=== PATIENT | female | born 1980 | race Two or more races ===

== ENCOUNTER → 2023-02-17 09:18 | Outpatient (BNVA) | payer MEDICAID, SELFPAY | PROVIDERS: PCP Physician Assistant; Visit Provider Surgery ==

== ENCOUNTER 2023-03-22 08:38 | Outpatient (AMB) | payer MEDICAID, SELFPAY ==
--- OUTSIDE RECORDS SUMMARY | 2023-03-22 08:40 | XMS_ITS | Continuity of Care Document ---
Author Name Unknown Organization [facility] Address [address] [place] [address]- Care Team Providers Care Container Washer Machine Name Role Phone Wendie Love NP Primary Care Physician [id number] Date(s): [facility] - 09/08/19 [facility] [address] [place] [address]- [facility] Encounter Diagnosis Left serous otitis media(Discharge Diagnosis) - 09/01/19 Attending Physician: Emil Crespo MD Referring Physician: Wendie Love NP Allergies, Adverse Reactions, Alerts No Known Medication Allergies Medications Flonase 50 mcg/inh nasal spray See Instructions, 2 sprays both nares twice daily for 1 week, then once daily for one week, # 16 Gm, 0 Refills, Maintenance, 09/01/19 12:15:00 EDT, [place], [id number], 2 sprays both nares twice daily for 1 week, then once daily for o... Start Date: 09/01/19 Status: Ordered Problem List Condition Effective Dates Status Health Status Inform ant Amenorrhea(Confirmed) Active Pain, pelvic, female(Confirmed) Active Diagnosis Diagnosis Type Effective Dates Health Status Cl inical Service Informant Left serous otitis media Discharge Diagnosis 09/01/19 Vital Signs Most recent to oldest [Reference Range]: 1 Height 160 cm (09/01/19 11:57 AM) Weight 126.7 kg (09/01/19 11:57 AM) Oxygen Saturation [94-100 %] 98 % (09/01/19 11:57 AM) Pulse Rate [55-90 bpm] 95 bpm *H* (09/01/19 11:57 AM) Body Mass Index [18.5-24.99] 49.49 *>HHI* (09/01/19 11:57 AM) Blood Pressure [90-138/55-84 mm Hg] 138/ 86mm Hg (09/01/19 11:57 AM) Respiratory Rate [16-30 br/min] 18 br/mi n (09/01/19 11:57 AM) Temperature [96.8-100.4 DegF] 98.0 DegF (09/01/19 11:57 AM) Mode of Delivery (Oxygen) Room air (09/01/19 11:57 AM) Blood pressure sites Arm, right (09/01/19 11:57 AM) Temperature Route Temporal (09/01/19 11:57 AM) Dry Weight 126.7 kg (09/01/19 11:57 AM) Weight Obtained Via Standing scale (09/01/19 11:57 AM) Dry Weight Obtained Via Standing scale (09/01/19 11:57 AM) Social History Social History Type Response Smoking Status Never smoker entered on: 01/30/16 Sex
--- OUTSIDE RECORDS SUMMARY | 2023-03-22 08:40 | XMS_ITS | Continuity of Care Document ---
Author Name Unknown Organization [facility] Address [address] [place] [address]- Care Team Providers Care Farm Consultant Name Role Phone Not on Staff, PCP Primary Care Physician Unavail able Encounter [facility] [place] Date(s): 10/16/22 - 11/15/22 [facility] [address] [place] [address]- Attending Physician: Arnoldo Mora Admitting Physician: Arnoldo Mora Referring Physician: AdmtrArnoldo Allergies, Adverse Reactions, Alerts No Known Medication Allergies Medications betamethasone topical valerate 0.1% ointment 1 application, Topically, 2 times a day, PRN Itch, apply thin film to affected area, # 45 Gm, 0 Refills, Maintenance, 10/16/22 13:18:00 EDT, Oint[place], [facility] #[id number], Partial fill upon patient request if the prescription is for a schedule... Start Date: 10/16/22 Status: Ordered Flonase 50 mcg/inh nasal spray See Instructions, 2 sprays both nares twice daily for 1 week, then once daily for one week, # 16 Gm, 0 Refills, Maintenance, 09/01/19 12:15:00 EDT, [place], [facility] #[id number], 2 sprays both nares twice daily for 1 week, then once daily for o... Start Date: 09/01/19 Status: Ordered Problem List Condition Confirmation Course Effective Dates Status Health St atus Informant Amenorrhea Confirmed Active Pain, pelvic, female Confirmed Active Social History Social History Type Response Smoking Status Never smoker entered on: 01/30/16 Sex Patient Care team information Care Team Personnel Name: Deepika Phillips RN Position: [facility] RN Member Role: Primary Care Nurse Name: Not on Staff, PCP Position: [facility] Physician (General Medicine) Member Role: PCP Care Team Related Persons Name: AKBAR SINGLETARY Address: home [address] [place] [id number] Name: GERARD MARTINEZ Name: ORA ROSS Address: [address] [address]
--- OUTSIDE RECORDS SUMMARY | 2023-03-22 08:40 | XMS_ITS | Continuity of Care Document ---
Author Name Unknown Organization [facility] Address [address] [place] [address]- Care Team Providers Care Continuing Education Instructor Name Role Phone Wendie Love Primary Care Physician [phone] [place] [facility] [place] - 02/17/19 [facility] [address] [address]- [facility] Attending Physician: Arnoldo Mora Admitting Physician: Arnoldo Mora Referring Physician: Arnoldo Mora Allergies, Adverse Reactions, Alerts No Known Medication Allergies Problem List Condition Effective Dates Status Health Status Inform ant Amenorrhea(Confirmed) Active Pain, pelvic, female(Confirmed) Active Social History Social History Type Response Smoking Status Never smoker entered on: 01/30/16 Sex
--- OUTSIDE RECORDS SUMMARY | 2023-03-22 08:40 | XMS_ITS | Continuity of Care Document ---
Author Name Unknown Organization [facility] Address [address] [place] [address]- Care Team Providers Care Superintendent House Name Role Phone Not on Staff, PCP Primary Care Physician Unavail able En[place] [facility] [place] Date(s): 08/09/20 - 08/16/20 [facility] [address] [place] [address]- Attending Physician: Ramona Proctor MD Allergies, Adverse Reactions, Alerts No Known Medication Allergies Medications Bactrim DS 800 mg-160 mg oral tablet 1 tablet, By Mouth, 2 times a day, for 10 days, # 20 tablet, 0 Refills, Acute 08/19/20 11:30:00 EDT, 08/09/20 11:30:00 EDT, [place], [email or web address][id number], Partial fill upon patient request if the prescription is for a schedule II opioid drug., 1... Start Date: 08/09/20 Stop Date: 08/19/20 Status: Ordered Flonase 50 mcg/inh nasal spray See Instructions, 2 sprays both nares twice daily for 1 week, then once daily for one week, # 16 Gm, 0 Refills, Maintenance, 09/01/19 12:15:00 EDT, [place], [email or web address] #[id number], 2 sprays both nares twice daily for 1 week, then once daily for o... Start Date: 09/01/19 Status: Ordered Problem List Condition Effective Dates Status Health Status Inform ant Amenorrhea(Confirmed) Active Pain, pelvic, female(Confirmed) Active Vital Signs Most recent to oldest [Reference Range]: 1 Height 160 cm (08/09/20 11:09 AM) Oxygen Saturation [94-100 %] 100 % (08/09/20 11:09 AM) Pulse Rate [55-90 bpm] 85 bpm (08/09/20 11:09 AM) Blood Pressure [90-138/55-84 mm Hg] 118/ 75mm Hg (08/09/20 11:09 AM) Respiratory Rate [16-30 br/min] 20 br/mi n (08/09/20 11:09 AM) Temperature [96.8-100.4 DegF] 96.9 DegF (08/09/20 11:09 AM) Mode of Delivery (Oxygen) Room air (08/09/20 11:09 AM) Blood pressure sites Arm, right (08/09/20 11:09 AM) Social History Social History Type Response Smoking Status Never smoker entered on: 01/30/16 Sex
--- OUTSIDE RECORDS SUMMARY | 2023-03-22 08:40 | XMS_ITS | Continuity of Care Document ---
Author Name Unknown Organization [facility] Address [address] [place] [address]- Care Team Providers Care Residential Lawn Specialist Name Role Phone Not on Staff, PCP Primary Care Physician Unavail able Encounter [facility] [place] Date(s): 02/16/21 - 02/23/21 [facility] [address] [place] [address]- Attending Physician: Ramona Proctor MD Referring Physician: Mei Joya Allergies, Adverse Reactions, Alerts No Known Medication Allergies Medications Flonase 50 mcg/inh nasal spray See Instructions, 2 sprays both nares twice daily for 1 week, then once daily for one week, # 16 Gm, 0 Refills, Maintenance, 09/01/19 12:15:00 EDT, [place], [facility] #[id number], 2 sprays both nares twice daily for 1 week, then once daily for o... Start Date: 09/01/19 Status: Ordered ibuprofen 600 mg oral tablet 600 mg, 1, tablet, By Mouth, 3 times a day, PRN, for 10 days, Take with food, # 30 tablet, Refills 0, Tot. Refills 0, Acute 02/26/21 10:21:00 EST, pain, 02/16/21 10:21:00 EST, Route to Pharmacy Electronically, [facility] #[id number], Label in SPa... Start Date: 02/16/21 Stop Date: 02/26/21 Status: Ordered Problem List Condition Effective Dates Status Health Status Inform ant Amenorrhea(Confirmed) Active Pain, pelvic, female(Confirmed) Active Social History Social History Type Response Smoking Status Never smoker entered on: 01/30/16 Sex
--- OUTSIDE RECORDS SUMMARY | 2023-03-22 08:40 | XMS_ITS | Continuity of Care Document ---
Author Name Unknown Organization [facility] Address [address] [place] [address]- Care Team Providers Care Global Lead Name Role Phone Not on Staff, PCP Primary Care Physician Unavail able Encounter [facility] [place] Date(s): 03/03/20 - 03/04/[address] [address]- Encounter Diagnosis Palpitations(Final) - 03/04/20 Discharge Disposition: A-D/C Home Attending Physician: Elia Tam MD Admitting Physician: Elia Tam MD Referring Physician: Not on Staff, Referring MD Allergies, Adverse Reactions, Alerts No Known Medication Allergies Medications Flonase 50 mcg/inh nasal spray See Instructions, 2 sprays both nares twice daily for 1 week, then once daily for one week, # 16 Gm, 0 Refills, Maintenance, 09/01/19 12:15:00 EDT, [place], [facility] #[id number], 2 sprays both nares twice daily for 1 week, then once daily for o... Start Date: 09/01/19 Status: Ordered Problem List Condition Effective Dates Status Health Status Inform ant Amenorrhea(Confirmed) Active Pain, pelvic, female(Confirmed) Active Results Radiology Reports * Exam Date Time Procedure Performing Provider Status 03/04/20 2:25 AM Chest 2 Views Frontal and Lat Moses Stevens (Verified) Notes: (Chest 2 Views Frontal and Lat) Reason For Exam: Shortness of Breath, Fever;Other: RESULT: Chest 2 Views Frontal and Lat Examination: Chest performed on 03/04/2019. History: Palpitations and left chest pain. Findings: Frontal and lateral views of the chest are compared to a prior study dated 02/17/[address] chest dated 01/07/2018. The cardiac and mediastinal silhouettes are within normal limits. The lungs are clear. A right pleural-based mass appears to have increased slightly in size since the prior study, currently measuring4.3 cm, previously 4.2 cm. The difference in size may be projectional. This corresponds to a mixed fat density lesion on CT. The osseous and soft tissue structures are unremarkable. Impression: There is no acute cardiopulmonary disease. Pleural-based mass within the right upper lobe corresponding to the CT abnormality. Given the mixed density on CT, a follow-up CT may be obtained to assess for interval change. A Yellow message has been communicated via the [employer] system on 03/04/2020 8:12 AM, Message ID [id number]. WSN: [id number] Ordering Physician: Kaylynn Fernandes Dictated By: Corrie Workman MD Dictated Date/Time: 03/04/20 8:13 am Reviewed By: Corrie Workman MD Signed By: Corrie Workman MD Signed Date/Time: 03/04/20 8:13 am Transcribed By: BRUCE Transcribed Date/Time: 03/04/20 8:11 am Vital Signs Most recent to oldest [Reference Range]: 1 2 3 Oxygen Saturation [94-100 %] 100 % (03/04/20 3:24 AM) 100 % (03/03/20 7:15 PM) 100 % (03/03/20 2:42 PM) Pulse Rate [55-90 bpm] 75 bpm (03/04/20 3:24 AM) 92 bpm *H* (03/03/20 7:15 PM) 88 bpm (03/03/20 2:42 PM) Blood Pressure [90-138/55-84 mm Hg] 146/90mm Hg *H* (03/04/20 3:24 AM) 147/79mm Hg *H* (03/03/20 7:15 PM) 144/101mm Hg *H* (03/03/20 2:42 PM) Respiratory Rate [16-30 br/min] 16 br/min (03/04/20 3:24 AM) 16 br/min (03/03/20 7:15 PM) 18 br/min (03/03/20 2:42 PM) Temperature [96.8-100.4 DegF] 97.7 DegF (03/04/20 3:24 AM) 98.1 DegF (03/03/20 2:42 PM) Mode of Delivery (Oxygen) Room air (03/04/20 3:24 AM) Room air (03/03/20 7:15 PM) Room air (03/03/20 2:42 PM) Blood pressure sites Arm, right (03/04/20 3:24 AM) Arm, right (03/03/20 7:15 PM) Temperature Route Oral (03/04/20 3:24 AM) Oral (03/03/20 2:42 PM) Social History Social History Type Response Smoking Status Never smoker entered on: 01/30/16 Sex
--- OUTSIDE RECORDS SUMMARY | 2023-03-22 08:40 | XMS_ITS | Continuity of Care Document ---
Author Name Unknown Organization [facility] Address [address] [place] [address]- Care Team Providers Care Bass Mechanism Maker Name Role Phone Mei Joya Primary Care Physicia n Encounter [facility] [id number] Date(s): 10/16/22 - 10/23/22 [facility] [address] [place] [address]- Encounter Diagnosis Rash(Discharge Diagnosis) - 10/16/22 Attending Physician: Cayden STEPHESNON, Linnea Parmar Referring Physician: Not on Staff, Referring MD Allergies, Adverse Reactions, Alerts No Known Medication Allergies Medications betamethasone topical valerate 0.1% ointment 1 application, Topically, 2 times a day, PRN Itch, apply thin film to affected area, # 45 Gm, 0 Refills, Maintenance, 10/16/22 13:18:00 EDT, [place]int[place], [facility] #[id number], Partial fill upon patient request if the prescription is for a schedule... Start Date: 10/16/22 Status: Ordered Flonase 50 mcg/inh nasal spray See Instructions, 2 sprays both nares twice daily for 1 week, then once daily for one week, # 16 Gm, 0 Refills, Maintenance, 09/01/19 12:15:00 EDT, [place], [id number], 2 sprays both nares twice daily for 1 week, then once daily for o... Start Date: 09/01/19 Status: Ordered Problem List Condition Confirmation Course Effective Dates Status Health St atus Informant Amenorrhea Confirmed Active Pain, pelvic, female Confirmed Active Diagnosis Diagnosis Type Effective Dates Health Status Clini karli Service Informant Rash Discharge Diagnosis 10/16/22 Vital Signs Most recent to oldest [Reference Range]: 1 Height 160 cm (10/16/22 12:52 PM) Oxygen Saturation [94-100 %] 98 % (10/16/22 12:52 PM) Pulse Rate [55-90 bpm] 62 bpm (10/16/22 12:52 PM) Blood Pressure [90-138/55-84 mm Hg] 127/ 58mm Hg (10/16/22 12:52 PM) Respiratory Rate [16-30 br/min] 16 br/mi n (10/16/22 12:52 PM) Temperature [96.8-100.4 DegF] 98.1 DegF (10/16/22 12:52 PM) Mode of Delivery (Oxygen) Room air (10/16/22 12:52 PM) Blood pressure sites Arm, right (10/16/22 12:52 PM) Temperature Route Oral (10/16/22 12:52 PM) Social History Social History Type Response Smoking Status Never smoker entered on: 01/30/16 Sex Note * Kaleigh Ibarra: PERFORM, SIGN, VERIFY Event Display: Patient Education/Instruction Authored Date: [id number] [facility] *[facility] Clinical Summary Name SANDRA ESCOBEDO Age 42 Years 1980 PCP Not on Staff, PCP PCP Phone Visit Date 10/16/2022 12:00:00 Additional Instructions: Scheduled Appointments?? Future Appointments ?[facility] ?[address]??[place],??[place],??[address] ?Phone:??[phone]?Fax:??-- ?Appt. Date:??10/22/2022?2:00 PM ?Scheduled Provider:??[facility] 5 Follow-Up Instructions ?? Diagnosis Rash and other nonspecific skin eruption Medications: Please continue your medications until treatment is completed or stopped by your provider. Discuss any questions related to medications with your provider. New Medications [facility] #[id number], [address], [place] [id number], [phone] Betamethasone Topical (betamethasone topical valerate 0.1% ointment) 1 brad Topically twice a day asneeded Itch. apply thin film to affected area. Refills: 0. Next Dose: Medications to Continue with No Changes These medications were not printed or sent to your pharmacy Fluticasone Nasal (Flonase 50 mcg/inh nasal spray) 2 sprays both nares twice daily for 1 week, thenonce daily for one week. Refills: 0. Next Dose: Allergy Info:?? No Known Medication Allergies Medications Given This Visit Future Orders ?No future orders Vital Signs Height 160 cm Weight BMI Blood Pressure 127 mm Hg/58 mm Hg Temperature 98.1 DegF Pulse Rate 62 bpm Respiratory Rate 16 br/min 02 Sat Mode of Delivery 98 %/Room air You can now view a summary of your hospital visit from the comfort of your home through a free online portal called [employer]. [employer] is a website that allows you to securely view your medical information including discharge summary, medications and follow-up visits. ??You can alsosend a secure electronic message to your doctor???s office to request appointments, renew medications or just ask a question. You can enroll at [email or web address] or register during your next office visit. Disclaimer:?? The information provided is of a general nature and is intended to be used in conjunction with the recommendations and advice of your health care practitioner. ??Every effort has been made to ensure that the information provided is accurate and complete at the time it is provided to you however, as your needs change, or, as new ??information becomes available, different or additional instructions may be required. If you have questions, please consult with your primary care provider or pharmacist, as appropriate. ??This information is not intended to serve as substitution for assessment and evaluation by a qualified health care provider. If you do not have a primary care provider, you may find a [facility] provider by calling [facility] Remote Assistant [facility] at [phone]. For information about the plan of care including goals and instructions for your diagnosis, please see the patient education orders section of this document. Patient Education Materials?? The content of this educational material or handout may have been modified, supplemented, or adapted from its original content and format to support your individualized medical care. Patient Care team information Care Team Personnel Name: Deepika Phillips RN Position: S RN Member Role: Primary Care Nurse Name: Mei Joya Position: Reference Physician Member Role: PCP Address: Address: [address] [place] [address]- Care Team Related Persons Name: AKBAR SINGLETARY Address: [address] [address] Name: GERARD MARTINEZ Name: ORA ROSS Address: [place] [address]
--- OUTSIDE RECORDS SUMMARY | 2023-03-22 08:40 | XMS_ITS | Continuity of Care Document ---
Author Name Unknown Organization [facility] Address [address] [place] [address]- Care Team Providers Care And Rescue Fire Fighter Crash Fire Name Role Phone Not on Staff, PCP Primary Care Physician Unavail able Encounter [facility] [place] Date(s): 11/18/22 - 11/25/22 [facility] [address] [place] [address]- Encounter Diagnosis Herpes labialis(Discharge Diagnosis) - 11/18/22 Attending Physician: Ramona Proctor MD Referring Physician: Mei Joya Allergies, Adverse Reactions, Alerts No Known Medication Allergies Medications betamethasone topical valerate 0.1% ointment 1 application, Topically, 2 times a day, PRN Itch, apply thin film to affected area, # 45 Gm, 0 Refills, Maintenance, 10/16/22 13:18:00 EDT, [place], [facility] #[id number], Partial fill upon patient request if the prescription is for a schedule... Start Date: 10/16/22 Status: Ordered Flonase 50 mcg/inh nasal spray See Instructions, 2 sprays both nares twice daily for 1 week, then once daily for one week, # 16 Gm, 0 Refills, Maintenance, 09/01/19 12:15:00 EDT, [place], [facility] #[id number], 2 sprays both nares twice daily for 1 week, then once daily for o... Start Date: 09/01/19 Status: Ordered Problem List Condition Confirmation Course Effective Dates Status Health St atus Informant Amenorrhea Confirmed Active Pain, pelvic, female Confirmed Active Diagnosis Diagnosis Type Effective Dates Health Status Cl inical Service Informant Herpes labialis Discharge Diagnosis 9/20/23 Vital Signs Most recent to oldest [Reference Range]: 1 Height 160 cm (11/18/22 1:15 PM) Oxygen Saturation [94-100 %] 97 % (11/18/22 1:15 PM) Pulse Rate [55-90 bpm] 75 bpm (11/18/22 1:15 PM) Blood Pressure [90-138/55-84 mm Hg] 134/ 89mm Hg (11/18/22 1:15 PM) Temperature [96.8-100.4 DegF] 97.2 DegF (11/18/22 1:15 PM) Mode of Delivery (Oxygen) Room air (11/18/22 1:15 PM) Blood pressure sites Arm, right (11/18/22 1:15 PM) Temperature Route Temporal (11/18/22 1:15 PM) Social History Social History Type Response Smoking Status Never smoker entered on: 01/30/16 Sex Note * Saundra Weinstein: PERFORM, SIGN, VERIFY Event Display: Patient Education/Instruction Authored Date: [id number] *[facility] Clinical Summary Name SANDRA ESCOBEDO Age 42 Years 1980 PCP Not on Staff, PCP PCP Phone Visit Date 11/18/2022 11:35:00 Additional Instructions: Scheduled Appointments?? Future Appointments ?No Future Appointments Scheduled Follow-Up Instructions ?? Diagnosis Medications: Please continue your medications until treatment is completed or stopped by your provider. Discuss any questions related to medications with your provider. Medications to Continue with No Changes These medications were not printed or sent to your pharmacy Betamethasone Topical (betamethasone topical valerate 0.1% ointment) 1 brad Topically twice a day asneeded Itch. apply thin film to affected area. Refills: 0. Next Dose: Fluticasone Nasal (Flonase 50 mcg/inh nasal spray) 2 sprays both nares twice daily for 1 week, thenonce daily for one week. Refills: 0. Next Dose: Allergy Info:?? No Known Medication Allergies Medications Given This Visit Future Orders ?No future orders Vital Signs Height 160 cm Weight BMI Blood Pressure 134 mm Hg/89 mm Hg Temperature 97.2 DegF Pulse Rate 75 bpm Respiratory Rate 02 Sat Mode of Delivery 97 %/Room air You can now view a summary of your hospital visit from the comfort of your home through a free online portal called [employer]. [employer] is a website that allows you to securely view your medical information including discharge summary, medications and follow-up visits. ??You can alsosend a secure electronic message to your doctor???s office to request appointments, renew medications or just ask a question. You can enroll at [email or web address] or register during your next office visit. [...] primary care provider, you may find a [facility] provider by calling [facility] [facility] at [phone]. [facility], in keeping with [facility] guidance, no longer requires face masks for staff, patientsor visitors in most situations. Similar to time spent indoors at other locations, there is the chance that you were exposed to respiratory viruses during your time with us (such as flu or COVID-19).? If you develop symptoms concerning for a viral respiratory infection, please seek testing (and treatment if indicated) from your medical provider or home test kit. For information about the plan of care [...] Nurse Name: Not on Staff, PCP Position: [facility] Physician (General Medicine) Member Role: PCP Care Team Related Persons Name: AKBAR SINGLETARY Address: [place] [address] Name: GERARD MARTINEZ Name: ORA ROSS Address: [place] [address]
--- OUTSIDE RECORDS SUMMARY | 2023-03-22 08:40 | XMS_ITS | Continuity of Care Document ---
Author Name Unknown Organization [facility] Address [address] [place] [address]- Care Team Providers Care Spindle Carver Name Role Phone Not on Staff, PCP Primary Care Physician Unavail able Encounter [facility] Date(s): 02/16/21 - 03/18/21 [facility] [address] [place] [address]- Attending Physician: Arnoldo Mora Admitting Physician: Arnoldo Mora Referring Physician: AdmtrArnoldo Allergies, Adverse Reactions, Alerts No Known Medication Allergies Medications Flonase 50 mcg/inh nasal spray See Instructions, 2 sprays both nares twice daily for 1 week, then once daily for one week, # 16 Gm, 0 Refills, Maintenance, 09/01/19 12:15:00 EDT, [place], [facility] #[id number], 2 sprays both nares twice daily for 1 week, then once daily for o... Start Date: 09/01/19 Status: Ordered Problem List Condition Effective Dates Status Health Status Inform ant Amenorrhea(Confirmed) Active Pain, pelvic, female(Confirmed) Active Social History Social History Type Response Smoking Status Never smoker entered on: 01/30/16 Sex
--- OUTSIDE RECORDS SUMMARY | 2023-03-22 08:40 | XMS_ITS | Continuity of Care Document ---
Author Name Unknown Organization [facility] Address [address] [place] [address]- Care Team Providers Care Primary Operator Name Role Phone Not on Staff, PCP Primary Care Physician Unavail able Encounter [facility] Date(s): 08/09/20 - 09/08/20 [facility] [address] [place] [address]- Attending Physician: Arnoldo Mora Admitting Physician: Arnoldo Mora Referring Physician: AdmtrArnoldo Allergies, Adverse Reactions, Alerts No Known Medication Allergies Medications Flonase 50 mcg/inh nasal spray See Instructions, 2 sprays both nares twice daily for 1 week, then once daily for one week, # 16 Gm, 0 Refills, Maintenance, 09/01/19 12:15:00 EDT, [place], [facility] #[id number], 2 sprays both nares twice daily for 1 week, then once daily for o... Start Date: 09/01/19 Status: Ordered Problem List Condition Effective Dates Status Health Status Inform ant Amenorrhea(Confirmed) Active Pain, pelvic, female(Confirmed) Active Social History Social History Type Response Smoking Status Never smoker entered on: 01/30/16 Sex
--- OUTSIDE RECORDS SUMMARY | 2023-03-22 08:40 | XMS_ITS | Continuity of Care Document ---
Author Name Unknown Organization [facility] Address [address] [place] [address]- Care Team Providers Care Central Office Supervisor Name Role Phone Not on Staff, PCP Primary Care Physician Unavail able Encounter [facility] [place] Date(s): 11/18/22 - 12/18/22 [facility] [address] [place] [address]- Attending Physician: Arnoldo Mora Admitting Physician: Arnoldo Mora Referring Physician: AdmtrArnoldo Allergies, Adverse Reactions, Alerts No Known Medication Allergies Medications betamethasone topical valerate 0.1% ointment 1 application, Topically, 2 times a day, PRN Itch, apply thin film to affected area, # 45 Gm, 0 Refills, Maintenance, 10/16/22 13:18:00 EDT, [place], [facility] #[id number], Partial fill upon patient request if the prescription is for a schedule... Start Date: 10/16/22 Status: Ordered Flonase 50 mcg/inh nasal spray See Instructions, 2 sprays both nares twice daily for 1 week, then once daily for one week, # 16 Gm, 0 Refills, Maintenance, 09/01/19 12:15:00 EDT, [place], [facility] #[id number], 2 sprays both nares twice daily for [...] Nurse Name: Not on Staff, PCP Position: [facility] Physician (General Medicine) Member Role: PCP Care Team Related Persons Name: AKBAR SINGLETARY Address: home [address] [place] [id number] Name: GERARD MARTINEZ Name: ORA ROSS Address: [address] [address]
--- OUTSIDE RECORDS SUMMARY | 2023-03-22 08:40 | XMS_ITS | Continuity of Care Document ---
Author Name Unknown Organization [facility] Address [address] [place] [address]- Care Team Providers Care Nurse Transitional Name Role Phone Kate HINOJOSA, Wendie Primary Care Physician [phone] Encounter [facility] [place] Date(s): 09/01/19 - 10/01/19 [facility] [address] [place] [address]- [facility] Attending Physician: Arnoldo Mora Admitting Physician: Arnoldo Mora Referring Physician: Arnoldo Mora Allergies, Adverse Reactions, Alerts No Known Medication Allergies Medications Flonase 50 mcg/inh nasal spray See Instructions, 2 sprays both nares twice daily for 1 week, then once daily for one week, # 16 Gm, 0 Refills, Maintenance, 09/01/19 12:15:00 EDT, [place], [facility] #[id number], 2 sprays both nares twice daily for 1 week, then once daily for o... Start Date: 09/01/19 Status: Ordered Problem List Condition Effective Dates Status Health Status Inform ant Amenorrhea(Confirmed) Active Pain, pelvic, female(Confirmed) Active Social History Social History Type Response Smoking Status Never smoker entered on: 01/30/16 Sex
--- OUTSIDE RECORDS SUMMARY | 2023-03-22 08:40 | XMS_ITS | Continuity of Care Document ---
Author Name Unknown Organization [facility] Address [address] [place] [address]- Care Team Providers Care Bottle Selector Name Role Phone Not on Staff, PCP Primary Care Physician Unavail able Encounter [facility] [place] Date(s): 06/26/21 - 07/26/21 [facility] [address] [place] [address]- Attending Physician: Arnoldo Mora Admitting Physician: Arnoldo Mora Referring Physician: trArnoldo Allergies, Adverse Reactions, Alerts No Known Medication Allergies Medications Flonase 50 mcg/inh nasal spray See Instructions, 2 sprays both nares twice daily for 1 week, then once daily for one week, # 16 Gm, 0 Refills, Maintenance, 09/01/19 12:15:00 EDT, [place], [facility] #[id number], 2 sprays both nares twice daily for 1 week, then once daily for o... Start Date: 09/01/19 Status: Ordered Problem List Condition Effective Dates Status Health Status Inform ant Amenorrhea(Confirmed) Active Pain, pelvic, female(Confirmed) Active Social History Social History Type Response Smoking Status Never smoker entered on: 01/30/16 Sex
--- OUTSIDE RECORDS SUMMARY | 2023-03-22 08:40 | XMS_ITS | Continuity of Care Document ---
Author Name Unknown Organization [facility] Address [address] [place] [address]- Care Team Providers Care Executive Chairman Name Role Phone Not on Staff, PCP Primary Care Physician Unavail able Encounter [facility] [place](s): 06/26/21 - 07/03/21 [facility] [address] [place] [address]- Attending Physician: Hunter Bass DO Referring Physician: Mei Joya Allergies, Adverse Reactions, Alerts No Known Medication Allergies Medications Flonase 50 mcg/inh nasal spray See Instructions, 2 sprays both nares twice daily for 1 week, then once daily for one week, # 16 Gm, 0 Refills, Maintenance, 09/01/19 12:15:00 EDT, [place], [facility] #[id number], 2 sprays both nares twice daily for 1 week, then once daily for o... Start Date: 09/01/19 Status: Ordered Problem List Condition Effective Dates Status Health Status Inform ant Amenorrhea(Confirmed) Active Pain, pelvic, female(Confirmed) Active Vital Signs Most recent to oldest [Reference Range]: 1 Height 160 cm (06/26/21 4:36 PM) Oxygen Saturation [94-100 %] 100 % (06/26/21 4:36 PM) Pulse Rate [55-90 bpm] 54 bpm *L* (06/26/21 4:36 PM) Blood Pressure [90-138/55-84 mm Hg] 118/ 74mm Hg (06/26/21 4:36 PM) Respiratory Rate [16-30 br/min] 24 br/mi n (06/26/21 4:36 PM) Temperature [96.8-100.4 DegF] 98.7 DegF (06/26/21 4:36 PM) Mode of Delivery (Oxygen) Room air (06/26/21 4:36 PM) Blood pressure sites Arm, left (06/26/21 4:36 PM) Temperature Route Temporal (06/26/21 4:36 PM) Social History Social History Type Response Smoking Status Never smoker entered on: 01/30/16 Sex
--- NOTE | 2023-03-22 13:15 | MHC.OFFVISWM ---
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* HPI Details Start time: 1.10m, End time: 1.47pm ?I spent 32 minutes speaking with the patient on the phone plus an additional 5 minutes reviewing and updating records for a total of 37 minutes HPI Comments History of Present Illness Details Previous weight loss efforts: diet teas Wakes up: 5am, sleeps: 11pm Breakfast: skips Lunch: skips Dinner: 5pm (rice, beans and meat) Snacks: 12pm (sandwich, fries), 7-8pm (ice cream) Exercise: none, has home stationary bike Fluids: Coffee 1cup/day (cream), tea: none, soda: none, juice: occasionaly apple juice, ETOH: 1 beer per week some weeks PFSH Medical History (Updated 03/22/23 @ 13:19 by Angel Hull MD) GERD (gastroesophageal reflux disease) DJD (degenerative joint disease) Morbid obesity Surgical History (Updated 02/17/23 @ 10:07 by Josette Nguyen CMA) Hx of section Family History (Updated 02/17/23 @ 10:09 by Josette Nguyen CMA) Mother Hypertension Alzheimer disease Father Hypertension Diabetes Daughter No problems noted. Daughter No problems noted. Son Autism Social History (Updated 02/17/23 @ 10:09 by Josette Nguyen CMA) Alcohol intake: current Patient Tobacco Use Status: Never used Tobacco Assessment & Plan Assessment & Plan (1) Morbid obesity: Code(s): E66.01 - Morbid (severe) obesity due to excess calories Plan: 1.? Plan for lap sleeve gastrectomy. If diaphragmatic or ventral hernias are present at time of surgery, these will be repaired laparoscopically as well. Risks and complications were discussed in detail including possible conversion to an open procedure, anastomotic leak, bleeding requiring transfusion, small bowel obstruction, , DVT and pulmonary embolism, cardiac, or pulmonary complications, as longterm complications such as anastomotic ulcer, insufficient weight loss and vitamin deficiencies. I emphasized the importance of close follow-up, adherence to instructions and good communication. 2. Nutritional counseling. Start with 2 Isopure INFUSION protein shakes (buy at [employer]) shakes (HALF scoop EACH in 8oz water) at 6am-8am and 9am-11am, 2 protein bars (Zone Perfect protein bars, buy at [employer]) at 12pm-2pm and 3pm-5pm, dinner at 6pm (12 forks of protein and 12 forks of salad/vegetables) and one more protein bar after dinner at 8pm-10pm. So you do 2 protein shakes, 3 protein bars and one meal per day. Meal to include lean meat (beef, fish, pork, turkey, chicken), or wolof yogurt, or egg whites, or beans with a salad with olive oil and fruits (berries, pears, apples, kiwi). Avoid salt, breads, potatoes, rice, pasta, desserts. 3. Each shake would be drunk slowly, like coffee in a period of 2 hours. 4. Cut each bar in 4 pieces and eat each piece in 30min ?to make each bar last 2 hours. 5. I emphasized the importance of measuring accurately the food portion and measure it when serving the food in plate 6. The meal portions include 12 full-size forks of meat and 12 full-size forks of salad. You always eat the meat portion but you can replace up to 6 forks for salad/vegetables with rice, potatoes or pasta, or a fruit ?if you like. The less you do it the better weight loss will be. 7. One full-size fork is what it can be scooped on the fork without falling aside and not what can be bit with the fork. Use regular forks like those you find in a typical restaurant. 8.? Please send me weight measurements as soon as possible and then once a week. Always include your diet and exercise plan. 9. Alternatively start stationary bike at a resistance level of 4.0 Increase level by 1.0 every 3 min to a max level of 10.0. Stay at this level for 3 min and then return to level 4.0 and repeat same steps until 300 calories are burned. Goal is to burn 2000 calories per week on exercise, which means either 300 calories daily, or 400 calories 5 days per week, or 500 calories 4 days per week, or 650 calories 3 days per week. 10.?It is important of avoiding and for at least 18 months postoperatively and has been discussed at the infosession. 11. Goal is to lose at least 1.5-2lbs per week 12. Goal to lose 10% of your weight before surgery, which is about 28lbs. Ultimate weight goal: 254lbs before surgery 13. Please follow the diet plan exactly without any change. If you don't like something about the plan or you feel hungry you need to communicate with me so I can help you revise the plan. You should not change the plan yourself. Orders: Orders H Pylori Breath Test Today E66.01 - Morbid (severe) obesity due to excess calories, K21.9 - Gastro-esophageal reflux disease without esophagitis Complete Blood Count Auto Diff Today E66.01 - Morbid (severe) obesity due to excess calories, K21.9 - Gastro-esophageal reflux disease without esophagitis Lipid Panel Today E66.01 - Morbid (severe) obesity due to excess calories, K21.9 - Gastro-esophageal reflux disease without esophagitis Comprehensive Met. Panel Today E66.01 - Morbid (severe) obesity due to excess calories, K21.9 - Gastro-esophageal reflux disease without esophagitis Vitamin B12 and Folate Today E66.01 - Morbid (severe) obesity due to excess calories, K21.9 - Gastro-esophageal reflux disease without esophagitis C Reactive Protein Today E66.01 - Morbid (severe) obesity due to excess calories, K21.9 - Gastro-esophageal reflux disease without esophagitis Vitamin B1 Today E66.01 - Morbid (severe) obesity due to excess calories, K21.9 - Gastro-esophageal reflux disease without esophagitis US abdomen comp w elastography Today E66.01 - Morbid (severe) obesity due to excess calories, K21.9 - Gastro-esophageal reflux disease without esophagitis Insulin Today E66.01 - Morbid (severe) obesity due to excess calories, K21.9 - Gastro-esophageal reflux disease without esophagitis Hemoglobin A1c Today E66.01 - Morbid (severe) obesity due to excess calories, K21.9 - Gastro-esophageal reflux disease without esophagitis IRON PROFILE Today E66.01 - Morbid (severe) obesity due to excess calories, K21.9 - Gastro-esophageal reflux disease without esophagitis Zinc Today E66.01 - Morbid (severe) obesity due to excess calories, K21.9 - Gastro-esophageal reflux disease without esophagitis Vitamin A Today E66.01 - Morbid (severe) obesity due to excess calories, K21.9 - Gastro-esophageal reflux disease without esophagitis TSH reflex Free T4 Today E66.01 - Morbid (severe) obesity due to excess calories, K21.9 - Gastro-esophageal reflux disease without esophagitis Ferritin Today E66.01 - Morbid (severe) obesity due to excess calories, K21.9 - Gastro-esophageal reflux disease without esophagitis Vitamin D 25-OH Total Today E66.01 - Morbid (severe) obesity due to excess calories, K21.9 - Gastro-esophageal reflux disease without esophagitis XR chest 2V Today E66.01 - Morbid (severe) obesity due to excess calories, K21.9 - Gastro-esophageal reflux disease without esophagitis ECG 12 lead EKG Today E66.01 - Morbid (severe) obesity due to excess calories, K21.9 - Gastro-esophageal reflux disease without esophagitis FL upper GI w air Today E66.01 - Morbid (severe) obesity due to excess calories, K21.9 - Gastro-esophageal reflux disease without esophagitis Referrals Behavioral Health Referral E66.01 - Morbid (severe) obesity due to excess calories, K21.9 - Gastro-esophageal reflux disease without esophagitis Nutrition/Dietitian Referral E66.01 - Morbid (severe) obesity due to excess calories, K21.9 - Gastro-esophageal reflux disease without esophagitis Telehealth Telehealth Location of provider rendering services: practice address Location of patient: address on file Patient Identification confirmed using: Name, : Yes Telehealth method: voice only Patient verbally consented to treatment: Yes Patient verbally consented to billing insurance company: Yes Patient informed of any privacy concerns related to visit: Yes Minutes spent on Phone/Video with Pt.: 37 Coding Level of Care Code Tele [facility] Pt Level 3 (03045) Diagnoses Morbid obesity E66.01 Time Spent (min) 37 Comment 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
[2023-03-22 13:25] VITALS: BMI 53.3
== END 2023-03-22 13:47 | disposition home or self-care (01) ==
LOC: HO.HBS 08:39
PROVIDERS: PCP Physician Assistant; Visit Provider Surgery
DX: E66.01 Morbid (severe) obesity due to excess calories (principal); Z68.43 Body mass index [BMI] 50.0-59.9, adult
CPT/HCPCS: 99203

== ENCOUNTER → 2023-03-22 08:38 | Outpatient (BNVA) | payer MEDICAID, SELFPAY | PROVIDERS: PCP Physician Assistant; Visit Provider Surgery ==

== ENCOUNTER 2023-03-26 08:59 | Outpatient (REF) | payer MEDICAID, SELFPAY ==
--- NOTE | ~2023-03-26 | XR_ITS ---
EXAMINATION: XR CHEST CLINICAL INFORMATION: Morbid severe obesity due to excess calories. COMPARISON: None available. TECHNIQUE: 2 views of the chest were obtained. FINDINGS: There is a 4.8 x 4.0 cm smooth round mass right upper lobe without any underlying bony erosive changes or calcification. Rest of lungs are well-expanded and clear. Heart size enlarged. Pulmonary vascularity is normal. No gross bony abnormality seen. XR/XR chest 2V IMPRESSION: 1. 4.8 x 4.0 cm smooth round mass right upper lobe. 2. Mild cardiomegaly. 3. Recommend CT correlation.
[2023-03-26 09:18] LABS: MANUAL DIFF FLAG NO
--- NOTE | 2023-03-26 09:24 | ECG_ITS ---
Test Reason : E66.01 Blood Pressure : / mmHG Vent. Rate : 067 BPM Atrial Rate : 067 BPM P-R Int : 132 ms QRS Dur : 084 ms QT Int : 404 ms P-R-T Axes : 025 004 003 degrees QTc Int : 426 ms Normal sinus rhythm Normal ECG No previous ECGs available Referred By: Angel Hull Electronically Signed By:Americo Kemp
[2023-03-26 09:36] LABS: Basophils Percent Auto 0.3 % (0-2); Eosinophils Absolute Auto 0.1 X10*3/uL (0.0-0.4); Eosinophils Percent Auto 1.2 % (0-4); Hematocrit 36.2 % (37.0-47.0); Hemoglobin 11.4 g/dl (12.0-16.0); Imm Gran Abs Auto 0.04 X10*3/uL (0.00-0.03); Imm Gran Pct Auto 0.4 % (0.0-0.4); Lymphocytes Absolute Auto 3.3 X10*3/uL (1.2-4.9); Mean Corpuscular HGB Conc 31.5 g/dl (31.0-35.0); Mean Corpuscular Hemoglobin 25.7 pg (27.0-33.0); Mean Corpuscular Volume 81.7 fL (80.0-98.0); Monocytes Absolute Auto 0.5 X10*3/uL (0.1-1.2); Monocytes Percent Auto 5.1 % (2-11); Neutrophils Absolute Auto 5.5 x10*3/uL (2.0-8.3); Platelet Count 412 X10*3/uL (160-400); Red Blood Count 4.43 X10*6/uL (4.20-5.50); Red Cell Distribution Width 13.6 % (11.0-16.0); White Blood Count 9.5 X10*3/uL (4.8-10.8)
[2023-03-26 09:44] LABS: Estimated Average Glucose 111 mg/dL; Hemoglobin A1c % 5.5 % (<6.0)
[2023-03-26 10:24] LABS: Alanine Aminotransferase 20 U/L (0-31); Albumin Level 4.1 g/dL (3.5-5.0); Alkaline Phosphatase 88 U/L (39-117); Anion Gap 13 (12-20); Aspartate Amino Transferase 18 U/L (5-31); Bilirubin Total 0.3 mg/dL (0.0-1.0); Blood Urea Nitrogen 13 mg/dL (9-16); C Reactive Protein 1.78 mg/dL (< or = 0.50); Calcium 9.6 mg/dL (8.4-10.2); Carbon Dioxide 27 mmol/L (22-29); Chloride 106 mmol/L (96-108); Cholesterol 168 mg/dL (<200); Estimated Glomerular Filt Rate > 60; Glucose Random 92 mg/dL (60-115); HDL Cholesterol 46 mg/dL (>40); Iron 50 mcg/dL (30-160); LDL Cholesterol Calculated 102 mg/dL (<100); Percent Iron Saturation 16 % (15-50); Potassium 3.9 mmol/L (3.3-5.1); Sodium 142 mmol/L (135-145); Total Iron Binding Capacity 305 mcg/dL (228-428); Total Protein 7.4 g/dL (6.5-8.0); Triglycerides 103 mg/dL (<150); Unsaturated Iron Binding 255 ug/dL
[2023-03-26 10:43] LABS: Ferritin 44 ng/mL (10-250); Insulin 14 uU/mL (2-29); TSH reflex Free T4 3.58 uIU/mL (0.32-4.0); Vitamin D 25-OH Total 12.1 ng/mL (>30)
[2023-03-26 10:45] LABS: Folate 9.2 ng/mL (> or = 4.0); Vitamin B12 290 pg/mL (200-900)
[2023-03-30 00:49] LABS: Zinc 84 mcg/dL (60-130)
[2023-03-30 18:00] LABS: Vitamin A 32 mcg/dL (38-98)
[2023-04-02 17:27] LABS: Vitamin B1 9 nmol/L (8-30)
== END 2023-03-26 09:00 | disposition home or self-care (01) ==
LOC: HO.XRAY 08:59
PROVIDERS: PCP Physician Assistant; Visit Provider Surgery
DX: E66.01 Morbid (severe) obesity due to excess calories (principal); K21.9 Gastro-esophageal reflux disease without esophagitis
CPT/HCPCS: 36415; 71046; 80053; 80061; 82306; 82607; 82728; 82746; 83036; 83525; 83540; 84425; 84443; 84590; 84630; 85025; 86140; 93005

== ENCOUNTER → 2023-03-26 09:24 | Outpatient (BNV) | payer MEDICAID, SELFPAY | PROVIDERS: PCP Physician Assistant; Visit Provider Internal Medicine Cardiovascular Disease | DX: Z01.810 Encounter for preprocedural cardiovascular examination (principal) | CPT/HCPCS: 93010 ==

== ENCOUNTER → 2023-04-07 09:51 | Outpatient (BNVA) | payer MEDICAID, SELFPAY | PROVIDERS: PCP Physician Assistant; Visit Provider Physician Assistant | DX: Z11.0 Encounter for screening for intestinal infectious diseases (principal) | CPT/HCPCS: 99211 ==

== ENCOUNTER 2023-04-08 09:15 | Outpatient (AMB) | payer MEDICAID, SELFPAY ==
--- NOTE | 2023-04-08 09:02 | MHC.AMNUTRGE ---
Intake Intake Visit Reasons: (TV) Initial Nutrition SW Employment Programs Analyst Required: Yes Employment Programs Analyst Name: jerel chen [id number] Information Interpreted: non-clinical & clinical Allergies No Known Allergies Allergy (Verified 03/22/23 13:16) HPI Nutrition Presentation Reason for consult elevated BMI Diet Assmnt Details Pt reports she has been following surgeons plan which is 2 bars and 1 shake . Has appt with MD tomorrow. meal - chicken adn salad or chicken and broccoli , potatoes and rice. SWL online classes: none , sent link today and pt reports she received it Dietary counseling reduction Who buys your food self Who prepares/cooks your food self Meal frequency regular: dinner and snacks (ice cream , cookies at night ), irregular: lunch and never: breakfast (coffee) Lifestyle Emotional Eating Reports anxiety Food frequency Processed foods/meats: daily, Water: daily, Soda: daily (gingerale ), Juice: never and Coffee: daily Diagnosis Nutrition problem #1 overweight/obesity As related to (etiology) #1 excess energy intake and unwilling to learn/apply As evidenced by (sign/symptom) #1 high BMI Monitoring/Goals Nutrition problem monitoring total energy intake, level of knowledge/skill, total PRO intake, total CHO intake and weight Learning/Education Readiness to learn fair Most Recent Diabetes Results: Cholesterol 168 mg/dL (<200) 03/26/23 HDL Cholesterol 46 mg/dL (>40) 03/26/23 Triglycerides 103 mg/dL (<150) 03/26/23 Creatinine 0.76 mg/dL (0.5-1.4) 03/26/23 Blood Urea Nitrogen 13 mg/dL (9-16) 03/26/23 Sodium 142 mmol/L (135-145) 03/26/23 Potassium 3.9 mmol/L (3.3-5.1) 03/26/23 Chloride 106 mmol/L (96-108) 03/26/23 Carbon Dioxide 27 mmol/L (22-29) 03/26/23 Calcium 9.6 mg/dL (8.4-10.2) 03/26/23 AST 18 U/L (5-31) 03/26/23 ALT 20 U/L (0-31) 03/26/23 Total Protein 7.4 g/dL (6.5-8.0) 03/26/23 Albumin 4.1 g/dL (3.5-5.0) 03/26/23 [facility] Medical History (Updated 03/30/23 @ 18:01 by Angel Hull MD) GERD (gastroesophageal reflux disease) DJD (degenerative joint disease) Morbid obesity (~03/30/23) Surgical History (Updated 02/17/23 @ 10:07 by Josette Nguyen CMA) Hx of section Family History (Updated 02/17/23 @ 10:09 by Josette Nguyen CMA) Mother Hypertension Alzheimer disease Father Hypertension Diabetes Daughter No problems noted. Daughter No problems noted. Son Autism Social History (Updated 02/17/23 @ 10:09 by Josette Nguyen CMA) Alcohol intake: current Patient Tobacco Use Status: Never used Tobacco Assessment & Plan Assessment & Plan (1) Morbid (severe) obesity due to excess calories: Code(s): E66.01 - Morbid (severe) obesity due to excess calories Plan Will be seen again to review online classes. she will call office when she has completed them. Telehealth Telehealth Location of provider rendering services: practice address Location of patient: address on file Patient Identification confirmed using: Name, : Yes Telehealth method: voice only Patient verbally consented to treatment: Yes Patient verbally consented to billing insurance company: Yes Patient informed of any privacy concerns related to visit: Yes Minutes spent on Phone/Video with Pt.: 30 Coding Level of Care Code Nutr Indiv Intake (13213) Diagnoses Morbid (severe) obesity due to excess calories E66.01 Time Spent (min) 25
== END 2023-04-08 09:22 | disposition home or self-care (01) ==
LOC: HO.HBS 09:15
PROVIDERS: PCP Physician Assistant; Visit Provider Dietitian, Registered
DX: E66.01 Morbid (severe) obesity due to excess calories (principal)

== ENCOUNTER → 2023-04-08 09:15 | Outpatient (BNVA) | payer MEDICAID, SELFPAY | PROVIDERS: PCP Physician Assistant; Visit Provider Dietitian, Registered | DX: E66.01 Morbid (severe) obesity due to excess calories (principal) | CPT/HCPCS: 97802 ==

== ENCOUNTER 2023-04-09 07:55 | Outpatient (AMB) | payer MEDICAID, SELFPAY ==
[2023-04-09 13:03] VITALS: BMI 53.5
--- NOTE | 2023-04-09 13:03 | A.OFFVIS_ITS ---
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* HPI Details Start time: 12.54pm, End time: 1.24pm ?I spent 25 minutes speaking with the patient on the phone plus an additional 5 minutes reviewing and updating records for a total of 30 minutes HPI Comments History of Present Illness Details Is doing 2 Isopure Infusions (1/2 scoop in water), 2 Zone Perfect protein bars and one meal (unclear about the portions) Exercise: [facility] Medical History (Updated 03/30/23 @ 18:01 by Angel Hull MD) GERD (gastroesophageal reflux disease) DJD (degenerative joint disease) Morbid obesity (~03/30/23) Surgical History (Updated 02/17/23 @ 10:07 by Josette Nguyen CMA) Hx of section Family History (Updated 02/17/23 @ 10:09 by Josette Nguyen CMA) Mother Hypertension Alzheimer disease Father Hypertension Diabetes Daughter No problems noted. Daughter No problems noted. Son Autism Social History (Updated 02/17/23 @ 10:09 by Josette Nguyen CMA) Alcohol intake: current Patient Tobacco Use Status: Never used Tobacco Assessment & Plan Assessment & Plan (1) Morbid obesity: Onset Date: ~03/30/23 Code(s): E66.01 - Morbid (severe) obesity due to excess calories Plan: 1. Start with 2 Isopure INFUSION protein shakes (buy at [facility]) shakes (HALF scoop EACH in 8oz water) at 6am-8am and 9am-11am, 2 protein bars (Zone Perfect protein bars, buy at [facility]) at 12pm-2pm and 3pm-5pm, dinner at 6pm (12 forks of protein and 12 forks of salad/vegetables) and one more protein bar after dinner at 8pm-10pm. So you do 2 protein shakes, 3 protein bars and one meal per day. Meal to include lean meat (beef, fish, pork, turkey, chicken), or mohawk yogurt, or egg whites, or beans with a salad with olive oil and fruits (berries, pears, apples, kiwi). Avoid salt, breads, potatoes, rice, pasta, desserts. 2. Take a picure of your meat after you measure it but before you eat it and send it to me daily. 3. Each shake would be drunk slowly, like coffee in a period of 2 hours. 4. Cut each bar in 4 pieces and eat each piece in 30min ?to make each bar last 2 hours. 5. I emphasized the importance of measuring accurately the food portion and measure it when serving the food in plate 6. The meal portions include 12 full-size forks of meat and 12 full-size forks of salad. You always eat the meat portion but you can replace up to 6 forks for salad/vegetables with rice, potatoes or pasta, or a fruit ?if you like. The less you do it the better weight loss will be. 7. One full-size fork is what it can be scooped on the fork without falling aside and not what can be bit with the fork. Use regular forks like those you find in a typical restaurant. 8.? Please send me weight measurements as soon as possible and then once a week. Always include your diet and exercise plan. 9. Start stationary bike at a resistance level of 4.0 Increase level by 1.0 every 3 min to a max level of 10.0. Stay at this level for 3 min and then return to level 4.0 and repeat same steps until 500 calories are burned, 4 days per week. Goal is to burn 2000 calories per week on exercise. Telehealth Telehealth Location of provider rendering services: practice address Location of patient: address on file Patient Identification confirmed using: Name, : Yes Telehealth method: voice only Patient verbally consented to treatment: Yes Patient verbally consented to billing insurance company: Yes Patient informed of any privacy concerns related to visit: Yes Minutes spent on Phone/Video with Pt.: 30 Coding Level of Care Code Tele Est Pt Level 4 (22224) Diagnoses Morbid obesity E66.01 Time Spent (min) 30
== END 2023-04-09 13:25 | disposition home or self-care (01) ==
LOC: HO.HBS 07:55
PROVIDERS: PCP Physician Assistant; Visit Provider Surgery
DX: E66.01 Morbid (severe) obesity due to excess calories (principal); Z68.43 Body mass index [BMI] 50.0-59.9, adult
CPT/HCPCS: 99214

== ENCOUNTER → 2023-04-09 07:55 | Outpatient (BNVA) | payer MEDICAID, SELFPAY | PROVIDERS: PCP Physician Assistant; Visit Provider Surgery ==

== ENCOUNTER 2023-04-09 15:39 | Outpatient (REF) | payer MEDICAID, SELFPAY ==
[2023-04-10 12:12] LABS: H Pylori Breath Test Negative (Negative)
== END 2023-04-09 15:40 | disposition home or self-care (01) ==
LOC: HO.LNP 15:39
PROVIDERS: Visit Provider Surgery
DX: E66.01 Morbid (severe) obesity due to excess calories (principal); K21.9 Gastro-esophageal reflux disease without esophagitis
CPT/HCPCS: 83013

== ENCOUNTER 2023-04-15 10:10 | Outpatient (REF) | payer MEDICAID, SELFPAY ==
--- NOTE | ~2023-04-15 | US_ITS ---
EXAMINATION: US COMPLETE ABDOMEN WITH LIVER ELASTOGRAPHY CLINICAL INFORMATION: Obesity. COMPARISON: None available. TECHNIQUE: Real-time imaging of the abdominal viscera. Noninvasive ultrasound liver fibrosis assessment is performed using Katty ElastPQ point quantification shear wave elastography (2D-SWE) with a C5-2 MHz transducer. Multiple elastography samples are obtained. FINDINGS: PANCREAS: Normal. The visualized pancreatic head and body are normal in appearance. The remainder of the pancreas is obscured from visualization by the overlying bowel gas. ABDOMINAL AORTA: The proximal, middle, and distal aortic segments are normal in caliber. INFERIOR VENA CAVA: Visualized portions are normal. LIVER: The liver demonstrates normal size, contour and increased echogenicity. No focal lesion or intrahepatic biliary duct dilatation. The right lobe measures 16.4 cm in length. The left lobe measures 7.5 cm in length. Portal flow is towards the liver (hepatopetal). Shear wave liver elastography median stiffness is 1.35 m/s (reference: normal median stiffness is 1.3 m/s or less). IQR/median stiffness to assess sampling precision is 0.13 (reference: good quality data set is IQR/median stiffness of 0.15 or less). GALLBLADDER: Normal. The gallbladder is physiologically distended without evidence of stones, sludge, polyps, wall thickening or pericholecystic fluid. COMMON BILE DUCT: Normal in caliber measuring 0.3 cm in diameter. RIGHT KIDNEY: Normal. No hydronephrosis. No renal calculi or focal parenchymal lesions. The kidney measures 11.3 cm in maximum dimension. LEFT KIDNEY: Normal. No hydronephrosis. No renal calculi or focal parenchymal lesions. The kidney measures 10.8 cm in maximum dimension. SPLEEN: Normal. The spleen measures 10.0 cm in maximum dimension. FREE FLUID: None. US/US abdomen comp w elastography IMPRESSION: 1. There is generalized increase in hepatic echotexture, consistent with fatty infiltration or hepatocellular disease. Please correlate clinically. No focal hepatic mass or intrahepatic biliary dilatation is seen. 2. Liver elastography: In the absence of other known clinical signs, measurements rule out compensated advanced chronic liver disease. If there are known clinical signs, further testing may be needed for confirmation. REFERENCE: Society of Radiologists in Ultrasound Liver Stiffness Thresholds (2020): LIVER STIFFNESS THRESHOLDS: *Liver Stiffness equal or less than 1.3 m/s: High probability of being normal. *Liver Stiffness less than 1.7 m/s: In the absence of other known clinical signs, rules out compensated advanced chronic liver disease. *Liver Stiffness 1.7-2.1 m/s: Suggestive of compensated advanced chronic liver disease but need further test for confirmation. *Liver Stiffness over 2.1 m/s: Rules in compensated advanced chronic liver disease. *Liver Stiffness over 2.4 m/s: Suggestive of clinically significant portal hypertension. QUALITY OF DATA SET: *IQR/Median value equal or less than 0.15 implies a quality data set. *IQR/Median value over 0.15 implies a poor quality data set. SIGNIFICANT CHANGE FROM PRIOR EXAM: Significant change if liver stiffness measurement is 10% or greater from prior exam. OTHER CONSIDERATIONS: The stage of liver fibrosis may be overestimated in the setting of acute hepatitis, liver inflammation, elevated liver function tests, hepatic vascular congestion, obstructive cholestasis, non-fasting state, and infiltrative diseases such as amyloidosis and lymphoma. In some patients with NAFLD, the liver stiffness thresholds for compensated advanced chronic liver disease may be lower. In causes other than viral hepatitis and NAFLD, liver stiffness thresholds are not well established.
== END 2023-04-15 10:11 | disposition home or self-care (01) ==
LOC: HO.US 10:10
PROVIDERS: PCP Physician Assistant; Visit Provider Surgery
DX: E66.01 Morbid (severe) obesity due to excess calories (principal); K21.9 Gastro-esophageal reflux disease without esophagitis
CPT/HCPCS: 76700; 76981

== ENCOUNTER 2023-04-28 10:34 | Outpatient (AMB) | payer OTHER, SELFPAY ==
--- NOTE | 2023-04-28 10:06 | MHC.WMTHER ---
Intake Intake Visit Reasons: VIDEO BH Intake Allergies No Known Allergies Allergy (Verified 03/22/23 13:16) FOR[facility] Medical History (Updated 03/30/23 @ 18:01 by Angel Hull MD) GERD (gastroesophageal reflux disease) DJD (degenerative joint disease) Morbid obesity (~03/30/23) Surgical History (Updated 02/17/23 @ 10:07 by Josette Nguyen CMA) Hx of section Family History (Updated 02/17/23 @ 10:09 by Josette Nguyen CMA) Mother Hypertension Alzheimer disease Father Hypertension Diabetes Daughter No problems noted. Daughter No problems noted. Son Autism Social History (Updated 02/17/23 @ 10:09 by Josette Nguyen CMA) Alcohol intake: current Patient Tobacco Use Status: Never used Tobacco Behavioral Health Assessment Weight Management Therapy Therapy Notes Details PT is a 43 year old, , [place]ese-Speaking female who presents for assessment as part of surgical weight-loss program. PT reports her interest in bariatric surgery due to obesity and desires to improve her life and health. PT denied any history of mental health treatment and or past hospitalization/crisis for behavioral health. Denies any safety concerns around SI and/or self-other harm, also there is no history of substance use reported. There is also no evidence for stress/emotional-eating, and scores from BES suggest minimal risk for binge eating behavior. PHQ- scores also showed no active symptoms/concerns with depression. Mental status exam is withing normal limits, suggesting person's functioning is not impaired. At this time patient is cleared from the behavioral health standpoint. Presenting Concerns Referral Source [facility] Provider. Pt sees dr. Verde Initially referred by her PCP. Reason for referral Completion of behavioral health assessment as part of process for weight-loss surgery. Precipitating Event Obesity. Living Situation Current Living Situation Rent At risk of losing current housing? No Satisfied with current living situation? Yes Comments Pt lives with 2 children and the family dog. Food/Weight/Diet Expectations of change The initial goal to lose 10% of her weight before surgery, which is about 28 lbs. Ultimate weight goal: 254lbs before surgery. Pt started the program in March and have lost 6 lbs. She wants to be at a healthy weight and feel better with her body. History/Relationship with food -PT states she was not used to having breakfast or consistent meals. Would have something around 1pm, mainly fast food like a pizza or burger. Then at 5:30 pm, she had a big meal. At night she was having cravings and increased hunger which led to snacks from dinnertime until bedtime. -PT reports she is doing well with her current meal plan, she feels satiated and is not snacking anymore. History/Relationship with weight 14 years ago she lost 100 lbs using teas. Then got and after the second started gaining weight again and with the normal day-to-day stressors losing weight was harder. In the past 5 years, her lowest weight was 220 Lbs, and highest weight 284 Lbs. History/Relationship with dieting In the past, she has tried teas, OTC pills. Never was consistent with exercise and healthy eating. -PT has been attending the gym 4 days a week while using a meal plan daily as instructed by the WMP- provider. Binge Eating Do you frequently eat large amounts of food in short periods of time, not feeling physically hungry? No Do you feel out of control when you eat a large amount of food in a short period of time? No Do you eat large amounts of food rapidly and typically alone? Yes Night Eating Do you wake up at least once during the night to eat? No If you wake up in the night, do you find that it is necessary to eat something in order to fall back asleep? No Do you have little or no appetite in the morning and feel very hungry in the evening, often overeating between dinner and when you go to bed? Yes Social History Family history and relationship PT is a single mother of 3. Oldest daughter is 22 and lives apart. She has 2 sisters, her father , mother alive. PT reported good family relationships. Parental/Familial gluer obligations 2 Children. 14 y/o girls and 11 y/o boy. Developmental history and status None reported. Social support Sister, friends. Community support PCP. Congregational/Spirituality None. Cultural/Ethnic information Cym[place]. Living in [place] since 2014. Mainly [place]-speaking. Legal Involvement and History Current or historical involvement with the legal system? None. Education Highest grade completed 11th Grade. Preferred learning style Auditory and Written Currently enrolled in educational program? No Interested in further educational program? Yes (Waiting to start ESL classess.) Educational Interests/Skills [place]ian classes, cooking. Employment Employment Status Unemployed (Since 2015) Wants help to find employment? No Meaningful activities Family activities, cleaning. Financial Situation Describe current financial situation Comfortable and Occasional struggle Financial assistance? Food [place] and SSI (for each kid.) Service Service? No Mental Health and Addiction Treatment Current/Past substance abuse? No Current/Past addictive behavior concerns? No Psychiatric history Never in any type of MH treatment. Denies any HX or cocnern with Sself-harm and/or other-harm. Medical and Physical Health Summary Additional Medical History not covered in history None reported Sexual History concerns None reported Physical exam in the last year? Yes Pain Screening Current pain? No Pain in the last few months? No Medications Is the patient compliant with medications? Not applicable Does the patient have Odom Guardian in place? Not applicable Does the patient use complimentary health approaches? No Trauma/Abuse History History of trauma? No Questionnaires PHQ-9 Over the last 2 weeks, how often have you been bothered by any of the following problems? 1. Little interest or pleasure in doing things: several days 2. Feeling down, depressed, or hopeless: several days 3. Trouble falling or staying asleep, or sleeping too much: not at all 4. Feeling tired or having little energy: several days 5. Poor appetite or overeating: several days 6. Feeling bad about yourself - or that you are a failure or have let yourself or your family down: not at all 7. Trouble concentrating on things, such as reading the newspaper or watching television: not at all 8. Moving or speaking so slowly that other people could have noticed. Or the opposite - being so fidgety or restless that you have been moving around a lot more than usual: not at all 9. Thoughts that you would be better off or of hurting yourself in some way: not at all Total score: 4 Depression Screening Interpretation: Negative Depression Screening Done: Yes 44583 - PHQ-9 Billing: Yes Source: Developed by Drs. Shamar Montes, Eileen Ibarra, David Whitney and colleagues, with an educational angel from [employer] Binge Eating Scale Group 1 A. I don't feel self-conscious about my wt. or body size when I'm with others. B. I feel concerned about how I look to others, but it normally does not make me fell disappointed with myself C. I do get self-conscious about my appearance and wt. which makes me feel disappointed in myself. D. I feel very self-conscious about my wt. and frequently I feel intense shame and disgust for myself. I try to avoid social contacts because of my self-consciousness. Response Group 1: B Group 2 A. I don't have any difficulty eating slowly in the proper manner. B. Although I seem to gobble down foods, I don't end up feeling stuffed because of eating to much. C. At times, I tend to eat quickly and then, I feel uncomfortably full afterwards. D. I have the habit of bolting down my food, without really chewing it. When this happens I usually feel uncomfortably stuffed because I've eaten to much. Response Group 2: A Group 3 A. I feel capable to control my eating urges when I want to. B. I feel like I have failed to control my eating more than the average person. C. I feel utterly helpless when it comes to feeling in control of my eating urges. D. Because I feel so helpless about controlling my eating I have become very desperate about trying to get control. Response Group 3: A Group 4 A. I don't have the habit of eating when I'm bored. B. I sometimes eat when I'm bored, but often I'm able to get busy and get my mind off food. C. I have a regular habit of eating when I'm bored, but occasionally, I can use some other activity to get my mind off eating. D. I have a strong habit of eating when I'm bored. Nothing seems to help me breath the habit. Response Group 4: A Group 5 A. I'm usually physically hungry when I eat something. B. Occasionally, I eat something on impulse even though I really am not hungry. C. I have the regular habit of eating foods, that I might not really enjoy, to satisfy a hungry feeling even though physically, I don't need the food. D. Although I'm not physically hungry, I get a hungry feeling in my mouth that only seems to be satisfied when I eat a food, like sandwich, that fills my mouth. Sometimes, when I eat the food to satisfy my mouth hunger, I then spit the food out so I won't gain weight. Response Group 5: A Group 6 A. I don't feel any guilt or self-hate after I overeat. B. After I overeat, occasionally I feel guilt or self-hate. C. Almost all the time I experience strong guilt or self-hate after I overeat. Response Group 6: B Group 7 A. I don't lose total control of my eating when dieting even after periods when I overeat. B. Sometimes when I eat a forbidden food on a diet, I feel like I blew it and eat even more. C. Frequently, I have the habit of saying to myself, I've blown it now, why not go all the way, when I overeat on a diet. When that happens I eat more. D. I have a regular habit of starting a strict diets for myself but I break the diets by going on an eating binge. My life seems to be either a feast or famine. Response Group 7: B Group 8 A. I rarely eat so much food that I feel uncomfortably stuffed afterwards. B. Usually about once a month, I each such a quantity of food, I end up feeling very stuffed. C. I have regular periods during the month when I eat large amounts of food, either at mealtime or at snacks. D. I eat so much food that I regularly feel quite uncomfortable after eating and sometimes a bit nauseous. Response Group 8: C Group 9 A. My level of calorie intake does not go up very high or go down very low on a regular basis. B. Sometimes after I overeat, I will try to reduce my caloric intake to almost nothing to compensate for the excess calories I've eaten. C. I have a regular habit of overeating during the night. It seems that my routine is not to be hungry in the morning but overeat in the evening. D. In my adult years, I have had week-long periods where I practically starve myself. This follows periods when I overeat. It seems I live a life of either feast or famine. Response Group 9: B Group 10 A. I usually am able to stop eating when I want to. I know when enough is enough. B. Every so often, I experience a compulsion to eat which I can't seem to control. C. Frequently, I experience strong urges to eat which I seem unable to control, but at other times I can control my eating urges. D. I feel incapable of controlling urges to eat. I have a fear of not being able to stop eating voluntarily. Response Group 10: A Group 11 A. I don't have any problem stopping eating when I feel full. B. I usually can stop eating when I feel full but occasionally overeat leaving me feeling uncomfortably stuffed. C. I have a problem stopping eating once I start and usually I feel uncomfortably stuffed after I eat a meal. D. Because I have a problem not being able to stop eating when I want, I sometimes have to induce vomiting to relieve my stuffed feeling. Response Group 11: B Group 12 A. I seem to eat just as much when I'm with others, Family social gatherings as when I'm by myself. B. Sometimes, when I'm with other persons, I don't eat as much as I want to eat because I'm self-conscious about my eating. C. Frequently, I eat only a small amount of food when others are present, because I'm very embarrassed about my eating. D. I feel so ashamed about overeating that I pick times to overeat when I know no one will see me. I feel like a closet eater. Response Group 12: A Group 13 A. I eat three meals a day with only an occasional between meal snack. B. I eat 3 meals a day, but I also normally snack between meals. C. When I am snacking heavily, I get in the habit of skipping regular meals. D. There are regular periods when I seem to be continually eating, with no planned meals. Response Group 13: D Group 14 A. I don't think much about trying to control unwanted eating urges. B. At least some of the time, I feel my thoughts are pre-occupied with trying to control my eating urges. C. I feel that frequently I spend much time thinking about how much I ate or about trying not to eat anymore. D. It seems to me that most of my waking hours are pre-occupied by thoughts about eating or not eating. I feel like I'm constantly struggling not to eat. Response Group 14: D Group 15 A. I don't think about food a great deal. B. I have strong craving for food but they last only for brief periods of time. C. I have days when I can't seem to think about anything else but food. D. Most of my days seem to be pre-occupied with thoughts about food. I feel like I live to eat. Response Group 15: B Group 16 A. I usually know whether or not I'm physically hungry. I take the right portion of food to satisfy me. B. Occasionally, I feel uncertain about knowing whether or not I'm physically hungry. A these times it's hard to know how much food I should take to satisfy me. C. Even though I might know how many calories I should eat, I don't have any idea what is a normal amount of food for me. Response Group 16: A Binge Eating Score: 14 Score less than 17 Minimal Risk Score between 18-26 Moderate Risk Score between 27-46 High Risk Assessment & Plan Assessment & Plan (1) Adjustment disorder: Code(s): F43.20 - Adjustment disorder, unspecified Qualifiers: Adjustment disorder type: unspecified type Qualified Code(s): F43.20 - Adjustment disorder, unspecified Plan: -Pt has been cleared from BH standpoint. -We will follow up 4-6 weeks post-op. -She has been advised of available resources in the program and to maintain communication with office as needed. Telehealth Telehealth Location of provider rendering services: other Location of patient: address on file Patient Identification confirmed using: Name, : Yes Telehealth method: voice only Patient verbally consented to treatment: Yes Patient verbally consented to billing insurance company: Yes Patient informed of any privacy concerns related to visit: No Minutes spent on Phone/Video with Pt.: 60 Coding Level of Care Code New Pt Tele Psy Diag Amy ([id number]) Patient Type New Diagnoses Adjustment disorder, unspecified type F43.20 Adjustment disorder type: unspecified type Time Spent (min) 60
== END 2023-04-28 11:00 | disposition home or self-care (01) ==
LOC: HO.HBST 10:35
PROVIDERS: PCP Physician Assistant; Visit Provider Counselor Mental Health
DX: F43.20 Adjustment disorder, unspecified (principal)
CPT/HCPCS: 90837

== ENCOUNTER → 2023-04-28 10:34 | Outpatient (BNVA) | payer MEDICAID, SELFPAY | PROVIDERS: PCP Physician Assistant; Visit Provider Counselor Mental Health ==

== ENCOUNTER 2023-05-03 08:34 | Outpatient (AMB) | payer MEDICAID, SELFPAY ==
--- NOTE | 2023-05-02 16:29 | A.OFFVIS_ITS ---
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 ?I spent 15 minutes speaking with the patient on the phone plus an additional 15 minutes reviewing and updating records for a total of 30 minutes HPI Comments History of Present Illness Details Overall weight loss: 5.8lbs, or 2.05% TBWL Is doing 2 Isopure Infusions (1/2 scoop in water), 2 Zone Perfect protein bars and one meal (12 forks of protein and 12 forks of salad or vegetables) Exercise: stationary bike 4 days per week for 100-150 calories [facility] Medical History (Updated 03/30/23 @ 18:01 by Angel Hull MD) GERD (gastroesophageal reflux disease) DJD (degenerative joint disease) Morbid obesity (~03/30/23) Surgical History (Updated 02/17/23 @ 10:07 by Josette Nguyen CMA) Hx of section Family History (Updated 02/17/23 @ 10:09 by Josette Nguyen CMA) Mother Hypertension Alzheimer disease Father Hypertension Diabetes Daughter No problems noted. Daughter No problems noted. Son Autism Social History (Updated 02/17/23 @ 10:09 by Josette Nguyen CMA) Alcohol intake: current Patient Tobacco Use Status: Never used Tobacco Physical Exam Vital Signs: BMI result Body Mass Index 52.2 Assessment & Plan Assessment & Plan (1) Morbid obesity: Onset Date: ~03/30/23 Code(s): E66.01 - Morbid (severe) obesity due to excess calories Plan: 1. Continue same nutritional plan of 2 Isopure Infusions (1/2 scoop in water), 2 Zone Perfect protein bars and one meal (12 forks of protein and 12 forks of salad or vegetables) 2. Exercise: continue stationary bike but increase calories per week. Goal is to burn 2000 calories per week on exercise, which means either 300 calories daily, or 400 calories 5 days per week, or 500 calories 4 days per week, or 650 calories 3 days per week. 3. 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
[2023-05-02 16:32] VITALS: BMI 52.2
== END 2023-05-03 11:30 | disposition home or self-care (01) ==
LOC: HO.HBS 08:34
PROVIDERS: PCP Physician Assistant; Visit Provider Surgery
DX: E66.01 Morbid (severe) obesity due to excess calories (principal); Z68.43 Body mass index [BMI] 50.0-59.9, adult
CPT/HCPCS: 99214

== ENCOUNTER → 2023-05-03 08:34 | Outpatient (BNVA) | payer OTHER, SELFPAY | PROVIDERS: PCP Physician Assistant; Visit Provider Surgery | DX: E66.01 Morbid (severe) obesity due to excess calories (principal) ==

== ENCOUNTER 2023-05-13 08:43 | Outpatient (REF) | payer MEDICAID, SELFPAY ==
--- NOTE | ~2023-05-13 | CT_ITS ---
EXAMINATION: CT CHEST WITHOUT AND WITH CONTRAST CLINICAL INFORMATION: Other nonspecific abnormal finding of lung field. COMPARISON: Chest radiograph 03/26/2023. TECHNIQUE: Multidetector volumetric CT imaging of the chest was obtained before and after the administration of 65 mL of Omnipaque 350 intravenous contrast without immediate adverse reactions. Axial MIP volume rendering provided. Sagittal and coronal reformatted images were obtained. This CT examination was performed using dose optimization techniques as appropriate, variously including the following: *Automated exposure control *Adjustment of mA and/or kV according to patient size (this includes techniques or standardized protocols for targeted exams where dose is matched to indication/reason for exam; i.e. extremities or head) *Use of iterative reconstruction technique DLP: 420 mGy-cm FINDINGS: LUNGS AND PLEURA: There is a smooth pleural-based mass in the right upper lobe measuring 6.0 x 3.3 x 3.5 cm which measures fat density with no soft tissue component or calcifications. Findings are consistent with a pleural lipoma. There is one additional lung nodule present which measures 4 mm in the right upper lobe (10:187) MEDIASTINUM: The mediastinum is normal. CORONARY ARTERY CALCIFICATION: None visualized on this study. PLEURA: There is no pleural effusion. No pleural mass or thickening. AXILLA: No lymphadenopathy. UPPER ABDOMEN: Unremarkable. OSSEOUS STRUCTURES: Unremarkable. CT/CT chest wo/w IV con IMPRESSION: 1. The pleural-based mass in the right upper lobe is a benign pleural lipoma. 2. There is one additional 4 mm lung nodule present. According to the UPDATED 2017 Fleischner Society recommendations, the advised follow-up imaging for nodules <6mm in the upper lobes is not necessarily required in low-risk patients. In high-risk patients with a nodule in the upper lobe and/or demonstrating suspicious morphology, an optional CT follow-up at 12 months may be obtained. If stable at 12 months, no further follow-up is recommended.
[2023-05-13] MEDS: iohexoL 350 MG/ML 100 ML INFUS..BTL 65 ML IV (09:23)
== END 2023-05-13 08:44 | disposition home or self-care (01) ==
LOC: HO.CT 08:43
PROVIDERS: Visit Provider Surgery
DX: R91.8 Other nonspecific abnormal finding of lung field (principal)
CPT/HCPCS: 71270; Q9967

== ENCOUNTER 2023-05-17 10:12 | Outpatient (AMB) | payer MEDICAID, SELFPAY ==
--- NOTE | 2023-05-17 10:10 | MHC.AMNUTRGE ---
Intake Intake Visit Reasons: TV F/U SWL Iron Installer Required: Yes Iron Installer Name: [id number] Information Interpreted: non-clinical & clinical Allergies No Known Allergies Allergy (Verified 03/22/23 13:16) HPI Nutrition Presentation Reason for consult elevated BMI Diet Assmnt Details Pt reports she has been following surgeons plan meal - chicken adn salad or chicken and broccoli SWL online classes: completed, reviewed macros and she was able to accurately verbalize sources. reviewed post op nutrition as well Dietary counseling reduction Diagnosis Nutrition problem #1 overweight/obesity As related to (etiology) #1 excess energy intake and unwilling to learn/apply As evidenced by (sign/symptom) #1 high BMI Monitoring/Goals Nutrition problem monitoring total energy intake, level of knowledge/skill, total PRO intake, total CHO intake and weight Learning/Education Readiness to learn fair Most Recent Diabetes Results: No Data to Display [facility] Medical History (Updated 03/30/23 @ 18:01 by Angel Hull MD) GERD (gastroesophageal reflux disease) DJD (degenerative joint disease) Morbid obesity (~03/30/23) Surgical History (Updated 02/17/23 @ 10:07 by Josette Nguyen CMA) Hx of section Family History (Updated 02/17/23 @ 10:09 by Josette Nguyen CMA) Mother Hypertension Alzheimer disease Father Hypertension Diabetes Daughter No problems noted. Daughter No problems noted. Son Autism Social History (Updated 02/17/23 @ 10:09 by Josette Nguyen CMA) Alcohol intake: current Patient Tobacco Use Status: Never used Tobacco Assessment & Plan Assessment & Plan (1) Morbid obesity: Onset Date: ~03/30/23 Code(s): E66.01 - Morbid (severe) obesity due to excess calories Plan Patient is cleared from a nutrition standpoint for bariatric surgery. Educational requirements have been completed. Reviewed vitamin supplementation and commitment to protein shake for several months post surgery. Encouraged communication with office as needed Telehealth Telehealth Location of provider rendering services: practice address Location of patient: address on file Patient Identification confirmed using: Name, : Yes Telehealth method: voice only Patient verbally consented to treatment: Yes Patient verbally consented to billing insurance company: Yes Patient informed of any privacy concerns related to visit: Yes Minutes spent on Phone/Video with Pt.: 25 Coding Level of Care Code Nutr Indiv Subseq (44303) Diagnoses Morbid obesity E66.01 Time Spent (min) 25
== END 2023-05-17 10:31 | disposition home or self-care (01) ==
LOC: HO.HBS 10:12
PROVIDERS: PCP Physician Assistant; Visit Provider Dietitian, Registered
DX: E66.01 Morbid (severe) obesity due to excess calories (principal)

== ENCOUNTER → 2023-05-17 10:12 | Outpatient (BNVA) | payer MEDICAID, SELFPAY | PROVIDERS: PCP Physician Assistant; Visit Provider Dietitian, Registered | DX: E66.01 Morbid (severe) obesity due to excess calories (principal); Z68.43 Body mass index [BMI] 50.0-59.9, adult | CPT/HCPCS: 97803 ==

== ENCOUNTER 2023-05-19 09:34 | Outpatient (REF) | payer MEDICAID, SELFPAY ==
--- NOTE | ~2023-05-19 | FL_ITS ---
EXAMINATION: XR FLUOROSCOPY UPPER GI WITH AIR CLINICAL INFORMATION: Preop evaluation prior to bariatric surgery COMPARISON: None TECHNIQUE: Fluoroscopic air contrast upper GI examination was performed utilizing standard techniques with thin and thick barium and effervescent granules. Numerous spot images were obtained. FINDINGS: Dual and single contrast images of the esophagus demonstrate normal caliber, contour, and mucosal pattern. No evidence of stricture, mass, or ulcerations identified. Esophageal peristalsis is mildly disorganized. Small type I hiatus hernia present. Significant gastroesophageal reflux up to the thoracic inlet. Dual contrast and single contrast images of the stomach demonstrated normal contour and mucosal pattern without evidence of mass, ulceration, or other abnormality. Contrast freely passed into the gastric antrum and duodenal bulb without delay. Single and air-contrast images of the duodenal bulb demonstrate no abnormality. The duodenal sweep has a normal appearance, course, and mucosal fold appearance. No malrotation. The imaged proximal jejunum has a normal fold pattern and caliber. FLUOROSCOPY TIME: 4 minutes 4 seconds Number of Spot Images: 16 Number of Cine: 9 DOSE AREA PRODUCT: 3614 uGy-m2 (microgray-meter squared) FL/FL upper GI w air IMPRESSION: 1. Mildly disorganized esophageal peristalsis. 2. Severe gastroesophageal reflux. 3. Small type I hiatus hernia. This procedure was performed by Andry Looney PA-C, and supervised by Dr. Smith
== END 2023-05-19 09:35 | disposition home or self-care (01) ==
LOC: HO.XRAY 09:34
PROVIDERS: PCP Physician Assistant; Visit Provider Surgery
DX: E66.01 Morbid (severe) obesity due to excess calories (principal); K21.9 Gastro-esophageal reflux disease without esophagitis
CPT/HCPCS: 74246

== ENCOUNTER → 2023-05-19 09:35 | Outpatient (BNV) | payer MEDICAID, SELFPAY | PROVIDERS: PCP Physician Assistant; Visit Provider Physician Assistant Surgical | DX: Z01.818 Encounter for other preprocedural examination (principal); E66.01 Morbid (severe) obesity due to excess calories | CPT/HCPCS: 74246 ==

== ENCOUNTER 2023-05-28 07:37 | Outpatient (AMB) | payer MEDICAID, SELFPAY ==
--- NOTE | 2023-05-28 10:23 | A.OFFVIS_ITS ---
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* Allergies No Known Allergies Allergy (Verified 03/22/23 13:16) HPI TV Follow Up SWL *TYPE BAR AND SEGMENT ASSEMBLER* HPI Details Start time: 10.22am, End time: 10.48am ?I spent 21 minutes speaking with the patient on the phone plus an additional 5 minutes reviewing and updating records for a total of 26 minutes HPI Comments History of Present Illness Details Overall weight loss: 11.4lbs, or 4.04% TBWL Is doing 2 Isopure protein shakes (1/2 scoop in 8oz water), 2 Zone Perfect protein bars and one meal (12 forks of meat and 12 forks of salad or vegetables) Exercise: is doing the stationary bike 300-600 calories per day measured by a smartwatch [facility] Medical History (Updated 03/30/23 @ 18:01 by Angel Hull MD) GERD (gastroesophageal reflux disease) DJD (degenerative joint disease) Morbid obesity (~03/30/23) Surgical History (Updated 02/17/23 @ 10:07 by Josette Nguyen CMA) Hx of section Family History (Updated 02/17/23 @ 10:09 by Josette Nguyen CMA) Mother Hypertension Alzheimer disease Father Hypertension Diabetes Daughter No problems noted. Daughter No problems noted. Son Autism Social History (Updated 02/17/23 @ 10:09 by Josette Nguyen CMA) Alcohol intake: current Patient Tobacco Use Status: Never used Tobacco Physical Exam Vital Signs: BMI result Body Mass Index 51.2 Assessment & Plan Assessment & Plan (1) Morbid obesity: Onset Date: ~03/30/23 Code(s): E66.01 - Morbid (severe) obesity due to excess calories Plan: 1. Continue same nutritional plan of e protein shakes (1/2 scoop in 8oz water), 2 Zone Perfect protein bars and one meal (12 forks of meat and 12 forks of salad or vegetables). If you feel hungry after dinner, you may do another protein bar per your plan. 2. Exercise: continue the stationary bike 300-600 calories per day, daily. Please track the calories from the bike and not your smartwatch 3. Continue to send me weight measurements weekly on Fridays Telehealth Telehealth Location of provider rendering services: practice address Location of patient: address on file Patient Identification confirmed using: Name, : Yes Telehealth method: voice only Patient verbally consented to treatment: Yes Patient verbally consented to billing insurance company: Yes Patient informed of any privacy concerns related to visit: Yes Minutes spent on Phone/Video with Pt.: 26 Coding Level of Care Code Tele Est Pt Level 3 (56181) Diagnoses Morbid obesity E66.01 Time Spent (min) 26 Comment With a Kittitian speaking corporate paralegal
[2023-05-28 10:25] VITALS: BMI 51.2
== END 2023-05-28 10:49 | disposition home or self-care (01) ==
LOC: HO.HBS 07:37
PROVIDERS: PCP Physician Assistant; Visit Provider Surgery
DX: E66.01 Morbid (severe) obesity due to excess calories (principal); Z68.43 Body mass index [BMI] 50.0-59.9, adult
CPT/HCPCS: 99213

== ENCOUNTER → 2023-05-28 07:37 | Outpatient (BNVA) | payer MEDICAID, SELFPAY | PROVIDERS: PCP Physician Assistant; Visit Provider Surgery ==

== ENCOUNTER 2023-06-18 08:05 | Outpatient (AMB) | payer MEDICAID, SELFPAY ==
--- NOTE | 2023-06-18 13:33 | MHC.OFFVISWM ---
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 Is doing 2 Isopure Infusions (1 scoop each in 8oz water), 3 Zone Perfect protein bars and one meal (12 forks of protein and 12 forks of salad or vegetables) Exercise: stationary bike. Had to stop for two weeks as she had an ankle injury [facility] Medical History (Updated 03/30/23 @ 18:01 by Angel Hull MD) GERD (gastroesophageal reflux disease) DJD (degenerative joint disease) Morbid obesity (~03/30/23) Surgical History (Updated 02/17/23 @ 10:07 by Josette Nguyen CMA) Hx of section Family History (Updated 02/17/23 @ 10:09 by Josette Nguyen CMA) Mother Hypertension Alzheimer disease Father Hypertension Diabetes Daughter No problems noted. Daughter No problems noted. Son Autism Social History (Updated 02/17/23 @ 10:09 by Josette Nguyen CMA) Alcohol intake: current Patient Tobacco Use Status: Never used Tobacco Telehealth Telehealth Location of provider rendering services: practice address Location of patient: address on file Patient Identification confirmed using: Name, : Yes Telehealth method: voice only Patient verbally consented to treatment: Yes Patient verbally consented to billing insurance company: Yes Patient informed of any privacy concerns related to visit: Yes Minutes spent on Phone/Video with Pt.: 20 Assessment & Plan Assessment & Plan (1) Morbid obesity: Onset Date: ~03/30/23 Code(s): E66.01 - Morbid (severe) obesity due to excess calories Category: Medical Plan: 1. Continue same nutritional plan of 2 Isopure Infusions (HALF scoop each in 8oz water), 3 Zone Perfect protein bars and one meal (12 forks of protein and 12 forks of salad or vegetables). 2. If shakes are too watery, she can reduce the amount of water she uses but not to increase the scoop portions 3. Continue the stationary bike for 300-600 calories per day daily 4. Continue to send me weight measurements weekly on Fridays
[2023-06-18 13:36] VITALS: BMI 50.5
== END 2023-06-18 13:52 | disposition home or self-care (01) ==
LOC: HO.HBS 08:05
PROVIDERS: PCP Physician Assistant; Visit Provider Surgery
DX: E66.01 Morbid (severe) obesity due to excess calories (principal); Z68.43 Body mass index [BMI] 50.0-59.9, adult
CPT/HCPCS: 99213

== ENCOUNTER → 2023-06-18 08:05 | Outpatient (BNVA) | payer MEDICAID, SELFPAY | PROVIDERS: PCP Physician Assistant; Visit Provider Surgery ==

== ENCOUNTER 2023-07-16 09:19 | Outpatient (AMB) | payer MEDICAID, SELFPAY ==
[2023-07-16 12:03] VITALS: BMI 49.5
--- NOTE | 2023-07-16 12:03 | A.OFFVIS_ITS ---
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* Allergies No Known Allergies Allergy (Verified 03/22/23 13:16) HPI HPI TV Follow Up SWL *RECREATION PROGRAM COORDINATOR*: Details: Start time: 11.58am, End time: 12.18pm ?I spent 15 minutes speaking with the patient on the phone plus an additional 5 minutes reviewing and updating records for a total of 20 minutes HPI Comments Details: Overall weight loss: 20lbs, or 7.08% TBWL Is doing the Isopure Infusions protein shakes (1/2 scoop in 8oz water), 2 Zone Perfect protein bars and one meal (12 forks of protein and 12 forks of salad or vegetables) Exercise: Walking outside, or stationary bike for 300 calories PFSH Medical History (Updated 03/30/23 @ 18:01 by Angel Hull MD) GERD (gastroesophageal reflux disease) DJD (degenerative joint disease) Morbid obesity (~03/30/23) Surgical History (Updated 02/17/23 @ 10:07 by Josette Nguyen CMA) Hx of section Family History (Updated 02/17/23 @ 10:09 by Josette Nguyen CMA) Mother Hypertension Alzheimer disease Father Hypertension Diabetes Daughter No problems noted. Daughter No problems noted. Son Autism Social History (Updated 02/17/23 @ 10:09 by Josette Nguyen CMA) Alcohol intake: current Patient Tobacco Use Status: Never used Tobacco Telehealth Telehealth Telehealth Platform: Telephone Location of provider rendering services: practice address Location of patient: address on file Patient Identification confirmed using: Name, : Yes Telehealth method: voice only Patient verbally consented to treatment: Yes Patient verbally consented to billing insurance company: Yes Patient informed of any privacy concerns related to visit: Yes Minutes spent on Phone/Video with Pt.: 20 Assessment & Plan Assessment & Plan (1) Morbid obesity: Onset Date: ~03/30/23 Code(s): E66.01 - Morbid (severe) obesity due to excess calories Category: Medical Plan: 1. Plan for lap sleeve gastrectomy including upper GI endoscopy. All tests has been completed and reviewed and the patient is cleared for the surgery. ?If diaphragmatic or ventral hernias are present at time of surgery, these will be repaired laparoscopically as well. Risks and complications were discussed in detail including possible conversion to an open procedure, anastomotic leak, bleeding requiring transfusion, small bowel obstruction, , DVT and pulmonary embolism, cardiac, or pulmonary complications, as half-way complications such as anastomotic ulcer, insufficient weight loss and vitamin deficiencies. I emphasized the importance of close follow-up, adherence to instructions and good communication. So far she has proven to be an excellent communicator and very compliant with all our directions accomplishing a great weight loss. I believe that she is an excellent candidate and she is ready. [facility]: 2. The patient participated in a structured preoperative lifestyle intervention program supervised by a physician the 4 months preceding the surgical procedure. The lifestyle intervention included a structured nutritional plan with a specific daily protein intake goal, an exercise plan with a 2000 calorie burn weekly goal, weekly behavior modification guidance and completion of eight 1- hour online nutritional classes and passing successfully the corresponding quizzes. Adherence to preoperative care plan was demonstrated by completing an extensive preoperative work-up. Program participation was demonstrated by completing 7 visits with our medical team and by sharing weekly weight measurements weekly for 4 consecutive months via an approved body composition scale. Compliance to the lifestyle intervention was demonstrated by achieving a 20lbs weight-loss or 7.1% total body weight loss (TBWL). No medications were used to achieve this weight loss. In our published experience an over 7% preoperative TBWL, achieved by meeting the diet and exercise goals of our program improves surgical outcomes, reduces the potential for surgical complications, and predicts a statistically significant higher weight loss up to 6 years postoperatively. 3. Continue same nutritional plan of two Isopure Infusions protein shakes (1/2 scoop in 8oz water), 2 Zone Perfect protein bars and one meal (12 forks of protein and 12 forks of salad or vegetables) 4. Exercise: Continue stationary bike daily for 300 calories 5. Continue to send me weight measurements weekly on Fridays
== END 2023-07-16 12:18 | disposition home or self-care (01) ==
LOC: HO.HBS 09:19
PROVIDERS: PCP Physician Assistant; Referring Provider Physician Assistant; Visit Provider Surgery
DX: E66.01 Morbid (severe) obesity due to excess calories (principal); Z68.42 Body mass index [BMI] 45.0-49.9, adult
CPT/HCPCS: 99213

== ENCOUNTER → 2023-07-16 09:19 | Outpatient (BNVA) | payer MEDICAID, SELFPAY | PROVIDERS: PCP Physician Assistant; Visit Provider Surgery ==

== ENCOUNTER 2023-08-16 08:12 | Outpatient (AMB) | payer MEDICAID, SELFPAY ==
--- NOTE | 2023-08-15 09:17 | A.OFFVIS_ITS ---
VS Expanded 08/15/23 09:18 Height 5 ft 1 in Weight 256 lb 4 oz BMI 48.4 Body Fat % 52.6 Body Fat Mass 134.8 Fat Free Mass 121.6 Visceral Fat Rating 21 Body Water % 32.5 Body Water Mass 83.3 Basal Metabolic Rate/Score 1,543 Intake Visit Reasons: TV Pre Op LSG 08/26/23 Allergies No Known Allergies Allergy (Verified 08/15/23 09:21) Medication List - Last Reconciled 08/15/23 by Angel Hull MD cholecalciferol (vitamin D3) 125 mcg PO DAILY ibuprofen 600 mg PO Q8H PRN iron,carbonyl-vitamin C 65 mg iron- 125 mg (Vitron-C) 1 tab PO DAILY mecobalamin (vitamin B12) 1,000 mcg sublingual DAILY ondansetron 4 mg PO Q12H pantoprazole 40 mg PO DAILY polyethylene glycol 3350 17 grams PO DAILY sucralfate 10 mL PO BID vitamin A palmitate 10,000 units PO DAILY HPI HPI TV Pre Op LSG 08/26/23: Details: Start time: 2.30p, End time: 3pm ?I spent 25 minutes speaking with the patient on the phone plus an additional 5 minutes reviewing and updating records for a total of 30 minutes HPI Comments Details: Overall weight loss: 26lbs, or 9.21% TBWL Is doing 2 Isopure infusions (1/2 scoop each in 8oz water), 2 Zone Perfect protein bars and one meal (12 forks of protein and 12 forks of salad or vegetables) Exercise: stationary bike or outside walking PFSH Medical History (Updated 03/30/23 @ 18:01 by Angel Hull MD) GERD (gastroesophageal reflux disease) DJD (degenerative joint disease) Morbid obesity (~03/30/23) Surgical History (Updated 02/17/23 @ 10:07 by Josette Nguyen CMA) Hx of section Family History (Updated 02/17/23 @ 10:09 by Josette Nguyen CMA) Mother Hypertension Alzheimer disease Father Hypertension Diabetes Daughter No problems noted. Daughter No problems noted. Son Autism Social History (Updated 02/17/23 @ 10:09 by Josette Nguyen CMA) Alcohol intake: current Patient Tobacco Use Status: Never used Tobacco Physical Exam Vital Signs: BMI result Body Mass Index 48.4 Telehealth Telehealth Telehealth Platform: Telephone Location of provider rendering services: practice address Location of patient: address on file Patient Identification confirmed using: Name, : Yes Telehealth method: voice only Patient verbally consented to treatment: Yes Patient verbally consented to billing insurance company: Yes Patient informed of any privacy concerns related to visit: Yes Minutes spent on Phone/Video with Pt.: 30 Assessment & Plan Assessment & Plan (1) Morbid obesity: Onset Date: ~03/30/23 Code(s): E66.01 - Morbid (severe) obesity due to excess calories Category: Medical Plan: 1. Plan for lap sleeve gastrectomy including upper GI endoscopy. All tests has been completed and reviewed and the patient is cleared for the surgery. ?If diaphragmatic or ventral hernias are present at time of surgery, these will be repaired laparoscopically as well. 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 I emphasized the importance of close follow-up, adherence to instructions and good communication. So far she has proven to be an excellent communicator and very compliant with all our directions accomplishing a great weight loss. I believe that she is an excellent candidate and she is ready. 2. Preop prescriptions were provided and explained the purpose of each one. Need to be purchased preop. Start Pantoprazole now as you get it from the pharmacy, 1 pill per day. Sucralfate and Zofran are for after surgery as needed. 3. Bowel prep: please do 7 packets ?of Miralax mixing each one with a an 8oz glass of water, crystal light, gatorade zero, or propel ?on 08/24/23 and the same amount on 08/25/23. The Miralax you begin with one packet at a time in 8oz water or crystal light, gatorade zero, or propel ?as early in the day as you can and you do them back to back until you finish them. Continue the protein shakes during? the bowel prep. 4. Needs to purchase 1oz medicine cups . 5. Needs to purchase Children's liquid Tylenol for postop pain control. 6. She needs to stop the Ibuprofen as of today 08/15/23. Avoid aspirin, motrin, Advil, Aleve, Ibuprofen, Naproxyn. Tylenol is OK. 7. She needs to purchase the Celebrate 4:1 protein shakes from the hospital's gift shop. 8. Will do basic preop blood work-up any day between Wednesday08/16/23 and Wednesday08/20/23 fasting for 12 hours and is scheduled to see the Anesthesiologist prior to the day of surgery. 9. Importance of adherence to postop folllow-up and recommendations was underscored and she understands that. 10. Stop food and bars as of tomorrow 08/16/23 and continue with 4 Isopure INFUSIONS protein shakes (HALF scoop EACH in 8oz water) at 6am-8am, 9am-11am, 12pm-2pm and 3pm-5pm AND TWO more Isopure INFUSIONS protein shakes with ONE scoop EACH in 8oz of water at 6pm-8pm and 9pm-11pm 11. No soups, broths or V8 12. The patient's?medical?history has been reviewed and they are considered low risk for post op DVT and therefore DVT prophylaxis is not considered necessary. Travel after surgery was reviewed. The patient has not disclosed any travel plans during the first 30 days after surgery and they have been advised that within the first 30 days after surgery any bus, plane, train or car travel over 2 hours in duration is contraindicated due to the possibility of developing blood clots from immobility. Any travel, needs to include periods of ambulation of 10 minutes in duration every 2 hours.? Patient was instructed to discuss any plans for travel during this period with their bariatric surgeon.? 13. Please take at the day of surgery the following medications: NONE 14. Stop any control pills and don't use them for one month after surgery 15. Absolutely no smoking or vaping, or marijuana until the surgery and for at least the first 4 weeks. Only nicotine patches are allowed. 16. Send me weight measurements on Wednesday08/20/23 and then on 08/26/23, the day of surgery before you go to the hospital. 17. Avoid any steroids by mouth for any reason. Let me know if someone prescribes them to you 18. These instructions supersede anything else you read in the handbook, anything you watched in videos or classes or you were told by any other provider. If there is any conflict, you follow the above instructions and nothing else. Orders: Orders TSH reflex Free T4 08/15/23 E53.8 - Deficiency of other specified B group vitamins, E55.9 - Vitamin D deficiency, unspecified, E61.1 - Iron deficiency, E66.01 - Morbid (severe) obesity due to excess calories Type and Screen 08/15/23 E53.8 - Deficiency of other specified B group vitamins, E55.9 - Vitamin D deficiency, unspecified, E61.1 - Iron deficiency, E66.01 - Morbid (severe) obesity due to excess calories Partial Thromboplastin Time 08/15/23 E53.8 - Deficiency of other specified B group vitamins, E55.9 - Vitamin D deficiency, unspecified, E61.1 - Iron deficiency, E66.01 - Morbid (severe) obesity due to excess calories Lipid Panel 08/15/23 E53.8 - Deficiency of other specified B group vitamins, E55.9 - Vitamin D deficiency, unspecified, E61.1 - Iron deficiency, E66.01 - Morbid (severe) obesity due to excess calories Hemoglobin A1c 08/15/23 E53.8 - Deficiency of other specified B group vitamins, E55.9 - Vitamin D deficiency, unspecified, E61.1 - Iron deficiency, E66.01 - Morbid (severe) obesity due to excess calories Complete Blood Count Auto Diff 08/15/23 E53.8 - Deficiency of other specified B group vitamins, E55.9 - Vitamin D deficiency, unspecified, E61.1 - Iron deficiency, E66.01 - Morbid (severe) obesity due to excess calories Ferritin 08/15/23 E53.8 - Deficiency of other specified B group vitamins, E55.9 - Vitamin D deficiency, unspecified, E61.1 - Iron deficiency, E66.01 - Morbid (severe) obesity due to excess calories IRON PROFILE 08/15/23 E53.8 - Deficiency of other specified B group vitamins, E55.9 - Vitamin D deficiency, unspecified, E61.1 - Iron deficiency, E66.01 - Morbid (severe) obesity due to excess calories Vitamin D 25-OH Total 08/15/23 E53.8 - Deficiency of other specified B group vitamins, E55.9 - Vitamin D deficiency, unspecified, E61.1 - Iron deficiency, E66.01 - Morbid (severe) obesity due to excess calories Vitamin B12 08/15/23 E53.8 - Deficiency of other specified B group vitamins, E55.9 - Vitamin D deficiency, unspecified, E61.1 - Iron deficiency, E66.01 - Morbid (severe) obesity due to excess calories Vitamin A 08/15/23 E53.8 - Deficiency of other specified B group vitamins, E55.9 - Vitamin D deficiency, unspecified, E61.1 - Iron deficiency, E66.01 - Morbid (severe) obesity due to excess calories Comprehensive Met. Panel 08/15/23 E53.8 - Deficiency of other specified B group vitamins, E55.9 - Vitamin D deficiency, unspecified, E61.1 - Iron deficiency, E66.01 - Morbid (severe) obesity due to excess calories Prothrombin Time INR 08/15/23 E53.8 - Deficiency of other specified B group vitamins, E55.9 - Vitamin D deficiency, unspecified, E61.1 - Iron deficiency, E66.01 - Morbid (severe) obesity due to excess calories C Reactive Protein 08/15/23 E53.8 - Deficiency of other specified B group vitamins, E55.9 - Vitamin D deficiency, unspecified, E61.1 - Iron deficiency, E66.01 - Morbid (severe) obesity due to excess calories Insulin 08/15/23 E53.8 - Deficiency of other specified B group vitamins, E55.9 - Vitamin D deficiency, unspecified, E61.1 - Iron deficiency, E66.01 - Morbid (severe) obesity due to excess calories Medications: New pantoprazole 40 mg PO DAILY 90 tabs 0RF K21.9 - Gastro-esophageal reflux disease without esophagitis sucralfate 10 mL PO BID 600 mL 2RF K21.9 - Gastro-esophageal reflux disease without esophagitis ondansetron Only take one every 12 hours as needed if you have nausea 4 mg PO Q12H 20 tabs 0RF nausea and vomiting R11.0 - Nausea polyethylene glycol 3350 Mix each measuring cup with 8oz of water, Crystal light, or Gatorade zero, or Propel and do 7 measuring cups on 08/24/23 and another 7 measuring cups on 08/25/23 17 grams PO DAILY 238 grams 0RF Z01.818 - Encounter for other preprocedural examination
[2023-08-15 09:18] VITALS: BMI 48.4
== END 2023-08-16 17:00 | disposition home or self-care (01) ==
LOC: HO.HBS 08:12
PROVIDERS: PCP Physician Assistant; Visit Provider Surgery
DX: E66.01 Morbid (severe) obesity due to excess calories (principal); Z68.42 Body mass index [BMI] 45.0-49.9, adult
CPT/HCPCS: 99499

== ENCOUNTER → 2023-08-16 08:12 | Outpatient (BNVA) | payer MEDICAID, SELFPAY | PROVIDERS: PCP Physician Assistant; Visit Provider Surgery | DX: E66.01 Morbid (severe) obesity due to excess calories (principal); E61.1 Iron deficiency; E53.8 Deficiency of other specified B group vitamins; E55.9 Vitamin D deficiency, unspecified; K21.9 Gastro-esophageal reflux disease without esophagitis; R11.0 Nausea; Z01.818 Encounter for other preprocedural examination ==

== ENCOUNTER → 2023-08-17 09:34 | Outpatient (BNVA) | payer MEDICAID, SELFPAY | PROVIDERS: PCP Physician Assistant; Visit Provider Physician Assistant Surgical ==

== ENCOUNTER 2023-08-26 08:03 | Inpatient (IN) | payer MEDICAID, SELFPAY ==
[2023-08-17 09:29] LABS: MANUAL DIFF FLAG NO
[2023-08-17 09:50] LABS: Basophils Percent Auto 0.3 % (0-2); Eosinophils Absolute Auto 0.1 X10*3/uL (0.0-0.4); Hematocrit 36.5 % (37.0-47.0); Hemoglobin 11.5 g/dl (12.0-16.0); Imm Gran Abs Auto 0.03 X10*3/uL (0.00-0.03); Imm Gran Pct Auto 0.3 % (0.0-0.4); Lymphocytes Absolute Auto 2.8 X10*3/uL (1.2-4.9); Lymphocytes Percent Auto 29.6 % (20-40); Mean Corpuscular HGB Conc 31.5 g/dl (31.0-35.0); Mean Corpuscular Volume 82.4 fL (80.0-98.0); Monocytes Absolute Auto 0.5 X10*3/uL (0.1-1.2); Monocytes Percent Auto 5.2 % (2-11); Neutrophils Absolute Auto 5.9 x10*3/uL (2.0-8.3); Neutrophils Percent Auto 63.6 % (45-73); Platelet Count 402 X10*3/uL (160-400); Red Blood Count 4.43 X10*6/uL (4.20-5.50); Red Cell Distribution Width 14.1 % (11.0-16.0); White Blood Count 9.3 X10*3/uL (4.8-10.8)
[2023-08-17 09:55] LABS: Prothrombin Time 12.4 SEC (11.1-13.3)
[2023-08-17 09:57] LABS: Partial Thromboplastin Time 35.7 SEC (26.0-36.8)
[2023-08-17 10:27] LABS: Alanine Aminotransferase 18 U/L (0-31); Albumin Level 4.2 g/dL (3.5-5.0); Alkaline Phosphatase 90 U/L (39-117); Anion Gap 13 (12-20); Aspartate Amino Transferase 17 U/L (5-31); Bilirubin Total 0.4 mg/dL (0.0-1.0); Blood Urea Nitrogen 11 mg/dL (9-16); C Reactive Protein 2.83 mg/dL (< or = 0.50); Calcium 9.6 mg/dL (8.4-10.2); Carbon Dioxide 27 mmol/L (22-29); Chloride 106 mmol/L (96-108); Cholesterol 172 mg/dL (<200); Estimated Glomerular Filt Rate > 60; Glucose Random 89 mg/dL (60-115); HDL Cholesterol 41 mg/dL (>40); Iron 48 mcg/dL (30-160); LDL Cholesterol Calculated 108 mg/dL (<100); Percent Iron Saturation 17 % (15-50); Potassium 3.8 mmol/L (3.3-5.1); Sodium 142 mmol/L (135-145); Total Iron Binding Capacity 289 mcg/dL (228-428); Total Protein 7.4 g/dL (6.5-8.0); Triglycerides 119 mg/dL (<150); Unsaturated Iron Binding 241 ug/dL
[2023-08-17 10:46] LABS: Ferritin 67 ng/mL (10-250); TSH reflex Free T4 3.06 uIU/mL (0.32-4.0); Vitamin D 25-OH Total 49.7 ng/mL (>30)
[2023-08-17 10:48] LABS: Estimated Average Glucose 111 mg/dL; Hemoglobin A1c % 5.5 % (<6.0)
[2023-08-17 12:22] LABS: Vitamin B12 497 pg/mL (200-900)
[2023-08-17 12:46] LABS: Insulin 9 uU/mL (2-29)
[2023-08-19 10:47] VITALS: BMI 48.7
[2023-08-21 10:38] LABS: Vitamin A 37 mcg/dL (38-98)
--- NOTE | 2023-08-24 14:36 | HO.ANESPROP2 ---
HPI - Anesthesia Eval Consult details Narrative: 43yo F for Gastrectomy Sleeve,EGD,possible Diaphragmatic hernia,possible Ventral hernia,possible open PMFSH Active Problems Active Problems: All Active Problems Lung mass (Acute) Iron deficiency (Acute) Vitamin B12 deficiency (Acute) Vitamin D deficiency (Acute) GERD (gastroesophageal reflux disease) (Acute) DJD (degenerative joint disease) (Acute) Morbid obesity (Acute ~03/30/23) Past Medical History Medical History (Updated 09/04/23 @ 00:02 by Background Romeo) Back pain Loose, teeth Pleural lipoma GERD (gastroesophageal reflux disease) DJD (degenerative joint disease) Morbid obesity (~03/30/23) Family History Family History Mother Hypertension Alzheimer disease Father Hypertension Diabetes Daughter No problems noted. Daughter No problems noted. 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027 kg Pertinent Lab Results Pertinent Lab Results: Laboratory Tests 08/17/23 08/17/23 09:20 09:28 WBC 9.3 RBC 4.43 Hgb 11.5 L Hct 36.5 L MCV 82.4 MCH 26.0 L MCHC 31.5 RDW 14.1 Plt Count 402 H MPV 10.0 Immature Gran % (Auto) 0.3 Neut % (Auto) 63.6 Lymph % (Auto) 29.6 Bland % (Auto) 5.2 Eos % (Auto) 1.0 Baso % (Auto) 0.3 Lymph # (Auto) 2.8 Bland # (Auto) 0.5 Eos # (Auto) 0.1 Baso # (Auto) 0.0 Abs Immat Gran (auto) 0.03 Absolute Neuts (auto) 5.9 Absolute Nucleated RBC 0.000 Nucleated RBC % (auto) 0.0 PT 12.4 INR 1.0 APTT 35.7 Sodium 142 Potassium 3.8 Chloride 106 Carbon Dioxide 27 Anion Gap 13 BUN 11 Creatinine 0.73 Estim Creat Clear Calc TNP Estimated GFR > 60 Random Glucose 89 Estimat Average Glucose 111 Hemoglobin A1c % 5.5 Insulin Level 9 Calcium 9.6 Iron 48 TIBC 289 % Saturation 17 Unsat Iron Binding 241 Ferritin 67 Total Bilirubin 0.4 AST 17 ALT 18 Alkaline Phosphatase 90 C-Reactive Protein 2.83 H Total Protein 7.4 Albumin 4.2 Triglycerides 119 Cholesterol 172 LDL Cholesterol, Calc 108 H HDL Cholesterol 41 Vitamin A 37 L Vitamin B12 497 25-OH Vitamin D Total 49.7 TSH 3.06 Blood Type O Positive Antibody Screen NEGATIVE Narrative Narrative: EKG 03/2023 Vent. Rate : 067 BPM Atrial Rate : 067 BPM P-R Int : 132 ms QRS Dur : 084 ms QT Int : 404 ms P-R-T Axes : 025 004 003 degrees QTc Int : 426 ms Normal sinus rhythm Normal ECG No previous ECGs available Assessment and Plan Assessment Anesthesia Assessment: Chart Reviewed
[2023-08-26] VITALS (11 sets, daily range): BP systolic 127–148; BP diastolic 70–90; PULSE 72–98; RESP 13–22; TEMP 36–37.2; O2SAT 95–100; BMI 48.0
[2023-08-26] MEDS: Lactated Ringers 1,000 ML 999 ML IV (08:11)
[2023-08-26] MEDS: Lactated Ringers 1,000 ML 100 ML IVCONT ×3 (08:11→23:51)
[2023-08-26] MEDS: Aprepitant 32 MG/4.4 ML VIAL IVPUSH (08:33)
--- NOTE | 2023-08-26 09:26 | P.CONAN_ITS ---
[facility] Active Problems Active Problems: All Active Problems Lung mass (Acute) Iron deficiency (Acute) Vitamin B12 deficiency (Acute) Vitamin D deficiency (Acute) GERD (gastroesophageal reflux disease) (Acute) DJD (degenerative joint disease) (Acute) Morbid obesity (Acute ~03/30/23) Past Medical History Medical History Back pain Loose, teeth Pleural lipoma GERD (gastroesophageal reflux disease) DJD (degenerative joint disease) Morbid obesity (~03/30/23) Functional capacity: independent ambulation Patient : No Family History Family History Mother Hypertension Alzheimer disease Father Hypertension Diabetes Daughter No problems noted. Daughter No problems noted. 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) Do you presently have visiting nurse or other home services: No Alcohol intake: current Alcohol intake frequency: holidays/special occasions only Patient Tobacco Use Status: Never used Tobacco Meds Allergies Allergy/AdvReac Type Severity Reaction Status Date / Time No Known Allergies Allergy Verified 08/26/23 08:01 Active Medications: Current Medications Lactated Ringer's (Lr) 1,000 mls @ 100 mls/hr IVCONT .Q10H LEONID Last Admin: 08/26/23 08:11 Dose: 100 mls/hr Lactated Ringer's (Lr) 1,000 mls @ 999 mls/hr IV .Q1H1M LEONID Stop: 08/26/23 10:00 Last Admin: 08/26/23 08:11 Dose: 999 mls/hr Home Medications ?Medication ?Instructions ?Recorded ?Confirmed ?Last Taken ?Type ibuprofen 600 mg tablet 600 mg PO Q8H PRN Back Pain 02/17/23 08/19/23 05/29/23 History Exam Height,Weight and Vital Signs: Height 5 ft 1 in Weight 115.303 kg Last Vital Signs Temp 98.4 F 08/26/23 08:20 Pulse 89 08/26/23 08:20 Resp 18 08/26/23 08:20 BP 137/85 08/26/23 08:20 Pulse Ox 98 08/26/23 08:20 O2 Del Method Room Air 08/26/23 08:20 Pertinent Lab Results Pertinent Lab Results: Laboratory Tests 08/17/23 08/17/23 09:20 09:28 WBC 9.3 RBC 4.43 Hgb 11.5 L Hct 36.5 L MCV 82.4 MCH 26.0 L MCHC 31.5 RDW 14.1 Plt Count 402 H MPV 10.0 Immature Gran % (Auto) 0.3 Neut % (Auto) 63.6 Lymph % (Auto) 29.6 [place] % (Auto) 5.2 Eos % (Auto) 1.0 Baso % (Auto) 0.3 Lymph # (Auto) 2.8 [place] # (Auto) 0.5 Eos # (Auto) 0.1 Baso # (Auto) 0.0 Abs Immat Gran (auto) 0.03 Absolute Neuts (auto) 5.9 Absolute Nucleated RBC 0.000 Nucleated RBC % (auto) 0.0 PT 12.4 INR 1.0 APTT 35.7 Sodium 142 Potassium 3.8 Chloride 106 Carbon Dioxide 27 Anion Gap 13 BUN 11 Creatinine 0.73 Estim Creat Clear Calc TNP Estimated GFR > 60 Random Glucose 89 Estimat Average Glucose 111 Hemoglobin A1c % 5.5 Insulin Level 9 Calcium 9.6 Iron 48 TIBC 289 % Saturation 17 Unsat Iron Binding 241 Ferritin 67 Total Bilirubin 0.4 AST 17 ALT 18 Alkaline Phosphatase 90 C-Reactive Protein 2.83 H Total Protein 7.4 Albumin 4.2 Triglycerides 119 Cholesterol 172 LDL Cholesterol, Calc 108 H HDL Cholesterol 41 Vitamin A 37 L Vitamin B12 497 25-OH Vitamin D Total 49.7 TSH 3.06 Blood Type O Positive Antibody Screen NEGATIVE Airway Mallampati Class: III TM Dist: >3cm Neck ROM: Full Heart: RRR Lungs: CTA Assessment and Plan Assessment Anesthesia Assessment: Anesthesia Plan Discussed Final Anesthetic Review Family History of Problems with Anesthesia: No History of Problems with Anesthesia: No ASA Class: III Final Preanesthetic Review: Meds/Allgs Chart Reviewed, Consent Obtained/Reviewed and Anes Risks/Benef Reviewed Patient Risk: Intermediate Procedure Risk: Intermediate Anesthetic Plan Anesthetic Plan: GA Disposition: Standard PACU
--- NOTE | 2023-08-26 10:21 | MHC.SHP ---
Pre-Procedural Eval Section A - 24 Hr Update-Section A only Date of Service: 08/26/23 The patient is an INPATIENT: Yes The patient has been examined within 24 hours of the surgical procedure. The History & Physical has been completed within 30 days and I have reviewed it.: No Section B - Complete if H&P > 30 days Chief Complaint: obesity Relevant Family History (Specify if Yes): No Relevant Social History: None Present Medications: None Medical History: No relevant PMH History of Previous Operations: No relevant previous surgery Allergies: Allergies Allergy/AdvReac Type Severity Reaction Status Date / Time No Known Allergies Allergy Verified 08/26/23 08:01 Review of Systems Sugical H&P ROS: Negative: Constitution, Cardiovascular, Respiratory, Neurological, Psychiatric, Hem-Onc, Allergic/Immunologic, Gastrointestinal, Genitourinary, Musculoskeletal, Integumentary, Endocrine and Eyes/Ears/Nose/Throat Exam Surgical H&P Exam: Normal: HEENT, Normal: Heart, Normal: Lungs, Normal: Extremities, Normal: Abdomen, Normal: Skin and Normal: Neurological Plan Diagnosis/Plan: Unchanged I have reviewed the history and physical and performed a pertinent physical examination on my patient. No changes have occurred unless specified. Time Spent With Patient Time: Total time managing care of this patient today ____ minutes.
--- NOTE | 2023-08-26 10:27 | P.BOP_ITS ---
Brief Operative Note Date of Service: 08/26/23 Pre-op diagnosis: Morbid obesity Post-op diagnosis: same Procedure: INITIAL PATIENT BMI ON PRESENTATION AT OUR OFFICE: 48.5 kg/m2 LAST BMI BEFORE SURGERY: 40.1 kg/m2 COMORBIDITIES: DJD, GERD, liver steatosis ?The patient presented to the Weight Management Program with significant obesity that was negatively impacting the patient's comorbidities as listed above.? The program is a phased program with a special focus on preoperative medical weight management to promote substantial weight loss and prepare the patients for the second phase of the program: bariatric surgery. The patient participated in an intensive weekly lifestyle ?intervention and exercise program during which the patient ?has lost between the initial office visit and the last preoperative visit 26.8lbs, or 9.5% of initial actual body weight. It was deemed appropriate for the patient to now have bariatric surgery. In light of the current Covid-19 pandemic and the well documented strong association of obesity and increased risk of worse outcomes if infected with Covid-19 (REFERENCES: https://pubmed.ncbi.nlm.nih.gov/00755726/ ,? https://pubmed.ncbi.nlm.nih.gov/85203525/ ), any delay in undergoing bariatric surgery may lead to the patient's worsening health condition and increased?risk of more severe Covid-19 disease if infected. In addition a recent?study from [facility] published in [facility] on 02/24/2021 ([email or web address]) found that, among patients with obesity, substantial weight loss achieved with surgery was associated with improved outcomes of COVID-19 infection. The findings suggest that obesity can be a modifiable risk factor for the severity of COVID-19 infection. In addition, the patient met the BMI-criteria for bariatric surgery based on the BMI on initial presentation. The patient should not be penalized for achieving such weight loss because ?it is not sustainable long-term without surgical intervention and it was achieved in preparation for bariatric surgery ?under my direction and based on my published research ([email or web address]).[email or web address] and? https://www.dami.org/article/[email or web address](97)34191-X/pdf ) ?that a 10% preoperative weight loss improves long-term weight loss after surgery and reduces perioperative complications.? Insurance carriers such as [facility] have endorsed my recommendations ?and have included in their policies criteria to include a 10% preoperative weight loss requirement. PROCEDURE: Esophago-gastroscopy, laparoscopic sleeve gastrectomy and laparoscopic gastropexy INDICATIONS: This is a 43 year-old female who was electively scheduled for laparoscopic, possibly open sleeve gastrectomy. The risks and complications of the procedure were discussed with the patient in advance, particularly the possibility of ; pulmonary embolism; staple line leak; bleeding; GERD; cardiac, pulmonary, or renal complications; as well as long-term problems such as insufficient weight loss, vitamin deficiency, strictures, or ulcers. The patient understood all the risks, and was in agreement to proceed with surgery. DESCRIPTION OF PROCEDURE: After informed consent was obtained from the patient, the patient was given preoperative antibiotics, and was transferred to the operating room. After successful induction of general anesthesia, pneumatic compression devices were placed on both lower extremities. An upper endoscopy was performed next. The oropharynx and esophagus appeared to be within normal limits. There was no diaphragmatic hernia present. The stomach was entered. Then after all fluid and air were suctioned and the stomach was fully decompressed, the scope was withdrawn and secured in the mid esophagus. The patient was then prepped and draped in the usual sterile manner, and abdominal access was established at the right upper quadrant with the Mirta technique. A 12 mm blunt port was inserted, and the abdomen was insufflated with CO2 to a pressure of 15 mmHg. Under direct visualization, additional ports were placed, specifically two 5 mm Versi-step ports to the left upper quadrant, and a 5 mm Versi-Step port to the right upper quadrant. 1% lidocaine plain was used to infiltrate all port sites as well as all fascia defects. Following that, the patient was placed in a steep reverse Trendelenburg position. An additional 5 mm port was placed to the right flank for the Mediflex retractor that was used to retract the left lobe of the liver. The gastro-esophageal fat pad was opened with the ultrasonic device (Thbrandonerbeyesenia, Olympus) and the anterior esophagus and hiatus were exposed. The angle of His was opened with the ultrasonic device the fundus of the stomach from any diaphragmatic and splenic attachments. I then opened the gastrocolic ligament between the transverse colon and the greater curvature of the stomach with the ultrasonic device to enter the lesser sac and facilitate the ligation of the short gastric vessels. I started at a mid-point along the greater curvature and using the Thunderbeat, all short gastric vessels were divided all the way to the angle of His until the left checo was completely dissected at its entirety. I then divided the gastro-colic ligament distally to a distance of about 3-4 cm proximal to the pylorus.? The stomach was then divided transversely with two Endo ANDRÉS-45 purple and three ANDRÉS-60 articulating purple loads using the Vquence stapler and loads. Every effort was made that the gastric sleeve had a tubular shape and an even caliber throughout. Once the sleeve resection was completed, the staple line of the gastric sleeve was reinforced with Hemoclips. The resected stomach was retrieved without difficulty from the Mirta port. A gastropexy was then performed in order to prevent postoperative GERD and partial gastric volvulus. Several interrupted 2.0 Surgidac sutures were placed between the sleeve's staple line and the previously divided greater omentum and gastro-colic ligament using the Endo-Stitch device. ?An upper endoscopy was performed. There was no narrowing at the GE junction. The scope was easily advanced all the way to the pylorus which was clearly visualized. There was no narrowing anywhere and the sleeve's caliber was even throughout. The sleeve's staple line was inspected and there was no evidence of ischemia, bleeding or dehiscence. At that point the gastroscope was withdrawn from the patient?s mouth while we were decompressing the bowel and the stomach from any remaining air. I looked into the lesser sac to see how the sleeve was situating and it was situating well. There was no bleeding from the staple line, spleen, or short gastric vessels. The Mediflex retractor was removed, and the undersurface of the liver was inspected and there was no bleeding. The patient was placed in supine position. I closed the fascial defect of the 12 mm port site with a figure of eight #1 Polysorb suture. Then 30cc Ropivacaine plain with 10 mg of Dexamethasone were used to infiltrate the fascial closure as well as all skin incisions. A total of 6ml Zynrelef was applied in the Mirta wound. At this point, the abdomen was deflated, all ports were removed under direct vision, and no bleeding was noted from any of the port sites. The skin incisions were irrigated with saline and were closed with 4-0 absorbable monofilament sutures. Steri-Strips and OpSites were used to cover all incisions. The patient was extubated and was transferred in stable condition to the recovery room for further care. I was present and performed all sibley parts of the procedure. Mr Newell was the assistant elementary teacher. There were no residents to assist with this case. Jb Hull MD, PhD, FACS Surgeon: Angel Hull MD Anesthesia: GETA, local and other (TAP block and 6ml Zynrelef) Was an Equity Research Associate used for this Procedure?: No Equity Research Associate: Phu Newell Estimated blood loss (mL): 10 IV fluids (mL): 3,000 Urine output (mL): 0 (No Desir to record output) Pathology: other (Stomach) Condition: stable Disposition: PACU
--- NOTE | 2023-08-26 10:32 | P.PNGS_ITS ---
Subjective Subjective Date of Service: 08/27/23 Interval history: Feels well. Mild incisional pain. She is tolerating phase 1 bariatric diet Physical Exam 2 Vital Signs: Vital Signs: Last Vital Signs Temp 98.4 F 08/26/23 08:20 Pulse 89 08/26/23 08:20 Resp 18 08/26/23 08:20 BP 137/85 08/26/23 08:20 Pulse Ox 98 08/26/23 08:20 O2 Del Method Room Air 08/26/23 08:20 BMI result Body Mass Index 48.0 GI: Inspection: Yes normal to inspection, Yes incision (clean, dry and intact) and Yes obesity Palpation (GI): Soft to palpation Extrem: Right lower extremity: normal to inspection (no calf tenderness) L eft lower extremity: normal to inspection (no calf tenderness) Objective Data Active Medications Fentanyl (Fentanyl Citrate/Pf 100 Mcg/2 Ml Vial) 25 mcg IVPUSH Q5M PRN PRN Reason: Pain, Moderate(Pain Scale 4-6) Stop: 08/26/23 15:39 Hydromorphone HCl (Hydromorphone Hcl 0.5 Mg/0.5 Ml Syringe) 0.25 mg IVPUSH Q5M PRN PRN Reason: Pain, Severe (Pain Scale 7-10) Stop: 08/26/23 15:39 Lactated Ringer's (Lr) 1,000 mls @ 100 mls/hr IVCONT .Q10H LEONID Last Admin: 08/26/23 08:11 Dose: 100 mls/hr Documented By: EULOGIO Ondansetron HCl (Ondansetron Hcl 4 Mg/2 Ml Vial) 4 mg IVPUSH ONCE PRN PRN Reason: Nausea and Vomiting Stop: 08/26/23 15:39 Labs 08/27/23 05:27 08/27/23 05:27 Procedures Date of Service Date of Service: 08/27/23 Progress Note: A&P Assessment and plan (1) Morbid obesity: Status: Acute Assessment and Plan: s/p laparoscopic sleeve gastrectomy and gastropexy Doing well Will check am labs and if OK the patient will be discharged home (2) DJD (degenerative joint disease): Status: Acute (3) GERD (gastroesophageal reflux disease): Status: Acute (4) Steatosis, liver: Status: Acute (5) S/P laparoscopic sleeve gastrectomy: Status: Acute Time Spent With Patient Time: Total time managing care of this patient today ____ minutes. Quality Stroke Does the patient have a stroke diagnosis?: No VTE Prior VTE?: No VTE Risk Level:: Surgical - moderate VTE Device Contraindication: N/A - Device Ordered VTE Drug Contraindication: Treatment Not Indicated
--- NOTE | 2023-08-26 13:20 | PM.DS ---
DS: Providers Provider Date of Service: 08/27/23 Date of admission: 08/26/23 08:03 Primary care physician: Mei Lee PA-C DS: Diagnosis Discharge Diagnosis (1) Morbid obesity: Status: Acute (2) DJD (degenerative joint disease): Status: Acute (3) GERD (gastroesophageal reflux disease): Status: Acute (4) Steatosis, liver: Status: Acute (5) S/P laparoscopic sleeve gastrectomy: Status: Acute DS: Summary Hospital Course Hospital Course: ADMITTING DIAGNOSIS: morbid obesity, gerd ? DISCHARGE DIAGNOSIS: same, s/p laparoscopic sleeve gastrectomy ? PAST SURGICAL HISTORY: tubal ligation, cesarian section ? PROCEDURE: upper endoscopy, laparoscopic sleeve gastrectomy ? DISCHARGE SUMMARY: ? History of Present Illness: ? The patient is a?43 year-old woman with a BMI of?53.3 kg/m2 and associated co-morbidities as described above. The patient had extensive work-up,lost?25 lbs preoperatively and was electively scheduled for laparoscopic, possible open sleeve gastrectomy and gastropexy. Risks and complications of the surgery were discussed with the patient in advance, particularly the possibility of , pulmonary embolism, anastomotic leak, bleeding, bowel injury, GERD, cardiac, renal or pulmonary complications. The patient understood all the risks and was in agreement with the surgical plan. ? Hospital Course: ? The patient underwent an uneventful laparoscopic sleeve gastrectomy with gastropexy on the day of admission. Postoperatively, the patient was transferred to the surgical floor. The patient received IV Acetaminophen and IV dilaudid for pain control. Patient was started on bariatric phase 1 diet POD #0. On postoperative day one, the patient was feeling well without nausea, vomiting, fevers, or tachycardia. The patient had some mild incisional pain and the abdomen was soft. ? On the morning of postoperative day one, the patient was continued on 1 ounce of water or ice every half hour. During the day, the patient did fairly well, having some incisional pain, but able to ambulate adequately and to tolerate liquids well. ? Since the patient is doing well, we decided that the patient was ready to be discharged. The patient was given instructions to follow-up with me next week and to call my office for any fever over 101, persistent abdominal pain, nausea, vomiting, GERD, symptoms of DVT such as calf tenderness, or leg swelling, or pulmonary embolism such as chest pain or shortness of breath. The patient was also instructed to drink 40-60 ounces of liquids per day using the 1-ounce cups. The patient had been given prescriptions for Tylenol for pain, Zofran prn for nausea, and pantoprazole and carafate previously. The patient was encouraged to ambulate and use the incentive spirometer. The patient was allowed to shower, but no baths, and encouraged to stay active at home. All of these instructions were given to the patient personally. All questions were answered and the patient understood all instructions, the instructions were also given to the patient in print. Time Attestation Total time managing care of this patient today: 25 mintues. Discharge Coordination Time (in mins): 25 Quality: Safe Use of Opioids Does Pt have an Active Cancer Diagnosis on the Problem List?: No Quality: Stroke Does the patient have a stroke diagnosis?: No Physical Exam Vital Signs: Vital Signs: Last Vital Signs Temp 98.4 F 08/26/23 08:20 Pulse 89 08/26/23 08:20 Resp 18 08/26/23 08:20 BP 137/85 08/26/23 08:20 Pulse Ox 98 08/26/23 08:20 O2 Del Method Room Air 08/26/23 08:20 BMI result Body Mass Index 48.0 Discharge Plan Discharge Anticipated Discharge Date/Time: 08/27/23 10:00 Patient Disposition: Home, Self-Care Discharge Diagnosis: s/p laparoscopic sleeve gastrectomy Referrals: Mei Lee PA-C [Primary Care Provider] - 1 Week Discharge Medications: Continued sucralfate 100 mg/mL suspension 10 ml PO BID Qty: 600 2RF acetaminophen 325 mg Tablet 650 mg PO Q6H PRN (Reason: Pain) pantoprazole 40 mg tablet,delayed release (DR/EC) 40 mg PO DAILY Qty: 90 0RF ondansetron 4 mg tablet,disintegrating 4 mg PO Q12H Qty: 20 0RF Rx Instructions: Only take one every 12 hours as needed if you have nausea Discontinued cholecalciferol (vitamin D3) 125 mcg (5,000 unit) capsule 125 mcg PO DAILY Qty: 90 0RF mecobalamin (vitamin B12) 1,000 mcg tablet,disintegrating 1,000 mcg sublingual DAILY Qty: 90 0RF Rx Instructions: place tablet under tongue and allow to dissolve for at least30 secs before swallowing Vitron-C 65 mg iron- 125 mg tablet,delayed release (DR/EC) 1 tab PO DAILY Qty: 90 0RF Rx Instructions: swallow whole; do not chew/break/dissolve/open vitamin A palmitate 3,000 mcg (10,000 unit) capsule 10,000 unit PO DAILY Qty: 60 0RF ibuprofen 600 mg tablet 600 mg PO Q8H PRN (Reason: Back Pain) Discharge Orders: Discharge Order (Routine); Ordered 08/27/23 Ordered By: Angel Hull Activity on Discharge: No heavy lifting Stand Alone Forms: Patient Portal Discharge page Print Language: [place] Islander Care Plan Goals: weight loss Health Concerns: morbid obesity Plan of Treatment: No tub baths, sex or returning to work until discussed at first post op appointment. No exercise, alcohol, tobacco or illegal drug use. Continue to use incentive spirometer hourly while awake. Walk in home for 5- 10 minutes every 2 hours during the first week. Follow all instructions in the bariatric handbook and call with any questions.Discharge Instructions 1. Please call your doctor or come back to the emergency room should any new symptoms arise. 2. You will receive a courtesy call from [facility] 24-48 hours after discharge. 3. Activity: abstain from alcohol, practice limited stair climbing, no bending, no driving, no exercise, no illicit substances, no lifting, no sex, no tub bath, no work. 4. Diet: continue as discussed with Dr. Hull. 5. Dressing Change/Wound Care: Your incision is covered by clear bandages and guaze underneath. If the area is tender, you may apply an ice pack for short intervals (no more than 20 minutes on, followed by at least 20 minutes off). Do not apply heat. Do not use creams, lotions, or topical antibiotics unless instructed to do so by your surgeon. These can cause infection or allergic reaction. 6. Call your doctor if: - Your temperature exceeds 101.5 F - You experience excessive pain or swelling - You have an unexpected reaction to medication - You have excessive bleeding - You experience continued vomiting/nausea - Your incision begins to separate - Your incision shows signs of infection such as increased redness, swelling, excessive pain, heat, or drainage (light blood or clear fluid is normal) 7. General instructions: No lifting greater than 5 lbs for 1 week and not more than 20lbs the next 3?weeks. No driving until seen at the office in 5-7 days after surgery. If you do not move your bowels in the next 2 days, please tell?Dr. Hull. Please walk around your home every hour or two to prevent blood clots from forming in your legs. You do not need to wake from sleeping to walk. Please sleep in a bed or couch to prevent kinking at the hips and knees. Please take your incentive spirometer (your lung traveling inventory associate) home with you and use it for the next few days to prevent pneumonia. You may shower, no hot tubs, baths or swimming pools.?Please follow the post op diet instructions you are?given by Dr Hull? and text me daily at 5-6pm for an update.?If you have any issues or concerns or questions please communicate this to him via text.? The Celebrate shakes have all of the bariatric vitamins you need if you consume these shakes. If you are drinking other protein shakes, you will need to purchase the Celebrate multivitamins and calcium that are available in the hospital gift shop on the first floor of the [facility].??Do not take anything without first discussing with Dr Hull. Please make sure you are consuming at least 40 ounces of fluids per day starting the?day AFTER your discharge from the hospital. Always drink 1-2 ml per minute using the 5ml?syringe. If you drink faster you may experience?bloating,?gas pain, burping, nausea or heartburn. In that case please slow down your pace and use the syringe to?understand better the?proper?pace and volume of drinking. Do not hesitate to contact the office with any questions at . The patient's medical history has been reviewed and they are considered low risk for post op DVT and therefore DVT prophylaxis is not considered necessary. Travel after surgery was reviewed. The patient has not disclosed any travel plans during the first 30 days after surgery and they have been advised that within the first 30 days after surgery any bus, plane, train or car travel over 2 hours in duration is contraindicated due to the possibility of developing blood clots from immobility. Any travel, needs to include periods of ambulation of 10 minutes in duration every 2 hours.? The patient was instructed to discuss any plans for travel during this period with their bariatric surgeon. Assessment: stable s/p laparoscopic sleeve gastrectomy Patient Instructions: Nutrition after Bariatric Surgery (DC), Laparoscopic Sleeve Gastrectomy (DC) Discharge Date/Time: 08/27/23 09:46
[2023-08-26] MEDS: HYDROmorphone HCl 0.5 MG/0.5 ML SYRINGE 0.25 MG IVPUSH ×2 (13:35→13:40)
[2023-08-26] MEDS: ondansetron HCL 4 MG/2 ML VIAL IVPUSH (13:36)
[2023-08-26 14:30] LABS: Hematocrit 33.5 % (37.0-47.0); Hemoglobin 10.7 g/dl (12.0-16.0)
[2023-08-26 14:41] LABS: Anion Gap 14 (12-20); Blood Urea Nitrogen 9 mg/dL (9-16); Calcium 9.3 mg/dL (8.4-10.2); Carbon Dioxide 22 mmol/L (22-29); Chloride 107 mmol/L (96-108); Creatinine Clr Calc Pharmacy 137.4; Estimated Glomerular Filt Rate > 60; Glucose Random 140 mg/dL (60-115); Sodium 139 mmol/L (135-145)
--- NOTE | 2023-08-26 14:46 | PHA.MEDREC ---
Pharmacy Consult ? Medication Reconciliation Pharmacy has completed the medication reconciliation. Reviewed home meds and was able to speak with patient's family who helped me talk with patient and confirm which meds she was taking. Left ondansetron, pantoprazole, and sucralfate unconfirmed as patient didn't seem to recognize them and there is no fill history yet.
[2023-08-26] MEDS: Acetaminophen 1,000 MG/100 ML PIGGYBACK 16.7 MG IV ×2 (15:13→20:58)
[2023-08-26] MEDS: ceFAZolin Sodium/Dextrose,Iso 2 GM/50 ML PIGGYBACK IV (16:15)
[2023-08-26] MEDS: Famotidine/PF 20 MG/2 ML VIAL IVPUSH (21:00)
[2023-08-27 00:16] VITALS: BP 126/69; PULSE 72; RESP 18; TEMP 36.4; O2SAT 96
[2023-08-27 03:04] VITALS: BP 110/59; PULSE 70; RESP 18; TEMP 36.2; O2SAT 94
[2023-08-27] MEDS: Acetaminophen 1,000 MG/100 ML PIGGYBACK 16.7 MG IV (03:06)
[2023-08-27 05:59] LABS: MANUAL DIFF FLAG NO
[2023-08-27 06:28] LABS: Basophils Percent Auto 0.1 % (0-2); Hematocrit 34.5 % (37.0-47.0); Hemoglobin 11.1 g/dl (12.0-16.0); Imm Gran Abs Auto 0.05 X10*3/uL (0.00-0.03); Imm Gran Pct Auto 0.5 % (0.0-0.4); Lymphocytes Absolute Auto 1.5 X10*3/uL (1.2-4.9); Lymphocytes Percent Auto 15.4 % (20-40); Mean Corpuscular HGB Conc 32.2 g/dl (31.0-35.0); Mean Corpuscular Hemoglobin 25.9 pg (27.0-33.0); Mean Corpuscular Volume 80.6 fL (80.0-98.0); Mean Platelet Volume 10.9 fL (9.4-12.3); Monocytes Absolute Auto 0.3 X10*3/uL (0.1-1.2); Monocytes Percent Auto 2.7 % (2-11); Neutrophils Percent Auto 81.3 % (45-73); Platelet Count 422 X10*3/uL (160-400); Red Blood Count 4.28 X10*6/uL (4.20-5.50); Red Cell Distribution Width 14.1 % (11.0-16.0); White Blood Count 9.9 X10*3/uL (4.8-10.8)
[2023-08-27 06:32] LABS: Anion Gap 17 (12-20); Blood Urea Nitrogen 6 mg/dL (9-16); Calcium 9.8 mg/dL (8.4-10.2); Carbon Dioxide 23 mmol/L (22-29); Chloride 106 mmol/L (96-108); Creatinine Clr Calc Pharmacy 133.1; Estimated Glomerular Filt Rate > 60; Glucose Random 115 mg/dL (60-115); Potassium 4.1 mmol/L (3.3-5.1); Sodium 142 mmol/L (135-145)
[2023-08-27] MEDS: 0.9 % Sodium Chloride Flush 3 ML SYRINGE IVFLUSH (07:16)
[2023-08-27] MEDS: Famotidine/PF 20 MG/2 ML VIAL IVPUSH (07:16)
[2023-08-27 07:29] VITALS: BP 145/96; PULSE 63; RESP 18; TEMP 36.1; O2SAT 98
--- NOTE | 2023-08-27 08:41 | HO.POSTANES ---
Post Anesthesia Evaluation Post Anesthesia Evaluation Date of Service: 08/26/23 Vital Signs: Vital Signs Temp Pulse Resp BP Pulse Ox O2 Del Method 08/27/23 07:29 96.9 F 63 18 145/96 H 98 Room Air 08/27/23 03:04 97.2 F 70 18 110/59 L 94 Room Air 08/27/23 00:16 97.5 F 72 18 126/69 96 Room Air Anesthesia: General Endotracheal-GETA Mental Status: Awake Pain Control: Satisfactory Nausea/Vomiting: None Hydration: Adequate Anesthesia-Related Issues: No Anes. Related Issues
--- NOTE | 2023-08-27 09:23 | MHC.CM.PN ---
Patient lives at home w/ . Functionally independent. Denies use of services or DME. PCP Mei DIXON No HCP. CM provided education and offered assistance. Patient declined. DP: Medically cleared for dc home self care. Sister at bedside to transport.
== END 2023-08-27 09:46 | disposition home or self-care (01) | DRG 403 ==
LOC: HO.SSSA 13:22 → HO.S3 13:27
PROVIDERS: Physician Assistant Surgical; Admitting Provider Surgery; PCP Physician Assistant; Visit Provider Surgery
PROC: 0DB64Z3 Excision of Stomach, Percutaneous Endoscopic Approach, Vertical (ICD-10-PCS; CPT 43845; principal; 2023-08-26 10:20)
DX: E66.01 Morbid (severe) obesity due to excess calories (principal); K76.0 Fatty (change of) liver, not elsewhere classified; K21.9 Gastro-esophageal reflux disease without esophagitis; M19.90 Unspecified osteoarthritis, unspecified site; Z68.41 Body mass index [BMI] 40.0-44.9, adult; Z79.899 Other long term (current) drug therapy
CPT/HCPCS: 36415; 80048; 80053; 80061; 82306; 82607; 82728; 83036; 83525; 83540; 84443; 84590; 85014; 85018; 85025; 85610; 85730; 86140; 86850; 86900; 86901; 88304; 88305; 88307; 88342; A4649; C9088; C9145; J0131; J0690; J1100; J1170; J2250; J2405; J2704; J2795; J3010; J7120

== ENCOUNTER → 2023-08-26 08:03 | Outpatient (BNV) | payer MEDICAID, SELFPAY | PROVIDERS: Admitting Provider Surgery; PCP Physician Assistant; Visit Provider Surgery | DX: E66.01 Morbid (severe) obesity due to excess calories (principal); M19.90 Unspecified osteoarthritis, unspecified site; K21.9 Gastro-esophageal reflux disease without esophagitis; K76.0 Fatty (change of) liver, not elsewhere classified; Z98.84 Bariatric surgery status | CPT/HCPCS: 43659; 43775; 99024; 99499 ==

== ENCOUNTER 2023-08-31 09:31 | Outpatient (AMB) | payer MEDICAID, SELFPAY ==
--- NOTE | 2023-08-31 09:44 | A.OFFVIS_ITS ---
VS Expanded 08/31/23 10:00 BP 131/88 Blood Pressure Location Rt brachial Blood Pressure Position Sitting Pulse 86 Pulse Source Pulse Oximeter Temp 97.8 F Temperature Source Temporal Artery Scan Pulse Oximetry 93 Oxygen Delivery Method Room Air Height 5 ft 4 in Weight 246 lb 9.6 oz BMI 42.3 Body Fat % 52.0 Body Fat Mass 128.0 Fat Free Mass 118.4 Visceral Fat Rating 17.0 Body Water % 34.3 Body Water Mass 84.6 Muscle Mass/Score 112.4 Basal Metabolic Rate/Score 1,723 Intake Visit Reasons: (OV) PO LSG 08/26/23 Allergies No Known Allergies Allergy (Verified 08/31/23 09:47) Medication List - Last Reconciled 08/31/23 by DESTINY Valerio acetaminophen 650 mg PO Q6H PRN ondansetron 4 mg PO Q12H pantoprazole 40 mg PO DAILY sucralfate 10 mL PO BID HPI Comments Details: Pt is 5d s/p LSG 08/26/2023. Reports feeling well, no N/V, no abd pain. Tolerating 3 Celebrate 4:1 shakes with 1 scoop each in UAM. Drinking adequate fluids. Exercise- walking for now. [facility] Medical History (Updated 08/26/23 @ 10:33 by Angel Hull MD) Back pain Loose, teeth Pleural lipoma GERD (gastroesophageal reflux disease) DJD (degenerative joint disease) Morbid obesity (~03/30/23) Surgical History (Updated 08/31/23 @ 10:04 by Kaleigh Williamson CMA) Hx of laparoscopic partial gastrectomy Hx of tubal ligation Hx of section Family History Mother Hypertension Alzheimer disease Father Hypertension Diabetes Daughter No problems noted. Daughter No problems noted. 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 at home: Yes (children) Do you presently have visiting nurse or other home services: No 75 years or older and lives alone: No Alcohol intake: current Alcohol intake frequency: holidays/special occasions only Patient Tobacco Use Status: Never used Tobacco service: No Physical Exam Vital Signs: Last Vital Signs Temp 97.8 F 08/31/23 10:00 Pulse 86 08/31/23 10:00 BP 131/88 08/31/23 10:00 Pulse Ox 93 08/31/23 10:00 Oxygen Delivery Method Room Air 08/31/23 10:00 BMI result Body Mass Index 42.3 Const General: cooperative, comfortable and no acute distress Orientation/consciousness: patient oriented x3 GI Other: soft, nontender, nondistended, incisions well healed, no hernia, no masses Neuro General: patient oriented x3 Assessment & Plan Assessment & Plan (1) S/P laparoscopic sleeve gastrectomy: Code(s): Z98.84 - Bariatric surgery status Category: Surgical (2) Morbid obesity: Onset Date: ~03/30/23 Code(s): E66.01 - Morbid (severe) obesity due to excess calories Category: Medical Plan May shower tomorrow but no bath or submersion of abdomen in water. May start exercise in 2 days.? No abdominal exercises x 6 weeks. Abdominal binder for the next 2 weeks with activity or exercise. Continue meal plan per Dr Guajardo until next f/u in 2 weeks. Reviewed pantoprazole and carafate dosing. Reminded of the pace of drinking 2 mL/min or 1oz per 15 min. Will be emailed link for post op video for review. RTC 2 weeks. Patient is morbidly obese and is not considered stable at this time. I spent a total of 30 minutes reviewing/updating records, examining the patient and counseling the patient on weight management as detailed above.
[2023-08-31 10:00] VITALS: BP 131/88; PULSE 86; TEMP 36.6; O2SAT 93; BMI 42.3
== END 2023-08-31 10:30 | disposition home or self-care (01) ==
PROVIDERS: PCP Physician Assistant; Visit Provider Physician Assistant Surgical
DX: E66.01 Morbid (severe) obesity due to excess calories (principal); Z68.41 Body mass index [BMI] 40.0-44.9, adult; Z90.3 Acquired absence of stomach [part of]; Z98.84 Bariatric surgery status
CPT/HCPCS: 99024

== ENCOUNTER → 2023-08-31 09:31 | Outpatient (BNVA) | payer MEDICAID, SELFPAY | PROVIDERS: PCP Physician Assistant; Visit Provider Physician Assistant Surgical | DX: E66.01 Morbid (severe) obesity due to excess calories (principal); Z48.815 Encounter for surgical aftercare following surgery on the digestive system; Z98.84 Bariatric surgery status; Z68.42 Body mass index [BMI] 45.0-49.9, adult | CPT/HCPCS: 99212 ==

== ENCOUNTER 2023-09-24 10:10 | Outpatient (AMB) | payer MEDICAID, SELFPAY ==
--- NOTE | 2023-09-24 10:17 | A.OFFVIS_ITS ---
VS Expanded 09/24/23 10:26 BP 120/71 Blood Pressure Location Rt brachial Blood Pressure Position Sitting Pulse 91 Pulse Source Pulse Oximeter Temp 98.0 F Temperature Source Temporal Artery Scan Pulse Oximetry 97 Oxygen Delivery Method Room Air Height 5 ft 4 in Weight 231 lb 9.6 oz BMI 39.7 Body Fat % 49.3 Body Fat Mass 114.2 Fat Free Mass 117.2 Visceral Fat Rating 13.0 Body Water % 36.2 Body Water Mass 83.8 Muscle Mass/Score 111.4 Basal Metabolic Rate/Score 1,686 Intake Visit Reasons: (ov) PO LSG 08/26/23 Allergies No Known Allergies Allergy (Verified 09/24/23 10:25) HPI Comments Details: This?a?43?yo female who is s/p LSG without hiatal hernia repair on?08/26/2023. Presents for 1 month post op visit. I requested that she come into the office today for evaluation as there was some difficulty understanding exactly what she is doing for her meal plan. She additionally was having difficulty with constipation and I felt she should be seen in person. Weight today is 231.6 pounds, with a BMI of 39.8. There has been a 50.8 pound weight loss,(initial weight 282.4 pounds) since starting the program on 03/22/2023 reflecting a 17.9 % total body weight loss and a weight loss of 25.8 pounds since surgery (operative weight 257.4 pounds) reflecting a 10 % TBWL since surgery. She did have a new diagnosis of left arm cellulitis after a ?bug bite?. She was placed on doxycycline although this made her feel nauseous. She is going to discuss this with her prescribing provider. Reports pos BM yesterday after suppository. Present meal plan includes: celebrate 4 in 1 1 scoop in 8 oz almond milk 6-8, 9-11, isopure 1 scoop in 8 oz water 12-2 ZP bar 5-8 Drinking 45 oz water daily ? Exercise routine includes: PF gym treadmill and stationary bike 4 days/week, 300 karli [facility] Medical History (Updated 09/04/23 @ 00:02 by Background Dasamantha) Back pain Loose, teeth Pleural lipoma GERD (gastroesophageal reflux disease) DJD (degenerative joint disease) Morbid obesity (~03/30/23) Surgical History Hx of laparoscopic partial gastrectomy Hx of tubal ligation Hx of section Family History Mother Hypertension Alzheimer disease Father Hypertension Diabetes Daughter No problems noted. Daughter No problems noted. Son Autism Social History Household Members: Family Housing: House Are you a primary healthcare sales representative to a significant other at home: Yes (children) Do you presently have visiting nurse or other home services: No 75 years or older and lives alone: No Alcohol intake: current Alcohol intake frequency: holidays/special occasions only Patient Tobacco Use Status: Never used Tobacco service: No Physical Exam Extrem Other: 3 x 3.5 area of erythema, well-circumscribed to the left arm, slightly raised and slightly warm Assessment & Plan Assessment & Plan (1) S/P laparoscopic sleeve gastrectomy: Code(s): Z98.84 - Bariatric surgery status Category: Surgical Plan: Patient had constipation, now resolved after suppository yesterday. She remains on antibiotics prescribed by outside provider for left arm cellulitis. She will continue her current meal plan. Encouraged to track calories at the gym with a goal of burning 2000 per week. Increase from 300 today to 400-450 per day, ultimately 500 as she is only able to go 4 days per week. Keep scheduled appointment with my colleague Keyonna for next week.
[2023-09-24 10:26] VITALS: BP 120/71; PULSE 91; TEMP 36.7; O2SAT 97; BMI 39.7
== END 2023-09-24 10:55 | disposition home or self-care (01) ==
PROVIDERS: PCP Physician Assistant; Visit Provider Physician Assistant Surgical
DX: Z98.84 Bariatric surgery status (principal)
CPT/HCPCS: 99024

== ENCOUNTER → 2023-09-24 10:10 | Outpatient (BNVA) | payer MEDICAID, SELFPAY | PROVIDERS: PCP Physician Assistant; Visit Provider Physician Assistant Surgical | DX: E66.9 Obesity, unspecified (principal); Z68.39 Body mass index [BMI] 39.0-39.9, adult; Z90.3 Acquired absence of stomach [part of] | CPT/HCPCS: 99212 ==

== ENCOUNTER 2023-09-30 09:55 | Outpatient (AMB) | payer MEDICAID, SELFPAY ==
--- NOTE | 2023-09-30 10:09 | MHC.OFFVISWM ---
VS Expanded 09/30/23 10:17 Height 5 ft 4 in Weight 231 lb BMI 39.6 Intake Visit Reasons: (TV) PO LSG 08/26/23 Card Runner Required: Yes Allergies No Known Allergies Allergy (Verified 09/24/23 10:25) Medication List - Last Reconciled 09/30/23 by DESTINY Valerio acetaminophen 650 mg PO Q6H PRN bisacodyl (Dulcolax (bisacodyl)) 10 mg HI DAILY PRN ondansetron 4 mg PO Q12H pantoprazole 40 mg PO DAILY sucralfate 10 mL PO BID HPI Comments Details: This?is a?43?yo female who is s/p LSG 08/26/23. Presents for 1 month post op visit. Was seen last week for concerns of constipation and meal plan understanding.? No complaints of nausea, emesis, abdominal pain or reflux today. Constipation is improved after visit last week, using suppository. Was being treated for arm cellulitis, abx was giving her some nausea. Present meal plan includes: celebrate 4 in 1, 1 scoop in 8 oz almond milk 6-8, 9-11 isopure 1 scoop in 8 oz water 12-2 ZP bar 5-8 Drinking 45 oz water daily Exercise routine includes: PF gym treadmill and stationary bike 4 days/week, goal 500 karli PFSH Medical History (Updated 09/04/23 @ 00:02 by Toby Dasamantha) Back pain Loose, teeth Pleural lipoma GERD (gastroesophageal reflux disease) DJD (degenerative joint disease) Morbid obesity (~03/30/23) Surgical History Hx of laparoscopic partial gastrectomy Hx of tubal ligation Hx of section Family History Mother Hypertension Alzheimer disease Father Hypertension Diabetes Daughter No problems noted. Daughter No problems noted. Son Autism Social History Household Members: Family Housing: House Are you a primary client care representative to a significant other at home: Yes (children) Do you presently have visiting nurse or other home services: No 75 years or older and lives alone: No Alcohol intake: current Alcohol intake frequency: holidays/special occasions only Patient Tobacco Use Status: Never used Tobacco service: No Telehealth Telehealth Telehealth Platform: Telephone Location of provider rendering services: other Location of patient: address on file Patient Identification confirmed using: Name, : Yes Telehealth method: voice only Patient verbally consented to treatment: Yes Patient verbally consented to billing insurance company: Yes Patient informed of any privacy concerns related to visit: Yes Minutes spent on Phone/Video with Pt.: 15 Assessment & Plan Assessment & Plan (1) S/P laparoscopic sleeve gastrectomy: Code(s): Z98.84 - Bariatric surgery status Category: Surgical (2) Morbid obesity: Onset Date: ~03/30/23 Code(s): E66.01 - Morbid (severe) obesity due to excess calories Category: Medical Plan Pt will text her measurements to Dr Casandra connell and follow any meal plan updates. Goal to increase exercise to 2000 karli/week. Gave pt my cell phone # and encouraged her to reach out with any concerns/questions between now and next visit. RTC 1 month. I spent a total of 30 minutes reviewing/updating records, examining the patient and counseling the patient on weight management as detailed above.
[2023-09-30 10:17] VITALS: BMI 39.6
== END 2023-09-30 10:31 | disposition home or self-care (01) ==
PROVIDERS: PCP Physician Assistant; Visit Provider Physician Assistant Surgical
DX: E66.01 Morbid (severe) obesity due to excess calories (principal); Z68.39 Body mass index [BMI] 39.0-39.9, adult; Z90.3 Acquired absence of stomach [part of]; Z98.84 Bariatric surgery status
CPT/HCPCS: 99024

== ENCOUNTER → 2023-09-30 09:55 | Outpatient (BNVA) | payer MEDICAID, SELFPAY | PROVIDERS: PCP Physician Assistant; Visit Provider Physician Assistant Surgical ==

== ENCOUNTER 2023-11-15 12:33 | Outpatient (AMB) | payer MEDICAID, SELFPAY ==
--- NOTE | 2023-11-15 12:15 | A.OFFVIS_ITS ---
VS Expanded 11/15/23 12:22 Height 5 ft 4 in Weight 207 lb BMI 35.5 Intake Visit Reasons: TELEPHONE PO LSG 08/26/23 Business Analyst Project Manager Required: Yes Allergies No Known Allergies Allergy (Verified 09/24/23 10:25) Medication List - Last Reconciled 11/15/23 by DESTINY Valerio acetaminophen 650 mg PO Q6H PRN bisacodyl (Dulcolax (bisacodyl)) 10 mg [place] DAILY PRN pantoprazole 40 mg PO DAILY sucralfate 10 mL PO BID HPI Comments Details: This?is a?43?yo female who is s/p LSG 08/26/2023. Presents for 3 month post op visit. Weight at last visit on 09/30/2023 was 231 pounds with a BMI of 39.6, weight today is 207 pounds, representing a 24 pound weight loss with a BMI today of 35.5.? No complaints of nausea, emesis, abdominal pain or reflux, or constipation. Pt asks about alcohol use. Present meal plan includes: celebrate 4 in 1, 1 scoop in 8 oz almond milk 6-8, 9-11 isopure 1 scoop in 8 oz water 12-2 ZP bar 5-8 Exercise routine includes: PF gym treadmill and stationary bike almost every day, goal 500 karli PFSH Medical History (Updated 11/15/23 @ 12:25 by DESTINY Valerio) Back pain Loose, teeth Pleural lipoma GERD (gastroesophageal reflux disease) DJD (degenerative joint disease) Morbid obesity (~03/30/23) Surgical History Hx of laparoscopic partial gastrectomy Hx of tubal ligation Hx of section Family History Mother Hypertension Alzheimer disease Father Hypertension Diabetes Daughter No problems noted. Daughter No problems noted. Son Autism Social History Household Members: Family Housing: House Are you a primary career coordinator to a significant other at home: Yes (children) Do you presently have visiting nurse or other home services: No 75 years or older and lives alone: No Alcohol intake: current Alcohol intake frequency: holidays/special occasions only Patient Tobacco Use Status: Never used Tobacco service: No Telehealth Telehealth Telehealth Platform: Telephone Location of provider rendering services: practice address Location of patient: address on file Patient Identification confirmed using: Name, : Yes Telehealth method: voice only Patient verbally consented to treatment: Yes Patient verbally consented to billing insurance company: Yes Patient informed of any privacy concerns related to visit: Yes Minutes spent on Phone/Video with Pt.: 16 Assessment & Plan Assessment & Plan (1) S/P laparoscopic sleeve gastrectomy: Code(s): Z98.84 - Bariatric surgery status Category: Surgical (2) Obesity: Code(s): E66.9 - Obesity, unspecified Category: Medical Plan Pt to continue meal plan per Dr. Verde Complete course of PPI/carafate this month. Avoid alcohol until 3 months postop. RTC 6 weeks. I spent a total of 30 minutes reviewing/updating records, examining the patient and counseling the patient on weight management as detailed above.
[2023-11-15 12:22] VITALS: BMI 35.5
== END 2023-11-15 13:00 | disposition home or self-care (01) ==
LOC: HO.HBS 12:33
PROVIDERS: PCP Physician Assistant; Visit Provider Physician Assistant Surgical
DX: E66.9 Obesity, unspecified (principal); Z68.35 Body mass index [BMI] 35.0-35.9, adult; Z98.84 Bariatric surgery status
CPT/HCPCS: 99024

== ENCOUNTER → 2023-11-15 12:33 | Outpatient (BNVA) | payer MEDICAID, SELFPAY | PROVIDERS: PCP Physician Assistant; Visit Provider Physician Assistant Surgical | DX: Z98.84 Bariatric surgery status (principal); E66.9 Obesity, unspecified ==

== ENCOUNTER 2024-01-12 11:52 | Outpatient (AMB) | payer MEDICAID, SELFPAY ==
--- NOTE | 2024-01-12 11:31 | A.OFFVIS_ITS ---
VS Expanded 01/12/24 11:35 Height 5 ft 4 in Weight 182 lb BMI 31.2 Intake Visit Reasons: TELEPHONE PO LSG 08/26/23 Vending Machine Repairer Required: Yes Vending Machine Repairer Name: Vy [id number] Gan Information Interpreted: clinical only Allergies No Known Allergies Allergy (Verified 09/24/23 10:25) Medication List - Last Reconciled 01/12/24 by DESTINY Valerio acetaminophen 650 mg PO Q6H PRN bisacodyl (Dulcolax (bisacodyl)) [address] DAILY PRN HPI Comments Details: This?is a?44?yo female who is s/p LSG 08/26/2023. Presents for 4.5 month post op visit. Weight at last visit on 11/15/2023 was 207 pounds with a BMI of 35.5, weight today is 182 pounds, representing a 25 pound weight loss with a BMI today of 31.2.? No complaints of nausea, emesis, abdominal pain, or constipation. Off PPI and carafate now. Had one episode of heartburn but got better with drinking water. Present meal plan includes: celebrate 4 in 1, 1 scoop in 8 oz almond milk 6-8, 9-11 isopure 1 scoop in 8 oz water 12-2 ZP bar 5-8 Exercise routine includes: PF gym treadmill and stationary bike almost every day, goal 500 karli PFSH Medical History (Updated 11/15/23 @ 12:25 by DESTINY Valerio) Back pain Loose, teeth Pleural lipoma GERD (gastroesophageal reflux disease) DJD (degenerative joint disease) Morbid obesity (~03/30/23) Surgical History Hx of laparoscopic partial gastrectomy Hx of tubal ligation Hx of section Family History Mother Hypertension Alzheimer disease Father Hypertension Diabetes Daughter No problems noted. Daughter No problems noted. Son Autism Social History Household Members: Family Housing: House Are you a primary intensive care specialist to a significant other at home: Yes (children) Do you presently have visiting nurse or other home services: No 75 years or older and lives alone: No Alcohol intake: current Alcohol intake frequency: holidays/special occasions only Patient Tobacco Use Status: Never used Tobacco service: No Physical Exam Vital Signs: BMI result Body Mass Index 31.2 Telehealth Telehealth Telehealth Platform: Telephone Location of provider rendering services: other Location of patient: address on file Patient Identification confirmed using: Name, : Yes Telehealth method: voice only Patient verbally consented to treatment: Yes Patient verbally consented to billing insurance company: Yes Patient informed of any privacy concerns related to visit: Yes Minutes spent on Phone/Video with Pt.: 16 Assessment & Plan Assessment & Plan (1) S/P laparoscopic sleeve gastrectomy: Code(s): Z98.84 - Bariatric surgery status Category: Surgical (2) Obesity: Code(s): E66.9 - Obesity, unspecified Category: Medical Plan Pt doing very well with weight loss on current plan. Continue per Dr. Verde Discussed the likelihood of meal plan progression, such as possibly starting solids once BMI closer to 30 or less than 30. RTC 2 months. Labs at next visit. I spent a total of 30 minutes reviewing/updating records, examining the patient and counseling the patient on weight management as detailed above.
[2024-01-12 11:35] VITALS: BMI 31.2
== END 2024-01-12 11:59 | disposition home or self-care (01) ==
LOC: HO.HBS 11:52
PROVIDERS: PCP Physician Assistant; Visit Provider Physician Assistant Surgical
DX: Z98.84 Bariatric surgery status (principal); E66.9 Obesity, unspecified
CPT/HCPCS: 99214

== ENCOUNTER 2024-04-10 10:14 | Outpatient (AMB) | payer MEDICAID, SELFPAY ==
--- NOTE | 2024-04-10 09:50 | A.OFFVIS_ITS ---
VS Expanded 04/10/24 09:54 Height 5 ft 4 in Weight 148 lb 8 oz BMI 25.5 Intake Visit Reasons: TELEPHONE PO LSG 08/26/23 Extension Course Coordinator Required: Yes Extension Course Coordinator Name: Krissy Gan Information Interpreted: clinical only Allergies No Known Allergies Allergy (Verified 09/24/23 10:25) Medication List - Last Reconciled 04/10/24 by DESTINY Valerio acetaminophen 650 mg PO Q6H PRN bisacodyl (Dulcolax (bisacodyl)) 10 mg [place] DAILY PRN HPI Comments Details: This?is a 44?yo female who is s/p LSG 08/26/2023. Presents for 8 month post op visit. Weight at last visit on 01/12/2024 was 182 pounds with a BMI of 31.2, weight today is 148.8 pounds, representing a 35.2 pound weight loss with a BMI today of 25.5.? No complaints of nausea, emesis, abdominal pain or reflux, or constipation. Present meal plan includes: celebrate 4 in 1, 1 scoop in 8 oz almond milk 6-8, 9-11 isopure 1 scoop in 8 oz water 12-2 ZP bar 5-8 Exercise routine includes: PF gym treadmill and stationary bike almost every day, goal 500 karli Pt reports problems of excess skin of arms and abdomen. Regarding excess skin of arms, she is having difficulty finding clothing that fits comfortably due to volume of excess skin of arms. Her mobility is limited when she is walking and becomes uncomfortable due to excess skin of arms rubbing against the torso with movement. Pt reports problems of excess skin of abdomen, including having difficulty finding pants that fit comfortably. She has to wear a compressive waistband or garment to hold the excess skin in place to prevent discomfort. She has noticed moisture in the skin folds which smells unpleasant and she has to wash and shower frequently. [facility] Medical History (Updated 04/10/24 @ 10:08 by DESTINY Valerio) Back pain Loose, teeth Pleural lipoma GERD (gastroesophageal reflux disease) DJD (degenerative joint disease) Morbid obesity (~03/30/23) Surgical History Hx of laparoscopic partial gastrectomy Hx of tubal ligation Hx of section Family History Mother Hypertension Alzheimer disease Father Hypertension Diabetes Daughter No problems noted. Daughter No problems noted. Son Autism Social History Household Members: Family Housing: House Are you a primary child care coordinator to a significant other at home: Yes (children) Do you presently have visiting nurse or other home services: No 75 years or older and lives alone: No Alcohol intake: current Alcohol intake frequency: holidays/special occasions only Patient Tobacco Use Status: Never used Tobacco service: No Telehealth Telehealth Telehealth Platform: Telephone Location of provider rendering services: other Location of patient: address on file Patient Identification confirmed using: Name, : Yes Telehealth method: voice only Patient verbally consented to treatment: Yes Patient verbally consented to billing insurance company: Yes Patient informed of any privacy concerns related to visit: Yes Minutes spent on Phone/Video with Pt.: 16 Assessment & Plan Assessment & Plan (1) Overweight: Code(s): E66.3 - Overweight Category: Medical (2) S/P laparoscopic sleeve gastrectomy: Code(s): Z98.84 - Bariatric surgery status Category: Medical Plan Congratulated pt on her success so far with weight loss, starting weight 282lbs at first visit with us. Will continue meal plan per Dr Mehreen Snyder ordered. Discussed skin removal surgery requirements, pt will qualify in Jan 2025. Pt is experiencing issues of excess skin of upper arms and abdomen resulting in limitation of movement, difficulty with clothing fitting comfortably, and discomfort due to excess skin. RTC 3 months. I spent a total of 30 minutes reviewing/updating records, examining the patient and counseling the patient on weight management as detailed above. Orders: Orders Hemoglobin A1c Today Z98.84 - Bariatric surgery status Lipid Panel Today Z98.84 - Bariatric surgery status IRON PROFILE Today Z98.84 - Bariatric surgery status Comprehensive Met. Panel Today Z98.84 - Bariatric surgery status Zinc Today Z98.84 - Bariatric surgery status C Reactive Protein Today Z98.84 - Bariatric surgery status Vitamin B1 Today Z98.84 - Bariatric surgery status Vitamin D 25-OH Total Today Z98.84 - Bariatric surgery status Insulin Today Z98.84 - Bariatric surgery status Complete Blood Count Auto Diff Today Z98.84 - Bariatric surgery status Vitamin B12 and Folate Today Z98.84 - Bariatric surgery status Vitamin A Today Z98.84 - Bariatric surgery status TSH reflex Free T4 Today Z98.84 - Bariatric surgery status Ferritin Today Z98.84 - Bariatric surgery status
[2024-04-10 09:54] VITALS: BMI 25.5
== END 2024-04-10 10:14 | disposition home or self-care (01) ==
LOC: HO.HBS 10:14
PROVIDERS: PCP Physician Assistant; Visit Provider Physician Assistant Surgical
DX: E66.3 Overweight (principal); Z98.84 Bariatric surgery status
CPT/HCPCS: 99214

== ENCOUNTER → 2024-04-10 10:14 | Outpatient (BNVA) | payer MEDICAID, SELFPAY | PROVIDERS: PCP Physician Assistant; Visit Provider Physician Assistant Surgical | DX: Z98.84 Bariatric surgery status (principal); E66.3 Overweight ==

== ENCOUNTER 2024-04-11 08:31 | Outpatient (REF) | payer MEDICAID, SELFPAY ==
[2024-04-11 08:52] LABS: MANUAL DIFF FLAG NO
[2024-04-11 09:39] LABS: Basophils Percent Auto 0.3 % (0-2); Eosinophils Absolute Auto 0.1 X10*3/uL (0.0-0.4); Eosinophils Percent Auto 0.9 % (0-4); Imm Gran Abs Auto 0.03 X10*3/uL (0.00-0.03); Imm Gran Pct Auto 0.3 % (0.0-0.4); Lymphocytes Absolute Auto 3.1 X10*3/uL (1.2-4.9); Lymphocytes Percent Auto 35.2 % (20-40); Mean Corpuscular HGB Conc 31.4 g/dl (31.0-35.0); Mean Corpuscular Hemoglobin 26.3 pg (27.0-33.0); Mean Corpuscular Volume 83.5 fL (80.0-98.0); Mean Platelet Volume 10.7 fL (9.4-12.3); Monocytes Absolute Auto 0.5 X10*3/uL (0.1-1.2); Monocytes Percent Auto 5.2 % (2-11); Neutrophils Absolute Auto 5.1 x10*3/uL (2.0-8.3); Neutrophils Percent Auto 58.1 % (45-73); Platelet Count 424 X10*3/uL (160-400); Red Blood Count 4.19 X10*6/uL (4.20-5.50); White Blood Count 8.7 X10*3/uL (4.8-10.8)
[2024-04-11 10:19] LABS: Estimated Average Glucose 103 mg/dL; Hemoglobin A1C 96.0902 umol/L; Hemoglobin A1c % 5.2 % (<6.0); Total Hemoglobin (HGBA1C) 2884.1385 umol/L
[2024-04-11 10:32] LABS: Alanine Aminotransferase 17 U/L (0-31); Albumin Level 4.3 g/dL (3.5-5.0); Alkaline Phosphatase 87 U/L (39-117); Anion Gap 10 (12-20); Aspartate Amino Transferase 20 U/L (5-31); Bilirubin Total 0.4 mg/dL (0.0-1.0); Blood Urea Nitrogen 19 mg/dL (9-16); C Reactive Protein 0.71 mg/dL (< or = 0.50); Calcium 9.8 mg/dL (8.4-10.2); Carbon Dioxide 27 mmol/L (22-29); Chloride 111 mmol/L (96-108); Cholesterol 167 mg/dL (<200); Estimated Glomerular Filt Rate > 60; Glucose Random 81 mg/dL (60-115); HDL Cholesterol 47 mg/dL (>40); Iron 60 mcg/dL (30-160); LDL Cholesterol Calculated 105 mg/dL (<100); Percent Iron Saturation 22 % (15-50); Potassium 4.7 mmol/L (3.3-5.1); Sodium 143 mmol/L (135-145); Total Iron Binding Capacity 270 mcg/dL (228-428); Total Protein 7.5 g/dL (6.5-8.0); Triglycerides 79 mg/dL (<150); Unsaturated Iron Binding 210 ug/dL
[2024-04-11 10:41] LABS: Ferritin 73 ng/mL (10-250); Insulin 4 uU/mL (2-29); TSH reflex Free T4 1.96 uIU/mL (0.32-4.0); Vitamin D 25-OH Total 71.4 ng/mL (>30)
[2024-04-11 10:44] LABS: Folate 16.3 ng/mL (> or = 4.0); Vitamin B12 424 pg/mL (200-900)
[2024-04-14 17:58] LABS: Vitamin A 41 mcg/dL (38-98)
[2024-04-14 19:09] LABS: Zinc 75 mcg/dL (60-130)
[2024-04-20 14:19] LABS: Vitamin B1 16 nmol/L (8-30)
== END 2024-04-11 08:32 | disposition home or self-care (01) ==
LOC: HO.LAB 08:31
PROVIDERS: PCP Physician Assistant; Visit Provider Physician Assistant Surgical
DX: Z98.84 Bariatric surgery status (principal)
CPT/HCPCS: 36415; 80053; 80061; 82306; 82607; 82728; 82746; 83036; 83525; 83540; 84425; 84443; 84590; 84630; 85025; 86140

== ENCOUNTER 2024-07-25 13:34 | Outpatient (AMB) | payer MEDICAID, SELFPAY ==
--- NOTE | 2024-07-25 13:31 | A.OFFVIS_ITS ---
Intake Visit Reasons: TV PO LSG 08/26/23 Merchandise Associate Required: Yes Merchandise Associate Name: [id number] Allergies No Known Allergies Allergy (Verified 09/24/23 10:25) HPI Comments Details: This?is a?[]?yo [] who is s/p LSG with[out] hiatal hernia repair on?[]. Presents for [] post op visit. Weight at last visit on [] was [] pounds with a BMI of [], weight today is [] pounds, representing a [] pound weight loss with a BMI today of [].? No complaints of nausea, emesis, abdominal pain or reflux, or constipation. Present meal plan includes: celebrate 4 in 1, 1 scoop in 8 oz almond milk 6-8, 9-11 isopure 1 scoop in 8 oz water 12-2 ZP bar 5-8 Exercise routine includes: PF gym treadmill and stationary bike almost every day, goal 500 karli Pt reports problems of excess skin of arms and abdomen. Regarding excess skin of arms, she is having difficulty finding clothing that fits comfortably due to volume of excess skin of arms. Her mobility is limited when she is walking and becomes uncomfortable due to excess skin of arms rubbing against the torso with movement. Pt reports problems of excess skin of abdomen, including having difficulty finding pants that fit comfortably. She has to wear a compressive waistband or garment to hold the excess skin in place to prevent discomfort. She has noticed moisture in the skin folds which smells unpleasant and she has to wash and shower frequently. [facility] Medical History (Updated 04/10/24 @ 10:08 by DESTINY Valerio) Back pain Loose, teeth Pleural lipoma GERD (gastroesophageal reflux disease) DJD (degenerative joint disease) Morbid obesity (~03/30/23) Surgical History Hx of laparoscopic partial gastrectomy Hx of tubal ligation Hx of section Family History Mother Hypertension Alzheimer disease Father Hypertension Diabetes Daughter No problems noted. Daughter No problems noted. Son Autism Social History Household Members: Family Housing: House Are you a primary senior resident care director to a significant other at home: Yes (children) Do you presently have visiting nurse or other home services: No 75 years or older and lives alone: No Alcohol intake: current Alcohol intake frequency: holidays/special occasions only Patient Tobacco Use Status: Never used Tobacco service: No Assessment & Plan Assessment & Plan Plan Congratulated pt on her success so far with weight loss, starting weight 282lbs at first visit with us. Will continue meal plan per Dr Mehreen Snyder ordered. Discussed skin removal surgery requirements, pt will qualify in Jan 2025. Pt is experiencing issues of excess skin of upper arms and abdomen resulting in limitation of movement, difficulty with clothing fitting comfortably, and discomfort due to excess skin. RTC 3 months for in person visit for physical exam.
--- NOTE | 2024-07-25 13:42 | A.OFFVIS_ITS ---
VS Expanded 07/25/24 13:46 Height 5 ft 4 in Weight 138 lb BMI 23.7 Intake Visit Reasons: TV PO LSG 08/26/23 Site Technician Name: Cinthya [id number] Allergies No Known Allergies Allergy (Verified 09/24/23 10:25) HPI Comments Details: This?is a?44?yo F who is s/p LSG 08/26/2023. Presents for 11mo post op visit. Weight at last visit on 04/10/2024 was 148.8 pounds with a BMI of 25.5, weight today is 138 pounds, representing a 10.8 pound weight loss with a BMI today of 23.7.? No complaints of nausea, emesis, abdominal pain or reflux, or constipation. Her dad recently ; she had to travel for that. Present meal plan includes: celebrate 4 in 1, 1 scoop in 8 oz almond milk 6-8, 9-11 isopure 1 scoop in 8 oz water 12-2 ZP bar 5-8 did try to add 1 scrambled egg at breakfast, tolerated well Exercise routine includes: PF gym treadmill and stationary bike almost every day, goal 500 karli Pt reports problems of excess skin of arms and abdomen. Regarding excess skin of arms, she is having difficulty finding clothing that fits comfortably due to volume of excess skin of arms. Her mobility is limited when she is walking and becomes uncomfortable due to excess skin of arms rubbing against the torso with movement. Pt reports problems of excess skin of abdomen, including having difficulty f inding pants that fit comfortably. She has to wear a compressive waistband or garment to hold the excess skin in place to prevent discomfort. She has noticed moisture in the skin folds which smells unpleasant and she has to wash and shower frequently. [facility] Medical History (Updated 07/25/24 @ 13:53 by DESTINY Valerio) Back pain Loose, teeth Pleural lipoma GERD (gastroesophageal reflux disease) DJD (degenerative joint disease) Morbid obesity (~03/30/23) Surgical History Hx of laparoscopic partial gastrectomy Hx of tubal ligation Hx of section Family History Mother Hypertension Alzheimer disease Father Hypertension Diabetes Daughter No problems noted. Daughter No problems noted. Son Autism Social History Household Members: Family Housing: House Are you a primary healthcare social worker to a significant other at home: Yes (children) Do you presently have visiting nurse or other home services: No 75 years or older and lives alone: No Alcohol intake: current Alcohol intake frequency: holidays/special occasions only Patient Tobacco Use Status: Never used Tobacco service: No Telehealth Telehealth Telehealth Platform: Telephone Location of provider rendering services: practice address Location of patient: address on file Patient Identification confirmed using: Name, : Yes Telehealth method: voice only Patient verbally consented to treatment: Yes Patient verbally consented to billing insurance company: Yes Patient informed of any privacy concerns related to visit: Yes Minutes spent on Phone/Video with Pt.: 15 Assessment & Plan Assessment & Plan (1) S/P laparoscopic sleeve gastrectomy: Code(s): Z98.84 - Bariatric surgery status Category: Surgical (2) Excess skin: Code(s): L98.7 - Excessive and redundant skin and subcutaneous tissue Category: Medical Plan Congratulated pt on her success so far with weight loss, starting weight 282lbs at first visit with us. Will continue meal plan per Dr Guajardo. She is happy with current plan but will discuss introduction of solid food with him this week when she sends her weight. Pt is experiencing issues of excess skin of upper arms and abdomen resulting in limitation of movement, difficulty with clothing fitting comfortably, and discomfort due to excess skin. Will order clotrimazole ointment. Will repeat labs at next visit. RTC 3 months for in person visit for photos. Medications: New clotrimazole 1% 1 appl topical BID 45 grams 3RF
--- OUTSIDE RECORDS SUMMARY | 2024-07-25 13:42 | XMS_ITS | Clinical Summary ---
Author Organization [facility] Address [address] [place] [address] Care Team Providers Care Quahogger Name Role Phone Mei Lee PA-C Primary Care Provider [phone] Source Comments PLEASE NOTE, if this patient is a minor, it may be UNLAWFUL to discuss sensitive information that is contained in these records (such as FAMILY PLANNING, MENTAL HEALTH or SUBSTANCE ABUSE) with the minor patient's parent or other person without the patient's specific authorization.[facility] Allergies No known active allergies Medications methocarbamoL (ROBAXIN) 500 mg tabletIndication s:Acute pain of right shoulder Take 1 Tablet by mouth 3 (three) times daily 30 Tablet 3 Active docusate sodium (COLACE) 100 mg capsuleIndicatio ns:Constipation, unspecified constipation type Take 1 Capsule by mouth 2 (two) times daily 20 Capsule 4 Active mupirocin (BACTROBAN) 2 % ointmentIndicati ons:Abscess Apply 1 Application topically 3 (three) times daily 22 g 4 Active gabapentin (NEURONTIN) 300 mg capsuleIndicatio ns:Arm lesion, left Take 1 Capsule by mouth 3 (three) times daily 45 Capsule 4 Active sulfamethoxazole -trimethoprim (BACTRIM DS) 800-160 mg per tablet Take 1 Tablet by mouth 2 (two) times daily 14 Tablet 4 Active Active Problems Problem Noted Date Diagnosed Date Abnormal mammogram 03/12/2021 Overview (03/12/2021): + probable lymph node at left breast. 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 Dizziness 07/27/2019 Anemia 09/12/2015 Overview (09/12/2015): Taking OTC iron BID Last hgb 10 09/11/15 BMI 40.0-44.9, adult 07/09/2015 Overview (01/08/2016): Images from the original note were not included. BHAVANA Aguilera ? Pt scheduled for weight loss seminar on 01/14/16@1pm ? Previous Messages ?? ----- Message ----- ? From: BHAVANA Alvarado ? Sent: 12/31/2015 ?? 8:15 AM ? To: Jaqueline Conner Rosalva Camacho is a 35 year old female Had a ?Weight ref- did she go? ??Was supposed to re schedule as missed aug appt ? please obtain note/s Thank you, Prerna Had aug appt Ref to wc Resolved Problems Problem Noted Date Diagnosed Date Resolved Date SHAH (headache) 02/11/2022 Overview (04/25/2015): onset was 2 mon ago. Left occip. Rel with tylenol Blurry vision 02/11/2022 Overview (04/25/2015): no eye eval Tachycardia 02/11/2022 Overview (04/25/2015): no syncope. onset was 3 mon ago. No CP Immunizations Immunization Administration Dates Next Due Flu, Preservative Free 11/21/2019,11/28/2018, Hep B, Adult/Adol (ENERGIX/RECOMBIVAX) 7,06/22/2016,06/14/2015 INFLUENZA, SEASONAL, INJECTABLE 02/19/2016 Moderna COVID-19 Vaccine, re d cap blue label, 12+ Primary Series 05/28/2020,04/30/2020 TDAP 06/14/2015 Family History Medical History Relation Name Comments Diabetes Father Heart Problems Father Hypertension Father Heart Problems Maternal Grandmother High Cholesterol Mother Alcohol/Drug Abuse Paternal Grandmother Asthma Sister 1 Diabetes Sister 1 Hypertension Sister 1 Relation Name Status Comments Father Alive Maternal Grandfather unknow Maternal Grandmother Mother Alive Paternal Grandfather unknown Paternal Grandmother Sister 1 Alive Sister 2 Alive Social History Tobacco Use Types Packs/Day Years Used Date Smoking Tobacco: Never Smokeless Tobacco: Never Tobacco Cessation:Counseling Given: Not Answered Alcohol Use Standard Drinks/Week Comments Yes 0 (1 standard drink = 0.6 oz pur e alcohol) social Social Connections Answer Date Recorded Connectedness 1 09/23/2023 Financial Resource Strain Answer Date R ecorded Financial Resource Strain 1 2023 Stress Answer Date Recorded Stress 1 09/23/2023 Physical Activity Answer Date Recorded Physical Activity 0 03/22/2019 Food Insecurity Answer Date Recorded Food 1 09/23/2023 Transportation Needs Answer Date Record ed Transportation 1 09/23/2023 Housing Stability Answer Date Recorded Housing 1 09/23/2023 Safety and Environment Answer Date Tab rded Safety 0 10/13/2022 Utilities Answer Date Recorded Utilities 1 09/23/2023 Employment Answer Date Recorded Stress 0 03/22/2019 Comments No Sex and Gender Information Value Date Recorded Sex Assigned at Female 03/05/2017 7:24 AM PST Legal Sex Female 11:32 AM PST Gender Identity Female 03/05/2017 7:24 AM PST Sexual Orientation Straight 03/05/2017 7: 24 AM PST 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 on file Not on file Not on file Last Filed Vital Signs Vital Sign Reading Time Taken Comments Blood Pressure 124/80 10/11/2023 2:23 PM EDT Pulse 75 10/11/2023 2:23 PM EDT Temperature 36.9 ??C (98.5 ??F) 10/11/2023 2:23 PM ED T Respiratory Rate 18 10/11/2023 2:23 PM EDT Oxygen Saturation 95% 06/28/2023 2:08 PM EDT Inhaled Oxygen Concentration - - Weight 104.8 kg (231 lb) 10/11/2023 2:23 PM EDT Height 165.1 cm (5' 5 ) 09/23/2023 9:30 AM EDT Body Mass Index 38.44 09/23/2023 9:30 AM EDT Plan of Treatment Health Maintenance Due Date Last Done Comments HPV Screening 1980 Annual Wellness (Adult): Indicated (All Coverage) 10/14/2023 10/13/2022, 10/10/2021, 11/21/2019, Additional history exists Relationship Safety Screening/Counseling 10/14/2023 10/13/2022, 10/07/2021, 03/18/2020, Additional history exists Breast Cancer Screening (Mammogram) 10/23/2023 10/22/2022, 09/04/2021, 03/04/2021, Additional history exists Tqs-LLOCD-26 () 10/31/2023 03/18/2021, 05/28/2020, 04/30/2020 Imm-Influenza (#1) 2023 01/11/2023, 0 04/01/2022, 03/03/2021, Additional history exists Alcohol and Drug Screen 03/01/2024 09/23/19 24, 06/28/2023, 04/15/2022, Additional history exists Depression Annual Screen 03/01/2024 024, 09/02/2017, 06/22/2016 Anxiety Screening 09/22/2024 09/23/2023 Diabetes Screening 10/10/2024 10/11/2023, 0 10/13/2022, 10/10/2021, Additional history exists Hypertension Screening (#1) 10/10/2024 Tobacco Screening 10/15/2024 10/16/2023 Pap Smear 01/14/2025 01/14/2022, 05/31, 06/14/2015 Lipid Screening 10/13/2025 10/13/2022, 0804/2021, 02/28/2020, Additional history exists Cervical Cancer Screening 01/14/2027 Pap + HPV 01/14/2027 01/14/2022, 05/31, 06/14/2015 Imm-DTaP/Tdap/Td (3 - Td or Tdap) 09/07/2031 022, 06/14/2015 HIV Screening Completed 01/14/2022, 04/25/2015 Hepatitis C Screening Completed 01/14/2022, 016 Imm-Hepatitis B Completed 01/11/2023, 08/01, 06/22/2016, Additional history exists Cervical Ablation/Cold-Knife Conization Discontinued Cervical Cryotherapy Discontinued Colposcopy Discontinued Endometrial Biopsy Discontinued Excision/Leep Discontinued HPV Genotyping Discontinued Vaginal Pap Discontinued Vulvoscopy Discontinued Goals Goal Patient Goal Type Associated Problems Recent Progress Patient-Stated? Author Increase Physical Activity Exercise No Kenna Carmichael Note: Patient will increase physical activity by walking for 1 hour 4 days weekly, for the next 6 months. CHW/CM will encourage patient at weekly/biweekly follow ups to participate in physical activity over the next 6 months. Health Management General No Isidra Lagunas, RN Note: Patient will adhere to low fat, low carbohydrate diet, for the next 6 months. To be achieved by reducing portion sizes and incorporating vegetables in 2 meals daily. 2. Patient will be present for scheduled appointments and phone contacts as scheduled, for the next 6 months. 3. CHW/CM will call patient weekly/biweekly respectively to assess compliance and encourage patient for the next 6 months. 4. CHW/CM during weekly/biweekly contacts will remind patient of upcoming scheduled appointments for the next 6 months. 5. Patient will monitor her progress by taking her weight weekly for the next 6 months. Procedures Procedure Name Priority Date/Time Associated Diagnosis Comments COMPREHENSIVE METABOLIC PANEL Routine 10/11/2023 3:14 PM EDT Arm lesion, left REFERRAL FOR MAMMOGRAM Routine 3:00 AM EDT Routine general medical examination at a health care facility LIPIDS W RFLX TO DIRECT LDL Routine 10/13/2022 9:54 AM EDT Routine general medical examination at a health care facility HIV 1/2 AG & AB W/RFLX (4TH GEN) Routine 01/14/2022 11:28 AM EST Exposure to STD HEPATITIS C AB W/RFLX HCV RNA, QT, RT PCR Routine 01/14/2022 11:28 AM EST Exposure to STD THIN PREP PAP + HPV RNA E6/E7 (Q) Routine 01/14/2022 11:13 AM EST Cervical cancer screening from Last 3 Months or Most Recently Relevant to Health Maintenance Results * COMPREHENSIVE METABOLIC PANEL (10/11/2023 3:14 PM EDT) GLUCOSE 83 65 - 139 mg/dL [facility] Comment: ?Non-fasting reference interval UREA NITROGEN (BUN) 11 7 - 25 mg/dL [facility] CREATININE (blood) 0.56 0.50 - 0.99 mg/dL [facility] EGFR 117 > OR = 60 mL/min/1. 73m2 [facility] BUN/CREATININE RATIO SEE NOTE: [facility] Comment: ?? Not Reported: BUN and Creatinine are within ?? reference range. ? SODIUM 140 135 - 146 mmol/L [facility] POTASSIUM 3.6 3.5 - 5.3 mmol/L [facility] CHLORIDE 100 98 - 110 mmol/L [facility] CARBON DIOXIDE 28 20 - 32 mmol/L [facility] CALCIUM 9.7 8.6 - 10.2 mg/dL [facility] PROTEIN, TOTAL 6.5 6.1 - 8.1 g/dL [facility] ALBUMIN 4.0 3.6 - 5.1 g/dL [facility] GLOBULIN 2.5 1.9 - 3.7 g/dL (calc) [facility] ALBUMIN/GLOBULI N RATIO 1.6 1.0 - 2.5 (calc) [facility] BILIRUBIN, TOTAL 0.4 0.2 - 1.2 mg/dL [facility] ALKALINE PHOSPHATASE 78 31 - 125 U/L [facility] AST 16 10 - 30 U/L [facility] ALT 15 6 - 29 U/L [facility] Blood Blood / Unknown 10/11/2023 3 :14 PM EDT 10/11/2023 3:15 PM EDT Narrative [facility] - 10/19/2023 1:32 PM EDT FASTING:NO Yasir Shamar Nela SLEEP TECHNOLOGIST LAB - BLOOD DRAW E dited Result - Final [facility] [address] [address], [facility] [address] [place] [address] * REFERRAL FOR MAMMOGRAM SCREENING (10/22/2022 3:00 AM EDT) 10/22/2022 3:00 AM EDT Deneen Del Cid [facility] [employer] IM[facility] RFL MAMMO Edited Result - Final * (ABNORMAL) Lipid Panel (with Reflex Direct LDL) (10/13/2022 9:54 AM EDT) CHOLESTEROL, TOTAL 183 <200 mg/dL [facility] HDL CHOLESTEROL 49(L) > OR = 50 mg/dL [facility] TRIGLYCERIDES 113 <150 mg/dL [facility] LDL-CHOLESTEROL 112(H) 99 mg/dL (calc) [facility] Comment: Reference range: <100 Desirable range <100 mg/dL for primary prevention; ?? <70 mg/dL for patients with CHD or diabetic patients with > or = 2 CHD risk factors. LDL-C is now calculated using the Mario-Alis calculation, which is a validated novel method providing better accuracy than the Friedewald equation in the estimation of LDL-C. Mario SS et al. RISSA. 2013;310(19): 0723-3777 (http://education.Mango Reservations/faq/DFQ516) CHOL/HDLC RATIO 3.7 <5.0 (calc) [facility] NON-HDL CHOLESTEROL 134(H) <130 mg/dL (calc) [facility] Comment: For patients with diabetes plus 1 major ASCVD risk factor, treating to a non-HDL-C goal of <100 mg/dL (LDL-C of <70 mg/dL) is considered a therapeutic option. Blood Blood / Unknown 10/13/2022 9 :54 AM EDT 10/13/2022 9:55 AM EDT Narrative [facility] - 10/14/2022 1:49 AM EDT FASTING:NO Deneen Del Cid NP LAB - BLOOD DRAW Final Result Performing Organization Address [facility]/ZIP Co de Phone Number [facility] [address] [address], [place] [address] [address] * Hep C Antibody with Reflex HCV RNA (01/14/2022 11:28 AM EST) Pathologist [facility] HEPATITIS C ANTIBODY NON-REACT TINO NON-REACT TINO [facility] SIGNAL TO CUT-OFF 0.03 <1.00 [facility] Comment: HCV antibody was non-reactive. There is no laboratory evidence of HCV infection. In most cases, no further action is required. However, if recent HCV exposure is suspected, a test for HCV RNA (test code 86913) is suggested. For additional information please refer to http://education.Cortex/faq/ZNY49f8 (This link is being provided for informational/ educational purposes only.) Blood Blood / Unknown 01/14/2022 1 1:28 AM EST 01/14/2022 11:29 AM EST Mei Lee PA-C LAB - BLOOD DRAW Edited Resu lt - Final Performing Organization Address City/[facility]/ZIP Co de Phone Number [facility] [address] [address], [place] [address],[facility] [place] [address] * HIV Ag & Ab with Reflex Western Blot (01/14/2022 11:28 AM EST) HIV AG/AB, 4TH GEN NON-REAC TIVE NON-REAC TIVE [facility] Comment: HIV-1 antigen and HIV-1/HIV-2 antibodies were not detected. There is no laboratory evidence of HIV infection. PLEASE NOTE: This information has been disclosed to you from records whose confidentiality may be protected by state law. ??If your state requires such protection, then the state law prohibits you from making any further disclosure of the information without the specific written consent of the person to whom it pertains, or as otherwise permitted by law. A general authorization for the release of medical or other information is NOT sufficient for this purpose. ?? For additional information please refer to http://education.Cortex/faq/BFV586 (This link is being provided for informational/ educational purposes only.) The performance of this assay has not been clinically validated in patients less than 2 years old. Blood Blood / Unknown 01/14/2022 1 1:28 AM EST 01/14/2022 11:29 AM EST us Mei Lee PA-C LAB - BLOOD DRAW Final Resul t [facility] [address] [place] [id number], [facility] [address] [place] [address],[place] [address] * THIN PREP PAP + HPV RNA E6/E7 (Q) (01/14/2022 11:13 AM EST) CLINICAL INFORMATION See Note [facility] Comment:Routine exam LMP See Note [facility] Comment:[id number] PREV. PAP See Note [facility] Comment:NONE GIVEN PREV. BX See Note [facility] Comment:NONE GIVEN SOURCE See Note [facility] Comment:Cervix STATEMENT OF ADEQUACY See Note [facility] Comment: Satisfactory for evaluation. Endocervical/transformation zone component absent. INTERPRETATION/RESU LT See Note [facility] Comment:Negative for intraep ithelial lesion or malignancy. INFECTION See Note [facility] Comment: Shift in vaginal anais suggestive of bacterial vaginosis. BACK SHOE WORKER See Note [facility] Comment: RMM, CT(ASCP) CT screening location: [address] ??[address] REVIEW BACK SHOE WORKER See Note [facility] Comment: DCR, CT(ASCP) CT screening location: [address] ??[address] COMMENT [facility] HPV MRNA E6/E7 Not Detected Not Detected [facility] Comment: Methodology: Cardiovascular Surgical Tech-Mediated Amplification This assay detects E6/E7 viral messenger RNA (mRNA) from 14 high-risk HPV types (16,18,31,33,35,39,45,51,52,56,58,59,66,68). Cervical sources are required for HPV testing. If a vaginal source from a patient who has had a total hysterectomy with removal of cervix was submitted, please contact the testing laboratory for alternative testing options. For additional information, please refer to http://education.Cortex/faq/JCC264z7 (This link if provided for information/ educational purposes only.) CYTOLOGY Cervix uteri structure / Unknown 01/14/2022 11:13 AM EST 01/15/2022 8:52 AM EST Narrative [facility] - 01/17/2022 11:03 AM EST EXPLANATORY NOTE: The Pap is a screening test for cervical cancer. It is not a diagnostic test and is subject to false negative and false positive results. It is most reliable when a satisfactory sample, regularly obtained, is submitted with relevant clinical findings and history, and when the Pap result is evaluated along with historic and current clinical information. Mei Lee PA-C LAB - PATHOLOGY AND CYTOLOGY AMBULATORY Final Result [facility] [address] [address], [facility] [address] [address] from Last 3 Months or Most Recently Relevant to Health Maintenance Insurance [facility] [place] [address] HEALTH SAFETY NET DENTAL [address] ACO Care Teams Quahogger Relationship Specialty Start Date End Date Mei Lee PA-C [address] [place] [id number] PCP - General Internal Medicine 02/08/20
[2024-07-25 13:46] VITALS: BMI 23.7
== END 2024-07-25 14:05 | disposition home or self-care (01) ==
LOC: HO.HBS 13:34
PROVIDERS: PCP Physician Assistant; Visit Provider Physician Assistant Surgical
DX: Z98.84 Bariatric surgery status (principal); L98.7 Excessive and redundant skin and subcutaneous tissue
CPT/HCPCS: 99214

== ENCOUNTER → 2024-07-25 13:34 | Outpatient (BNVA) | payer MEDICAID, SELFPAY | PROVIDERS: PCP Physician Assistant; Visit Provider Physician Assistant Surgical ==

== ENCOUNTER 2024-11-22 11:18 | Outpatient (AMB) | payer MEDICAID, SELFPAY ==
--- NOTE | 2024-11-22 11:27 | A.OFFVIS_ITS ---
VS Expanded 11/22/24 11:41 BP 113/59 L Blood Pressure Location Rt brachial Blood Pressure Position Sitting Pulse 73 Pulse Source Pulse Oximeter Temp 97.8 F Temperature Source Temporal Artery Scan Pulse Oximetry 100 Oxygen Delivery Method Room Air Height 5 ft 4 in Weight 166 lb 3.2 oz BMI 28.5 Body Fat % 33.9 Body Fat Mass 56.2 Fat Free Mass 109.8 Visceral Fat Rating 0 Body Water % 47.1 Body Water Mass 78.2 Muscle Mass/Score 104.2 Basal Metabolic Rate/Score 1,494 Intake Visit Reasons: (OV) PO LSG 08/26/23 Medicaid Analyst Required: Yes Medicaid Analyst Name: Holger Gan [id number] Allergies No Known Allergies Allergy (Verified 09/24/23 10:25) Medication List - Last Reconciled 11/22/24 by DESTINY Valerio acetaminophen 650 mg PO Q6H PRN bisacodyl (Dulcolax (bisacodyl)) 10 mg TX DAILY PRN clotrimazole 1% 1 appl topical BID HPI Comments Details: This?is a 44?yo F who is s/p LSG 08/26/2023. Presents for 15mo post op visit. Weight at last visit on 07/25/2024 was 138lbs; weight today is 166.2lbs. Starting weight 282lbs at first visit with us. No complaints of nausea, emesis, reflux, or constipation. She has some LUQ abdominal pain which comes and goes. Unrelated to eating, been going on for about 3 weeks. No hard stool/bleeding stool/constipation. Has a BM almost every day. Her home scale says she weighs 144lbs. Present meal plan includes: celebrate 4 in 1, 1 scoop in 8 oz almond milk 6-8, 9-11 isopure 1 scoop in 8 oz water 12-2 ZP bar 5-8 Exercise routine includes: no longer going to gym- but walks every day after work a couple of miles Pt reports problems of excess skin of arms and abdomen. Regarding excess skin of arms, she is having difficulty finding clothing that fits comfortably due to volume of excess skin of arms. Her mobility is limited when she is walking and becomes uncomfortable due to excess skin of arms rubbing against the torso with movement. She notes again the excess skin of the arms continuing to cause pain due to the heaviness of the skin. Pt reports problems of excess skin of abdomen, including having difficulty finding pants that fit comfortably. She has to wear a compressive waistband or garment to hold the excess skin in place to prevent discomfort. She has noticed moisture in the skin folds which smells unpleasant and she has to wash and shower frequently. [facility] Medical History (Updated 07/25/24 @ 13:53 by DESTINY Valerio) Back pain Loose, teeth Pleural lipoma GERD (gastroesophageal reflux disease) DJD (degenerative joint disease) Morbid obesity (~03/30/23) Surgical History Hx of laparoscopic partial gastrectomy Hx of tubal ligation Hx of section Family History Mother Hypertension Alzheimer disease Father Hypertension Diabetes Daughter No problems noted. Daughter No problems noted. Son Autism Social History Household Members: Family Housing: House Are you a primary home health care case manager to a significant other at home: Yes (children) Do you presently have visiting nurse or other home services: No 75 years or older and lives alone: No Alcohol intake: current Alcohol intake frequency: holidays/special occasions only Patient Tobacco Use Status: Never used Tobacco service: No Assessment & Plan Assessment & Plan (1) S/P laparoscopic sleeve gastrectomy: Code(s): Z98.84 - Bariatric surgery status Category: Surgical (2) Overweight: Code(s): E66.3 - Overweight Category: Medical Plan Starting weight 282lbs at first visit with us. Pt will come in for monthly weight checks for the next 3 months. Can ensure ongoing weight loss on our scale. She has not introduced solid food. She has not communicated with Dr Guajardo since July. I adjusted meal plan to the followin-8am Celebrate 1 scoop 10am-12pm Isopure 2-4pm ZP 6pm dinner meal- 4f protein, then can introduce 4f veg/salad if well tolerated Pt is experiencing issues of excess skin of upper arms and abdomen resulting in limitation of movement, difficulty with clothing fitting comfortably, and discomfort due to excess skin. Continue clotrimazole ointment. Labs ordered. Goal weight 157lbs for BMI < 27. Photos taken today. RTC 3 months for 18mo visit.
[2024-11-22 11:41] VITALS: BP 113/59; PULSE 73; TEMP 36.6; O2SAT 100; BMI 28.5
--- OUTSIDE RECORDS SUMMARY | 2024-11-22 14:31 | XMS_ITS | Clinical Summary ---
Author Organization [facility] it Address [address] [place] [address] Care Team Providers Care Account Retention Representative Name Role Phone Unavailable Primary Care Provider Unavailabl e Social History Tobacco Use Types Packs/Day Years Used Date Smoking Tobacco: Never Assessed Comments Unknown Sex and Gender Information Value Date Recorded Sex Assigned at Not on file Legal Sex Female 5:45 AM EST Gender Identity Not on file Sexual Orientation Not on file Plan of Treatment Health Maintenance Due Date Last Done Comments DTaP,Tdap,and Td Vaccines (1 - Tdap) 01/11/2000 Hepatitis B Vaccines (1 of 3 - 19+ 3-dose series) 01/11/2000 Cervical Cancer Screening: P ap Smear 2002 HIV Screening 02/01/2022 Hepatitis C Screening 02/01/2022 Social Influencers of Health Screening 02/01/2022 Breast Cancer Screening 02/25/2023 02/25/2021 Depression Screening 03/01/2024 COVID-19 Vaccine ( - 2023-2 5 season) 2024 Influenza Vaccine (#1) 2024 HIB Vaccines Aged Out No longer eligi ble based on patient's age to complete this topic HPV Vaccines Aged Out No longer eligi ble based on patient's age to complete this topic Hepatitis A Vaccines Aged Out No long er eligible based on patient's age to complete this topic IPV Vaccines Aged Out No longer eligi ble based on patient's age to complete this topic MMR Vaccines Aged Out No longer eligi ble based on patient's age to complete this topic Meningococcal ACWY Vaccine Aged Out N o longer eligible based on patient's age to complete this topic Meningococcal B Vaccine Aged Out No l onger eligible based on patient's age to complete this topic Pneumococcal Vaccine: Pediat rics (0 to 5 Years) and At-Risk Patients (6 to 49 Years) Aged Out No longer eligi ble based on patient's age to complete this topic RSV Immunization Patients Un brady 20 months Aged Out No longer eligible b ased on patient's age to complete this topic Varicella Vaccines Aged Out No longer eligible based on patient's age to complete this topic Procedures Procedure Name Priority Date/Time Associated Diagnosis Comments [facility] SCREENING DIGITAL Routine 02/25/2021 5:48 PM EST Encounter for screening mammogram for malignant neoplasm of breast from Last 3 Months or Most Recently Relevant to Health Maintenance Results * [facility] SCREENING DIGITAL (02/25/2021 5:48 PM EST) Anatomical Region Laterality Modality Mammography 02/25/2021 2:01 PM EST Narrative 02/25/2021 5:48 PM EST [facility] Diagnostic Imaging Department [address] [place] [id number] Patient: BEATRICE MORROW /Age/Sex: 1980 - 41 - F Unit#: [id number] Location/Status: [facility] Mnemonic/Ordering Site: [facility] Ordering Physician: SUZE AGUILAR PA-C [facility] Screening Digital - 02/25/21 0 History: Breast cancer screening. Technique: Bilateral digital mammography. Conventional CC and MLO projections with tomosynthesis MLO views and computer aided detection. Comparison: No prior study. Baseline screening mammography.. Findings: Breast tissue consists of fatty and fibroglandular tissue, category b density (as calculated by [employer] software). Oval asymmetry posterior lateral left breast CC projection most likely reflects benign intramammary lymph node but is not definitively characterized. Additional discrete asymmetry noted within the posterior left breast slightly medial to the nipple line on CC projection. No architectural distortion or suspicious grouping of calcification affecting either breast. No concerning asymmetry on the right. Impression: 1. Left breast asymmetries posterior laterally and posterior mid to slightly medial breast are incompletely characterized. Recommend diagnostic mammography to include exaggerated CC projection, spot compression views CC projection and tomography. Possible ultrasound to follow. 2. No concerning focal finding on the right. Patient will be contacted directly to arrange for supplementary imaging. BIRADS Category 0: Incomplete. Needs further imaging evaluation, 3340F [id number], [id number] Patient information entered into a reminder system with a target date for the next mammogram. PQRI [id number] Dictating Physician: JANES EDWARDS MD Electronically Signed by: JANSE EDWARDS MD Dic Date/Time: 02/25/211740 Sign date/Time: 02/25/211747 Procedure Note Janes Edwards MD - 02/18/2022 [facility] Diagnostic Imaging Department [address] [place] [address] Patient: BEATRICE MORROW D.O.B./Age/Sex: 1980 - 41 -F Unit#: [id number] Location/Status: [facility] Mnemonic/Ordering Site: [facility] Ordering Physician: SUZE AGUILAR PA-C [facility] Screening Digital - 02/25/21 - 1456 History: Breast cancer screening. Technique: Bilateral digital mammography. Conventional CC and MLOprojections with tomosynthesis MLO views and computer aided detection. Comparison: No prior study. Baseline screening mammography.. Findings: Breast tissue consists of fatty and fibroglandular tissue,category b density (as calculated by [employer] software). Oval asymmetry posterior lateral left breast CC projection most likelyreflects benign intramammary lymph node but is not definitively characterized. Additional discrete asymmetry noted within the posterior left breastslightly medial to the nipple line on CC projection. No architectural distortionor suspicious grouping of calcification affecting either breast. Noconcerning asymmetry on the right. Impression: 1. Left breast asymmetries posterior laterally and posterior mid toslightly medial breast are incompletely characterized. Recommend diagnosticmammography to include exaggerated CC projection, spot compression views CC projectionand tomography. Possible ultrasound to follow. 2. No concerning focal finding on the right. Patient will be contacted directly to arrange for supplementary imaging. BIRADS Category 0: Incomplete. Needs further imaging evaluation, 3340F [id number], [id number] Patient information entered into a reminder system with a target date forthe next mammogram. PQRI [id number] Dictating Physician: JANES EDWARDS MD Electronically Signed by: JANES EDWARDS MD Dic Date/Time: 02/25/211740 Sign date/Time: 02/25/211747 Suze DIXON IMG BI PROCEDURES Bettye l Result from Last 3 Months or Most Recently Relevant to Health Maintenance
== END 2024-11-22 12:38 | disposition home or self-care (01) ==
LOC: HO.HBS 11:19
PROVIDERS: PCP Physician Assistant; Visit Provider Physician Assistant Surgical
DX: E66.3 Overweight (principal); Z68.28 Body mass index [BMI] 28.0-28.9, adult; Z90.3 Acquired absence of stomach [part of]; Z98.84 Bariatric surgery status; L98.7 Excessive and redundant skin and subcutaneous tissue
CPT/HCPCS: 99213

== ENCOUNTER → 2024-11-22 11:18 | Outpatient (BNVA) | payer MEDICAID, SELFPAY | PROVIDERS: PCP Physician Assistant; Visit Provider Physician Assistant Surgical | DX: L98.7 Excessive and redundant skin and subcutaneous tissue (principal); R10.12 Left upper quadrant pain; E66.3 Overweight; Z68.28 Body mass index [BMI] 28.0-28.9, adult; Z90.3 Acquired absence of stomach [part of] | CPT/HCPCS: 99212 ==

== ENCOUNTER 2024-12-11 07:25 | Outpatient (REF) | payer MEDICAID, SELFPAY ==
--- OUTSIDE RECORDS SUMMARY | 2024-12-11 07:27 | XMS_ITS | Clinical Summary ---
Author Organization [facility] [place] [address] Care Team Providers Care Fitness Leader Name Role Phone Unavailable Primary Care Provider [...] Cervical Cancer Screening: P ap Smear 2002 HPV Vaccines (1 - 3-dose SCD M series) 01/11/2008 HIV Screening 02/01/2022 Hepatitis C Screening 02/01/2022 Social Influencers of Health Screening 02/01/2022 Breast Cancer Screening 02/25/2023 02/25/2021 Depression Screening 03/01/2024 COVID-19 Vaccine ( - 2023-2 5 season) 2024 Influenza Vaccine (#1) 2024 RSV Immunization Adult Patie nts (1 - 1-dose 75+ series) 01/11/2056 HIB Vaccines Aged Out No longer eligi [...] Procedure Name Priority Date/Time Associated Diagnosis Comments [facility] SCREENING DIGITAL Routine 02/25/2021 5:48 PM EST Encounter for screening mammogram for malignant neoplasm of breast from Last 3 Months or Most Recently Relevant to Health Maintenance Results * [facility] SCREENING DIGITAL (02/25/2021 5:48 PM EST) Anatomical Region Laterality Modality Mammography 02/25/2021 2:01 PM EST Narrative 02/25/2021 5:48 PM EST [facility] Diagnostic Imaging Department [address] [place] [address] Patient: SKYLAR MORROW /Age/Sex: 1980 - 41 - F Unit#: [id number] Location/Status: [facility] Mnemonic/Ordering Site: [facility] Ordering Physician: SUZE AGUILAR PA-C [facility] Screening Digital - 02/25/21 - 0841 History: Breast cancer screening. Technique: Bilateral digital mammography. Conventional CC and MLO projections with tomosynthesis MLO views and computer aided detection. Comparison: No prior study. Baseline screening mammography.. Findings: Breast tissue consists of fatty and fibroglandular tissue, category b density (as calculated by [employer] software). Oval asymmetry posterior lateral left breast [...] 0: Incomplete. Needs further imaging evaluation, 3340F 76006, 61553 Patient information entered into a reminder system with a target date for the next mammogram. [place] [id number] Dictating Physician: JANES EDWARDS MD Electronically Signed by: JANES EDWARDS MD Dic Date/Time: 02/25/211740 Sign date/Time: 02/25/211747 Procedure Note Janes Edwards MD - 02/18/2022 [facility] Diagnostic Imaging Department [address] [place] [address] Patient: SKYLAR MORROW /Age/Sex: 1980 - 41 -F Unit#: [id number] Location/Status: [facility] Mnemonic/Ordering Site: [facility] Ordering Physician: SUZE AGUILAR PA-C [facility] Screening Digital - 02/25/21 - 1456 History: Breast cancer screening. Technique: Bilateral digital mammography. Conventional CC and MLOprojections with tomosynthesis MLO views and computer aided detection. Comparison: No prior study. Baseline screening mammography.. Findings: Breast tissue consists of fatty and fibroglandular tissue,category b density (as calculated by [employer] software). Oval asymmetry posterior lateral left breast [...] 0: Incomplete. Needs further imaging evaluation, 3340F 39024, 35653 Patient information entered into a reminder system with a target date forthe next mammogram. PQRI [id number] Dictating Physician: JANES EDWARDS MD Electronically Signed by: JANES EDWARDS MD Dic Date/Time: 02/25/211740 Sign date/Time: 02/25/211747 us Suze DIXON IMG BI PROCEDURES Bettye l Result from Last 3 Months or Most Recently Relevant to Health Maintenance
[2024-12-11 07:45] LABS: MANUAL DIFF FLAG NO
[2024-12-11 08:10] LABS: Hematocrit 35.5 % (37.0-47.0); Hemoglobin 11.3 g/dl (12.0-16.0); Imm Gran Abs Auto 0.01 X10*3/uL (0.00-0.03); Imm Gran Pct Auto 0.1 % (0.0-0.4); Lymphocytes Absolute Auto 3.2 X10*3/uL (1.2-4.9); Mean Corpuscular HGB Conc 31.8 g/dl (31.0-35.0); Mean Corpuscular Hemoglobin 26.3 pg (27.0-33.0); Mean Corpuscular Volume 82.6 fL (80.0-98.0); NRBC Abs Auto 0.000 X10*3/uL (0.0-0.012); NRBC Pct Auto 0.0 /100WBC (0.0-0.2); Platelet Count 340 X10*3/uL (160-400); Red Blood Count 4.30 X10*6/uL (4.20-5.50); White Blood Count 6.9 X10*3/uL (4.8-10.8)
[2024-12-11 08:43] LABS: Alanine Aminotransferase 23 U/L (0-31); Albumin Level 4.5 g/dL (3.5-5.0); Alkaline Phosphatase 75 U/L (39-117); Anion Gap 12 (12-20); Aspartate Amino Transferase 22 U/L (5-31); Blood Urea Nitrogen 22 mg/dL (9-16); Calcium 9.5 mg/dL (8.4-10.2); Carbon Dioxide 27 mmol/L (22-29); Chloride 108 mmol/L (96-108); Cholesterol 170 mg/dL (<200); Estimated Glomerular Filt Rate > 60; HDL Cholesterol 51 mg/dL (>40); Iron 69 mcg/dL (30-160); Percent Iron Saturation 24 % (15-50); Potassium 4.0 mmol/L (3.3-5.1); Sodium 143 mmol/L (135-145); Total Iron Binding Capacity 286 mcg/dL (228-428); Total Protein 7.0 g/dL (6.5-8.0); Triglycerides 75 mg/dL (<150); Unsaturated Iron Binding 217 ug/dL
[2024-12-11 08:57] LABS: Ferritin 33 ng/mL (10-250)
[2024-12-11 09:08] LABS: Folate 13.9 ng/mL (> or = 4.0); Vitamin B12 615 pg/mL (200-900)
== END 2024-12-11 07:26 | disposition home or self-care (01) ==
LOC: HO.LAB 07:25
PROVIDERS: PCP Physician Assistant; Visit Provider Physician Assistant Surgical
DX: Z98.84 Bariatric surgery status (principal)
CPT/HCPCS: 36415; 80053; 80061; 82306; 82607; 82728; 82746; 83036; 83525; 83540; 84425; 84443; 84590; 84630; 85025; 86140